=== PATIENT | female | born 1990 | race Caucasian/White ===

== ENCOUNTER 2017-03-31 05:03 | Emergency (ER) | payer BC ==
[2017-03-31 05:17] VITALS: BP 106/51
--- NOTE | 2017-03-31 05:19 | EDM.PDOC ---
ED HPI GENERAL MEDICAL PROBLEM - General Chief Complaint: Gastrointestinal Problem Stated Complaint: THOWING UP Time Seen by Provider: 03/31/17 05:18 - History of Present Illness INITIAL COMMENTS - FREE TEXT/NARRATIVE: 27-year-old female presents emergency room with vomiting and abdominal discomfort. This started around 3:00 this morning. She has some mild epigastric discomfort. Patient had a prior episode similar to this this last fall and ended up having pancreatitis. Her pain this time isn't as severe. The cause of the pancreatitis could not be identified. There was some thought that was related to her underlying celiac disease. With today's illness, the patient is not aware of any preceding symptoms. She felt fine and normal yesterday. Bilateral Flank Pain Score (Numeric/FACES): 5 - Related Data Allergies Allergy/AdvReac Type Severity Reaction Status Date / Time albuterol Allergy Hyperactivi Verified 03/31/17 05:11 ty cephalexin Allergy Other Verified 09/19/16 13:19 codeine Allergy Rash Verified 09/19/16 13:19 Dairy Products Allergy Diarrhea Verified 09/19/16 13:19 gluten Allergy Other Verified 09/19/16 13:19 Iodinated Contrast Media - Allergy Hives Verified 09/19/16 15:35 Oral and [Iodinated Contrast Media - IV Dye] morphine Allergy Burning Verified 09/19/16 13:19 Sulfa (Sulfonamide Allergy Confusion Verified 09/19/16 13:19 Antibiotics) tramadol Allergy Confusion Verified 09/19/16 13:19 Home Meds: Home Meds Cholecalciferol (Vitamin D3) [Vitamin D] 5,000 intnl unit PO DAILY 04/23/14 [ History] Thyroid,Pork [Nature-Throid] 32.5 mg PO DAILY 05/13/15 [History] Past Medical History Gastrointestinal History: Reports: Celiac Disease Musculoskeletal History: Reports: Fibromyalgia Endocrine/Metabolic History: Reports: Hypothyroidism - Past Surgical History GI Surgical History: Reports: Cholecystectomy Social & Family History - Family History Family Medical History: Noncontributory - Tobacco Use Smoking Status *Q: Never Smoker Second Hand Smoke Exposure: No - Caffeine Use Caffeine Use: Reports: Coffee - Recreational Drug Use Recreational Drug Use: No ED ROS GENERAL - Review of Systems Review Of Systems: See Below Constitutional: Reports: No Symptoms HEENT: Reports: No Symptoms Respiratory: Reports: No Symptoms Cardiovascular: Reports: No Symptoms GI/Abdominal: Reports: Abdominal Pain, Nausea, Vomiting. Denies: Black Stool, Bloody Stool, Constipation, Diarrhea : Reports: No Symptoms Musculoskeletal: Reports: No Symptoms Skin: Reports: No Symptoms Neurological: Reports: No Symptoms ED EXAM, GI/ABD - Physical Exam Exam: See Below Exam Limited By: No Limitations General Appearance: Alert, No Apparent Distress Head: Atraumatic, Normocephalic Neck: Normal Inspection, Supple, Non-Tender, Full Range of Motion. No: Lymphadenopathy (L), Lymphadenopathy (R) Respiratory/Chest: No Respiratory Distress, Lungs Clear, Normal Breath Sounds Cardiovascular: Regular Rate, Rhythm, No Edema, No Murmur GI/Abdominal: Normal Bowel Sounds, Soft, Other (She has some upper abdominal discomfort seems to be worse in the right upper quadrant in the epigastric area. She has had a cholecystectomy in the past.). No: Distention, Guarding, Rebound, Rigidity Course - Vital Signs Last Recorded V/S: Last Vital Signs Temp 36.2 C 03/31/17 05:13 Pulse 83 03/31/17 05:13 Resp 20 03/31/17 05:13 BP 106/51 L 03/31/17 05:13 Pulse Ox 99 03/31/17 05:13 - Orders/Labs/Meds Labs: Laboratory Tests 03/31/17 03/31/17 03/31/17 Range/Units 05:25 05:25 05:45 WBC 8.53 (3.98-10.04) K/mm3 RBC 4.65 (3.98-5.22) M/mm3 Hgb 14.0 (11.2-15.7) gm/L Hct 40.0 (34.1-44.9) % MCV 86.0 (79.4-94.8) fl MCH 30.1 (25.6-32.2) pg MCHC 35.0 (32.2-35.5) g/dl RDW Std Deviation 38.5 (36.4-46.3) fL Plt Count 188 (182-369) K/mm3 MPV 10.8 (9.4-12.3) fl Neutrophils % (Manual) 70 H (40-60) % Band Neutrophils % 0 (0-10) % Lymphocytes % (Manual) 19 L (20-40) % Atypical Lymphs % 0 % Monocytes % (Manual) 9 (2-10) % Eosinophils % (Manual) 2 (0.7-5.8) % Basophils % (Manual) 0 L (0.1-1.2) Platelet Estimate Adequate RBC Morph Comment Normal Sodium (136-145) mEq/L Potassium (3.5-5.1) mEq/L Chloride (98-107) mEq/L Carbon Dioxide (21-32) mEq/L Anion Gap (5-15) BUN (7-18) mg/dL Creatinine (0.55-1.02) mg/dL Est Cr Clr Drug Dosing mL/min Estimated GFR (MDRD) (>60) mL/min BUN/Creatinine Ratio (14-18) Glucose (74-106) mg/dL Calcium (8.5-10.1) mg/dL Total Bilirubin (0.2-1.0) mg/dL AST (15-37) U/L ALT (14-59) U/L Alkaline Phosphatase (46-116) U/L Total Protein (6.4-8.2) g/dl Albumin (3.4-5.0) g/dl Globulin gm/dL Albumin/Globulin Ratio (1-2) Lipase (73-393) U/L Urine Color Yellow (Yellow) Urine Appearance Clear (Clear) Urine pH 6.0 (5.0-8.0) Ur Specific [place] 1.015 (1.005-1.030) Urine Protein Negative (Negative) Urine Glucose (UA) Negative (Negative) Urine Ketones Negative (Negative) Urine Occult Blood Trace-lysed H (Negative) Urine Nitrite Negative (Negative) Urine Bilirubin Negative (Negative) Urine Urobilinogen 0.2 (0.2-1.0) Ur Leukocyte Esterase Negative (Negative) Urine RBC 5-10 H (0-5) /hpf Urine WBC 0-5 (0-5) /hpf Ur Epithelial Cells 0-5 (0-5) /hpf Urine Bacteria Rare (FEW) /hpf Urine Mucus Not seen (FEW) /hpf Urine HCG, Qual Negative (NEGATIVE) 03/31/17 Range/Units 05:45 WBC (3.98-10.04) K/mm3 RBC (3.98-5.22) M/mm3 Hgb (11.2-15.7) gm/L Hct (34.1-44.9) % MCV (79.4-94.8) fl MCH (25.6-32.2) pg MCHC (32.2-35.5) g/dl RDW Std Deviation (36.4-46.3) fL Plt Count (182-369) K/mm3 MPV (9.4-12.3) fl Neutrophils % (Manual) (40-60) % Band Neutrophils % (0-10) % Lymphocytes % (Manual) (20-40) % Atypical Lymphs % % Monocytes % (Manual) (2-10) % Eosinophils % (Manual) (0.7-5.8) % Basophils % (Manual) (0.1-1.2) Platelet Estimate RBC Morph Comment Sodium 139 (136-145) mEq/L Potassium 3.6 (3.5-5.1) mEq/L Chloride 106 (98-107) mEq/L Carbon Dioxide 23 (21-32) mEq/L Anion Gap 13.6 (5-15) BUN 13 (7-18) mg/dL Creatinine 0.9 (0.55-1.02) mg/dL Est Cr Clr Drug Dosing 88.68 mL/min Estimated GFR (MDRD) > 60 (>60) mL/min BUN/Creatinine Ratio 14.4 (14-18) Glucose 93 (74-106) mg/dL Calcium 8.8 (8.5-10.1) mg/dL Total Bilirubin 1.0 (0.2-1.0) mg/dL AST 22 (15-37) U/L ALT 33 (14-59) U/L Alkaline Phosphatase 92 (46-116) U/L Total Protein 7.4 (6.4-8.2) g/dl Albumin 3.8 (3.4-5.0) g/dl Globulin 3.6 gm/dL Albumin/Globulin Ratio 1.1 (1-2) Lipase 136 (73-393) U/L Urine Color (Yellow) Urine Appearance (Clear) Urine pH (5.0-8.0) Ur Specific [place] (1.005-1.030) Urine Protein (Negative) Urine Glucose (UA) (Negative) Urine Ketones (Negative) Urine Occult Blood (Negative) Urine Nitrite (Negative) Urine Bilirubin (Negative) Urine Urobilinogen (0.2-1.0) Ur Leukocyte Esterase (Negative) Urine RBC (0-5) /hpf Urine WBC (0-5) /hpf Ur Epithelial Cells (0-5) /hpf Urine Bacteria (FEW) /hpf Urine Mucus (FEW) /hpf Urine HCG, Qual (NEGATIVE) Meds: Medications Discontinued Medications Generic Name Dose Route Start Last Admin Trade Name Olivia PRN Reason Stop Dose Admin Al Hydroxide/Mg Hydroxide 30 0 ml 03/31/17 05:34 03/31/17 05:57 ml/ Lidocaine HCl 15 ml PO 03/31/17 05:35 45 ml ONETIME ONE Administration Lactated Ringer's 1,000 mls @ 999 mls/hr 03/31/17 05:34 03/31/17 05:46 Ringers, Lactated IV 03/31/17 06:34 999 mls/hr .BOLUS ONE Administration Ondansetron HCl 4 mg 03/31/17 05:34 03/31/17 05:54 Zofran IVPUSH 03/31/17 05:35 4 mg ONETIME ONE Administration - Re-Assessments/Exams Free Text/Narrative Re-Assessment/Exam: 03/31/17 06:40 Upon arrival to the emergency room the patient was given Zofran and had an IV started. Her nausea promptly improved she still had some epigastric discomfort. Patient had some improvement with the GI cocktail her labs are back and are nonsuggestive lipase is normal urinalysis does not suggest an infectious process however she does have a few red cells present. Chemistries and CBC normal. HCG negative. 03/31/17 07:04 At this point the patient think she's okay to go home we all agree that a CT scan probably would not be of benefit. She agrees to return in 12 hours if not better sooner if getting worse. Departure - Departure Time of Disposition: 07:05 Disposition: Home, Self-Care 01 Clinical Impression: Gastroenteritis - Discharge Information Forms: ED Department Discharge Additional Instructions: Return to the emergency room with any questions or problems. Return in 12 hours if not improving, sooner if getting worse. You have been given Zofran 4 mg #10 from the machine in the waiting room. Use one every 4 hours as needed, it will dissolve on top of or underneath your tongue. Pickup some [id number] Pepcid, or famotidine, take 20 mg twice daily for 7 days and then decrease to once daily. Followup in the clinic on Saturday for recheck.
[2017-03-31] MEDS ORDERED: Alum Hydrox/Mag Hydrox/Simeth 30 ML, Lidocaine 2% 15 ML PO ONE ×2 (05:34)
[2017-03-31] MEDS ORDERED: Lactated Ringers 1,000 ML IV ONE (05:34)
[2017-03-31] MEDS ORDERED: Ondansetron 4 MG/2 ML SDV IVPUSH ONE (05:34)
== END 2017-03-31 07:39 | disposition home or self-care (01) ==
LOC: JD.ED 05:03
DX: K52.9 Noninfective gastroenteritis and colitis, unspecified (principal); E03.9 Hypothyroidism, unspecified; Z90.49 Acquired absence of other specified parts of digestive tract; Z79.899 Other long term (current) drug therapy; Z88.5 Allergy status to narcotic agent; Z88.1 Allergy status to other antibiotic agents; Z88.2 Allergy status to sulfonamides; Z91.041 Radiographic dye allergy status; Z91.011 Allergy to milk products
CPT/HCPCS: 36415; 80053; 81001; 81025; 83690; 85025; 96361; 96374; 99284; A9270; J2405; J7120

== ENCOUNTER 2017-06-09 13:24 | Emergency (ER) | payer BC ==
[2017-06-09] MEDS ORDERED: Sodium Chloride 0.9% 1,000 ML IV ONE (14:01)
[2017-06-09] MEDS ORDERED: Ondansetron 4 MG/2 ML SDV IVPUSH ONE (14:01)
[2017-06-09] MEDS ORDERED: Sodium Chloride 0.9% 10 ML Syringe FLUSH PRN (14:01)
[2017-06-09] MEDS ORDERED: HYDROmorphone 0.5 MG/0.5 ML Syringe IVPUSH ONE (14:09)
--- NOTE | 2017-06-09 16:48 | EDM.PDOC ---
ED HPI GENERAL MEDICAL PROBLEM - General Chief Complaint: Abdominal Pain Stated Complaint: ABDOMINAL PAIN Time Seen by Provider: 06/09/17 13:57 Source of Information: Reports: Patient History Limitations: Reports: No Limitations - History of Present Illness INITIAL COMMENTS - FREE TEXT/NARRATIVE: 27-year-old female presents for evaluation treatment of abdominal pain. Reports the pain is generalized and is located throughout her entire abdomen and flanks. Patient states that the pain has been going on for the last few days and is steadily worsening. Reports that today is the worst pain she's had thus far. Describes the pain as a cramping sensation and a "pulled muscle" and rates it as a 7 or 8 out of 10. Reports that movement makes pain worse. Patient reports nausea but states that is episodic and she always has nausea. She also reports dizziness but again reports that this is episodic and she chronically has dizziness. Patient states that she does feel constipated. Last bowel movement was yesterday, however, it was a small bowel movement and difficult to pass. She denies any fevers, chills, vomiting, dysuria, hematuria or diarrhea. She states that she did see some bright red blood on the toilet tissue several days ago. She has been taking Colace for her constipation and Zofran for her nausea. Last dose of Zofran was yesterday. Last menstrual period was the beginning of May. Patient has a past medical history of fibromyalgia and celiac disease. She states that because of her fibromyalgia it is difficult for her to identify exactly where she has pain. Review of patient's records show that she was previously hospitalized for pancreatitis in August of 2016. 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 Lower Abdominal Pain Score (Numeric/FACES): 7 - Related Data Allergies Allergy/AdvReac Type Severity Reaction Status Date / Time albuterol Allergy Hyperactivi Verified 03/31/17 05:11 ty cephalexin Allergy Other Verified 09/19/16 13:19 codeine Allergy Rash Verified 09/19/16 13:19 Dairy Products Allergy Diarrhea Verified 09/19/16 13:19 gluten Allergy Other Verified 09/19/16 13:19 Iodinated Contrast- Oral and Allergy Hives Verified 09/19/16 15:35 IV Dye [Iodinated Contrast Media - IV Dye] morphine Allergy Burning Verified 09/19/16 13:19 Sulfa (Sulfonamide Allergy Confusion Verified 09/19/16 13:19 Antibiotics) tramadol Allergy Confusion Verified 09/19/16 13:19 Home Meds: Home Meds Cholecalciferol (Vitamin D3) [Vitamin D] 5,000 intnl unit PO DAILY 04/23/14 [ History] Thyroid,Pork [Nature-Throid] 32.5 mg PO DAILY 05/13/15 [History] Past Medical History Gastrointestinal History: Reports: Celiac Disease Musculoskeletal History: Reports: Fibromyalgia Endocrine/Metabolic History: Reports: Hypothyroidism - Past Surgical History GI Surgical History: Reports: Cholecystectomy Social & Family History - Family History Family Medical History: Noncontributory - Tobacco Use Smoking Status *Q: Never Smoker Second Hand Smoke Exposure: No - Caffeine Use Caffeine Use: Reports: Coffee - Recreational Drug Use Recreational Drug Use: No ED ROS GENERAL - Review of Systems Review Of Systems: See Below Constitutional: Denies: Fever, Chills GI/Abdominal: Reports: Abdominal Pain, Nausea (episodic). Denies: Diarrhea, Vomiting : Reports: No Symptoms, Flank Pain (bilteral). Denies: Dysuria, Hematuria Neurological: Reports: Tremors (chronic) ED EXAM, GI/ABD - Physical Exam Exam: See Below Exam Limited By: No Limitations General Appearance: Alert, WD/WN, No Apparent Distress, Other (patinet is wearing sunglasses during my examination) Ears: Normal External Exam Nose: Normal Inspection Throat/Mouth: Normal Inspection, Normal Lips, Normal Voice, No Airway Compromise Neck: Normal Inspection Respiratory/Chest: No Respiratory Distress, Lungs Clear, Normal Breath Sounds Cardiovascular: Normal Peripheral Pulses, Regular Rate, Rhythm, No Murmur GI/Abdominal Exam: Normal Bowel Sounds, Soft, Tender (generalized; reports pain with any palpation) Neurological: Alert, Oriented, Normal Cognition Psychiatric: Normal Affect, Normal Mood Skin Exam: Warm, Dry, Normal Color Course - Vital Signs Last Recorded V/S: Last Vital Signs Temp 36.2 C 06/09/17 13:33 Pulse 78 06/09/17 17:10 Resp 16 06/09/17 17:10 BP 101/64 06/09/17 17:10 Pulse Ox 100 06/09/17 17:10 - Orders/Labs/Meds Labs: Laboratory Tests 06/09/17 06/09/17 06/09/17 Range/Units 14:10 14:10 14:10 WBC 6.03 (3.98-10.04) K/mm3 RBC 4.60 (3.98-5.22) M/mm3 Hgb 13.8 (11.2-15.7) gm/L Hct 39.6 (34.1-44.9) % MCV 86.1 (79.4-94.8) fl MCH 30.0 (25.6-32.2) pg MCHC 34.8 (32.2-35.5) g/dl RDW Std Deviation 37.7 (36.4-46.3) fL Plt Count 184 (182-369) K/mm3 MPV 10.4 (9.4-12.3) fl Neutrophils % (Manual) 60 (40-60) % Band Neutrophils % 1 (0-10) % Lymphocytes % (Manual) 23 (20-40) % Atypical Lymphs % 2 % Monocytes % (Manual) 11 H (2-10) % Eosinophils % (Manual) 3 (0.7-5.8) % Basophils % (Manual) 0 L (0.1-1.2) Platelet Estimate Adequate Plt Morphology Comment Normal RBC Morph Comment Normal Sodium 139 (136-145) mEq/L Potassium 4.5 (3.5-5.1) mEq/L Chloride 104 (98-107) mEq/L Carbon Dioxide 26 (21-32) mEq/L Anion Gap 13.5 (5-15) BUN 11 (7-18) mg/dL Creatinine 0.9 (0.55-1.02) mg/dL Est Cr Clr Drug Dosing 88.68 mL/min Estimated GFR (MDRD) > 60 (>60) mL/min BUN/Creatinine Ratio 12.2 L (14-18) Glucose 87 (74-106) mg/dL Calcium 9.7 (8.5-10.1) mg/dL Total Bilirubin 1.4 H (0.2-1.0) mg/dL AST 20 (15-37) U/L ALT 27 (14-59) U/L Alkaline Phosphatase 96 (46-116) U/L C-Reactive Protein < 0.2 (<1.0) mg/dL Total Protein 7.3 (6.4-8.2) g/dl Albumin 3.9 (3.4-5.0) g/dl Globulin 3.4 gm/dL Albumin/Globulin Ratio 1.2 (1-2) Lipase (73-393) U/L HCG, Qual Negative (NEGATIVE) Urine Color (Yellow) Urine Appearance (Clear) Urine pH (5.0-8.0) Ur Specific [place] (1.005-1.030) Urine Protein (Negative) Urine Glucose (UA) (Negative) Urine Ketones (Negative) Urine Occult Blood (Negative) Urine Nitrite (Negative) Urine Bilirubin (Negative) Urine Urobilinogen (0.2-1.0) Ur Leukocyte Esterase (Negative) Urine RBC (0-5) /hpf Urine WBC (0-5) /hpf Ur Epithelial Cells (0-5) /hpf Urine Bacteria (FEW) /hpf Urine Mucus (FEW) /hpf Urine Yeast (NOT SEEN) 06/09/17 06/09/17 Range/Units 14:10 15:40 WBC (3.98-10.04) K/mm3 RBC (3.98-5.22) M/mm3 Hgb (11.2-15.7) gm/L Hct (34.1-44.9) % MCV (79.4-94.8) fl MCH (25.6-32.2) pg MCHC (32.2-35.5) g/dl RDW Std Deviation (36.4-46.3) fL Plt Count (182-369) K/mm3 MPV (9.4-12.3) fl Neutrophils % (Manual) (40-60) % Band Neutrophils % (0-10) % Lymphocytes % (Manual) (20-40) % Atypical Lymphs % % Monocytes % (Manual) (2-10) % Eosinophils % (Manual) (0.7-5.8) % Basophils % (Manual) (0.1-1.2) Platelet Estimate Plt Morphology Comment RBC Morph Comment Sodium (136-145) mEq/L Potassium (3.5-5.1) mEq/L Chloride (98-107) mEq/L Carbon Dioxide (21-32) mEq/L Anion Gap (5-15) BUN (7-18) mg/dL Creatinine (0.55-1.02) mg/dL Est Cr Clr Drug Dosing mL/min Estimated GFR (MDRD) (>60) mL/min BUN/Creatinine Ratio (14-18) Glucose (74-106) mg/dL Calcium (8.5-10.1) mg/dL Total Bilirubin (0.2-1.0) mg/dL AST (15-37) U/L ALT (14-59) U/L Alkaline Phosphatase (46-116) U/L C-Reactive Protein (<1.0) mg/dL Total Protein (6.4-8.2) g/dl Albumin (3.4-5.0) g/dl Globulin gm/dL Albumin/Globulin Ratio (1-2) Lipase 116 (73-393) U/L HCG, Qual (NEGATIVE) Urine Color Light yellow (Yellow) Urine Appearance Clear (Clear) Urine pH 6.0 (5.0-8.0) Ur Specific [place] 1.020 (1.005-1.030) Urine Protein Negative (Negative) Urine Glucose (UA) Negative (Negative) Urine Ketones Negative (Negative) Urine Occult Blood Negative (Negative) Urine Nitrite Negative (Negative) Urine Bilirubin Negative (Negative) Urine Urobilinogen 0.2 (0.2-1.0) Ur Leukocyte Esterase Negative (Negative) Urine RBC Not seen (0-5) /hpf Urine WBC 0-5 (0-5) /hpf Ur Epithelial Cells 5-10 H (0-5) /hpf Urine Bacteria Rare (FEW) /hpf Urine Mucus Not seen (FEW) /hpf Urine Yeast Not seen (NOT SEEN) Meds: Medications Discontinued Medications Generic Name Dose Route Start Last Admin Trade Name Freq PRN Reason Stop Dose Admin Hydromorphone HCl 0.5 mg 06/09/17 14:09 06/09/17 14:27 Dilaudid IVPUSH 06/09/17 14:10 0.5 mg ONETIME ONE Administration Sodium Chloride 1,000 mls @ 999 mls/hr 06/09/17 14:01 06/09/17 14:23 Normal Saline IV 06/09/17 15:01 999 mls/hr ONETIME ONE Administration Ondansetron HCl 4 mg 06/09/17 14:01 06/09/17 14:25 Zofran IVPUSH 06/09/17 14:02 4 mg ONETIME ONE Administration Sodium Chloride 10 ml 06/09/17 14:01 06/09/17 14:10 Saline Flush FLUSH 10 ml ASDIRECTED PRN Administration Keep Vein Open - Radiology Interpretation Free Text/Narrative:: flat and upright abdominal xrays show no air fluid lines; increased stool in the right colon. - Re-Assessments/Exams Free Text/Narrative Re-Assessment/Exam: 06/09/17 16:41 Labs returned. Given that the patient's lab work and vital signs are within normal limits, I do not feel that a CT scan is warranted at this time. The patient then talks about how she has had abdominal pain for what sounds like several years. She states that she has been the [facility] for this. No etiology for her abdominal pain has been found thus far. I encouraged her that we were able to rule out things like pancreatitis, bowel obstruction, etc. I feel that she is likely constipated however, she is adamant that this pain is not from constipation. I will discharge her home with instructions to follow-up with her primary care provider. Discharge instructions as documented. Departure - Departure Time of Disposition: 16:47 Disposition: Home, Self-Care 01 Condition: Fair Clinical Impression: Abdominal pain of unknown etiology, Constipation - Discharge Information Instructions: Constipation, Adult, Abdominal Pain, Adult, [id number] Referrals: Mellissa Delong PA [Primary Care Provider] - Forms: ED Department Discharge Additional Instructions: Go home and rest. [id number] Tylenol or Motrin as needed for pain relief. Continue using your Colace, fluids and fiber. Follow-up with your primary care provider this week. Please return to ER if your symptoms change or worsen.
[2017-06-09 17:24] VITALS: BP 101/64
--- NOTE | 2017-06-11 10:32 | CR ---
Abdomen: Supine and upright views of the abdomen were obtained. Comparison: Previous abdominal x-ray of 09/19/16. Surgical clips are seen from prior cholecystectomy. Bowel gas pattern is normal. No abnormal calcifications or discrete soft tissue abnormality is seen. No free air is seen. Bony structures are within normal limits for the patient's age. Slight scoliosis is incidentally noted. Impression: 1. Incidental findings. Diagnostic code #2
== END 2017-06-09 17:10 | disposition home or self-care (01) ==
LOC: JD.ED 13:24
DX: K59.00 Constipation, unspecified (principal); E03.9 Hypothyroidism, unspecified; Z88.1 Allergy status to other antibiotic agents; Z88.5 Allergy status to narcotic agent; Z88.2 Allergy status to sulfonamides; Z91.041 Radiographic dye allergy status; Z79.899 Other long term (current) drug therapy; Z90.49 Acquired absence of other specified parts of digestive tract
CPT/HCPCS: 36415; 74020; 80053; 81001; 83690; 84703; 85025; 86140; 96361; 96374; 96375; 99284; J1170; J2405; J7040; J7050

== ENCOUNTER 2017-06-30 00:42 | Emergency (ER) | payer BC ==
[2017-06-30] MEDS ORDERED: LORazepam 2 MG/ML MDV IVPUSH ONE (00:47)
[2017-06-30 00:48] VITALS: BP 137/72
--- NOTE | 2017-06-30 00:56 | EDM.PDOC ---
ED HPI GENERAL MEDICAL PROBLEM - General Chief Complaint: Neuro Symptoms/Deficits Stated Complaint: [facility] Time Seen by Provider: 06/30/17 00:51 Source of Information: Reports: Patient History Limitations: Reports: No Limitations - History of Present Illness INITIAL COMMENTS - FREE TEXT/NARRATIVE: 27-year-old female brought to the ED per ambulance with suspected seizure. She continues to have violent shaking episodes that come and go. She has an IV established and right antecubital fossa and has received 2 mg of Ativan en route to hospital by paramedics. She has no known seizure disorder. Upon arrival she has generalized shaking which last for a very short period of time with no symmetrical tonic clonic activity. Her O2 sats remained 100% on room air. She is exhibiting signs symptoms of pseudoseizure disorder. She is nonverbal at this time. Eyes are open and she is not focusing on any one thing in the room. 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 (see below) (Has received Ativan 1 mg IV 2 doses en route to hospital by paramedics.) Neck Pain Score (Numeric/FACES): 5 - Related Data Allergies Allergy/AdvReac Type Severity Reaction Status Date / Time albuterol Allergy Hyperactivi Verified 03/31/17 05:11 ty cephalexin Allergy Other Verified 09/19/16 13:19 codeine Allergy Rash Verified 09/19/16 13:19 Dairy Products Allergy Diarrhea Verified 09/19/16 13:19 gluten Allergy Other Verified 09/19/16 13:19 hydrocodone Allergy Nausea Verified 06/30/17 01:03 hydromorphone [From Dilaudid] Allergy Burning Verified 06/30/17 01:03 Iodinated Contrast- Oral and Allergy Hives Verified 09/19/16 15:35 IV Dye [Iodinated Contrast Media - IV Dye] morphine Allergy Burning Verified 09/19/16 13:19 soy Allergy Abdominal Verified 06/30/17 01:03 Pain Sulfa (Sulfonamide Allergy Confusion Verified 09/19/16 13:19 Antibiotics) tramadol Allergy Confusion Verified 09/19/16 13:19 Home Meds: Home Meds Cholecalciferol (Vitamin D3) [Vitamin D] 5,000 intnl unit PO DAILY 04/23/14 [ History] Thyroid,Pork [Nature-Throid] 32.5 mg PO DAILY 05/13/15 [History] Past Medical History Gastrointestinal History: Reports: Celiac Disease Musculoskeletal History: Reports: Fibromyalgia Endocrine/Metabolic History: Reports: Hypothyroidism - Past Surgical History GI Surgical History: Reports: Cholecystectomy Social & Family History - Family History Family Medical History: Noncontributory - Tobacco Use Smoking Status *Q: Never Smoker Second Hand Smoke Exposure: No - Caffeine Use Caffeine Use: Reports: Coffee - Recreational Drug Use Recreational Drug Use: No - Living Situation & Occupation Living situation: Reports: Single Occupation: Employed ED ROS GENERAL - Review of Systems Review Of Systems: Unable To Obtain - Physical Exam Exam: See Below Exam Limited By: Altered Mental Status General Appearance: Lethargic, Mild Distress Eye Exam: Bilateral Eye: Normal Inspection (Pupils are dilated to 9 mm bilaterally but do respond to light. There is no gaze palsy.) Throat/Mouth: Normal Inspection, Normal Lips, Normal Teeth, Normal Oropharynx, Other Head Exam: Atraumatic (Note is that she has bitten her tongue.), Normocephalic Neck: Normal Inspection, Supple, Non-Tender, Full Range of Motion Respiratory/Chest: Lungs Clear, Normal Breath Sounds, No Accessory Muscle Use, Chest Non-Tender, Respiratory Distress (His tachypnea At rest 24/m i.e. hyperventilation.) Cardiovascular: Normal Peripheral Pulses, Regular Rate, Rhythm, No Edema ( Resting tachycardia of 1 20/m.), No Gallop, No Murmur, No Rub, Tachycardia GI/Abdominal: Normal Bowel Sounds, Soft, Non-Tender, No Organomegaly, No Distention Neuro Exam (Abbreviated): Unresponsive (She initially had a shaking spell when I first examined her but she is not verbally responding at this time. Clinically she is exhibiting pseudoseizure activity.), Other (Babinski's were negative.) DTR: 1+: Achilles (R), Achilles (L), 2+: Bicep (R), Bicep (L), Patella (R), Patella (L) Back Exam: Normal Inspection, Full Range of Motion Extremities: Normal Inspection, Normal Range of Motion, Non-Tender, No Pedal Edema, Normal Capillary Refill Psychiatric: Normal Affect, Normal Mood Skin Exam: Warm, Dry, Intact, Normal Color, No Rash Course - Vital Signs Last Recorded V/S: Last Vital Signs Temp 36.7 C 06/30/17 00:44 Pulse 119 H 06/30/17 00:44 Resp 24 H 06/30/17 00:44 BP 137/72 06/30/17 00:44 Pulse Ox 100 06/30/17 00:44 - Orders/Labs/Meds Orders: Active Orders 24 hr Category Date Time Status PROLACTIN [REF] Stat Lab 06/30/17 01:15 Received Labs: Laboratory Tests 06/30/17 06/30/17 06/30/17 Range/Units 01:15 01:15 01:15 WBC 5.40 (3.98-10.04) K/mm3 RBC 4.37 (3.98-5.22) M/mm3 Hgb 13.1 (11.2-15.7) gm/L Hct 37.4 (34.1-44.9) % MCV 85.6 (79.4-94.8) fl MCH 30.0 (25.6-32.2) pg MCHC 35.0 (32.2-35.5) g/dl RDW Std Deviation 37.7 (36.4-46.3) fL Plt Count 184 (182-369) K/mm3 MPV 10.6 (9.4-12.3) fl Neutrophils % (Manual) 55 (40-60) % Band Neutrophils % 2 (0-10) % Lymphocytes % (Manual) 32 (20-40) % Atypical Lymphs % 0 % Monocytes % (Manual) 6 (2-10) % Eosinophils % (Manual) 5 (0.7-5.8) % Basophils % (Manual) 0 L (0.1-1.2) Platelet Estimate Adequate RBC Morph Comment Normal Sodium 140 (136-145) mEq/L Potassium 3.5 (3.5-5.1) mEq/L Chloride 104 (98-107) mEq/L Carbon Dioxide 22 (21-32) mEq/L Anion Gap 17.5 H (5-15) BUN 18 (7-18) mg/dL Creatinine 1.0 (0.55-1.02) mg/dL Est Cr Clr Drug Dosing TNP Estimated GFR (MDRD) > 60 (>60) mL/min BUN/Creatinine Ratio 18.0 (14-18) Glucose 106 (74-106) mg/dL Calcium 9.3 (8.5-10.1) mg/dL Magnesium 1.8 (1.8-2.4) mg/dl Total Bilirubin 1.0 (0.2-1.0) mg/dL AST 17 (15-37) U/L ALT 19 (14-59) U/L Alkaline Phosphatase 87 (46-116) U/L Total Protein 7.3 (6.4-8.2) g/dl Albumin 3.7 (3.4-5.0) g/dl Globulin 3.6 gm/dL Albumin/Globulin Ratio 1.0 (1-2) TSH 3rd Generation (0.358-3.74) uIU/mL HCG, Qual Negative (NEGATIVE) 06/30/17 Range/Units 01:15 WBC (3.98-10.04) K/mm3 RBC (3.98-5.22) M/mm3 Hgb (11.2-15.7) gm/L Hct (34.1-44.9) % MCV (79.4-94.8) fl MCH (25.6-32.2) pg MCHC (32.2-35.5) g/dl RDW Std Deviation (36.4-46.3) fL Plt Count (182-369) K/mm3 MPV (9.4-12.3) fl Neutrophils % (Manual) (40-60) % Band Neutrophils % (0-10) % Lymphocytes % (Manual) (20-40) % Atypical Lymphs % % Monocytes % (Manual) (2-10) % Eosinophils % (Manual) (0.7-5.8) % Basophils % (Manual) (0.1-1.2) Platelet Estimate RBC Morph Comment Sodium (136-145) mEq/L Potassium (3.5-5.1) mEq/L Chloride (98-107) mEq/L Carbon Dioxide (21-32) mEq/L Anion Gap (5-15) BUN (7-18) mg/dL Creatinine (0.55-1.02) mg/dL Est Cr Clr Drug Dosing Estimated GFR (MDRD) (>60) mL/min BUN/Creatinine Ratio (14-18) Glucose (74-106) mg/dL Calcium (8.5-10.1) mg/dL Magnesium (1.8-2.4) mg/dl Total Bilirubin (0.2-1.0) mg/dL AST (15-37) U/L ALT (14-59) U/L Alkaline Phosphatase (46-116) U/L Total Protein (6.4-8.2) g/dl Albumin (3.4-5.0) g/dl Globulin gm/dL Albumin/Globulin Ratio (1-2) TSH 3rd Generation 5.482 H (0.358-3.74) uIU/mL HCG, Qual (NEGATIVE) Meds: Medications Discontinued Medications Generic Name Dose Route Start Last Admin Trade Name Olivia PRN Reason Stop Dose Admin Folic Acid 1 mg 06/30/17 02:30 06/30/17 03:06 Folic Acid IV 06/30/17 02:31 Not Given ONETIME ONE Dextrose/Sodium Chloride 1,000 mls @ 200 mls/hr 06/30/17 01:00 06/30/17 00:58 Dextrose 5%-Normal Saline IV 200 mls/hr ASDIRECTED BEL Administration Magnesium Sulfate 2 gm/ Premix 50 mls @ 25 mls/hr 06/30/17 02:30 06/30/17 02: 52 IV 06/30/17 04:29 75 mls/hr ONETIME ONE Administration Thiamine HCl 100 mg/ Sodium 101 mls @ 202 mls/hr 06/30/17 02:29 06/30/17 03: 06 Chloride IV 06/30/17 02:30 Not Given ONETIME ONE Multivitamins/Minerals 10 ml/ 1,011.2 mls @ 200 mls/hr 06/30/17 02:45 02:46 Thiamine HCl 100 mg/ Folic IV 06/30/17 07:48 999 mls/hr Acid 1 mg/ Dextrose/Sodium ONETIME ONE Administration Chloride Lorazepam 1 mg 06/30/17 00:47 06/30/17 00:58 Ativan IVPUSH 06/30/17 00:48 1 mg ONETIME ONE Administration Thiamine HCl Confirm 06/30/17 02:37 06/30/17 03:06 Vitamin B-1 Administered 06/30/17 02:38 Not Given Dose 200 mg .ROUTE .STK-MED ONE - Radiology Interpretation Free Text/Narrative:: 27-year-old female presents to the hospital per ambulance after they were summoned to a person having a seizure. Paramedics recognized that her shaking episodes were asymmetrical and morbid violent shaking and atypical for any form of seizure disorder. She has received Ativan 1 mg IV on 2 occasions en route to the hospital which seemed to slow down her violent shaking episodes. She did this shaking episode in the hallway as well as once when I was in the room that lasted maybe 5 seconds. There is no symmetrical tonic-clonic movements but violent shaking on the bed. This is pseudoseizure disorder. Plan Ativan 1 mg IV. Routine labs to be done. She is on a pork form of thyroid supplement. - Re-Assessments/Exams Free Text/Narrative Re-Assessment/Exam: 06/30/17 03:31 patient had a few spontaneous muscle twitches but no focal seizure activity when I was in the room. She seemed to settle left of the third dose of Ativan 1 mg IV. Family is very concerned about her. She is appears to gone downhill dramatically since she got 3 months ago. Often needs to be pushed around in a wheelchair. They feel that there is a neurological disorder that we are missing an unhappy with physician care they have received thus far. She has been down to the [facility] on at least one occasion was diagnosed with celiac disease recently. He is also known to be hypothyroid but prefers organic medicines or natural medicines and therefore is taking a desiccated thyroid preparation for thyroid replacement hormone. She is following up with Dr. Jaquan coon in [facility] for chelation therapy and high-dose vitamin infusions. She did have a normal MRI of her brain carried out by Mellissa manriquez that I reviewed. 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 Current she currently she is exhibiting pseudoseizure activities. The family calls them spasms. She can be completely normal at other times however. They felt she might improve she had vitamins given now and magnesium therefore banana bag was utilized and infused over an hour with 2 g of magnesium thiamine 100 mg 10 mg of metal multivitamin complex and 1 mg of folic acid IV. The family felt that her muscle spasm seemed to settle after this. She was thus discharged to home. They have plans to follow up with both gastroenterology and neurology in [place] within the next 2 weeks. Departure - Departure Time of Disposition: 03:44 Disposition: Home, Self-Care 01 Condition: Fair Clinical Impression: Chronic fatigue syndrome with fibromyalgia, Pseudoseizures, Hypothyroidism ( acquired), Celiac disease/sprue - Discharge Information Instructions: Nonepileptic Seizures, Fatigue, Hypothyroidism Referrals: Mellissa Manriquez PA [Primary Care Provider] - Forms: ED Department Discharge Additional Instructions: Evaluation in the emergency room tonight in regards to violent shaking episodes which we call pseudoseizure disorder. The cause of this disorder is unknown. Lab work identified no major infective processes. He did identify that your thyroid medication needs to be taken on a more consistent basis or the dosage needs to be increased as your thyroid stimulating hormone remains elevated at 5.482. If treatment is appropriate it should be down around 2.0. At present you are functioning with a underactive thyroid gland. You're treated in the emergency room with intravenous banana bag which contains 2 g of magnesium 1 mg of folic acid and 100 mg of thiamine and 10 mg of multivitamin vitamins which are almost all vitamin B and C vitamins. Suggest follow-up with neurology services as planned and gastroenterology services to address gluten enteropathy your celiac disease. - My Orders Last 24 Hours: My Active Orders 06/30/17 01:15 PROLACTIN [REF] Stat - Assessment/Plan Last 24 Hours: My Active Orders 06/30/17 01:15 PROLACTIN [REF] Stat
[2017-06-30] MEDS ORDERED: Dextrose 5%-0.9% NaCl 1,000 ML IV SCH (01:00)
[2017-06-30] MEDS ORDERED: Thiamine 100 MG in Sodium Chloride 0.9% 100 ML IV ONE (02:29)
[2017-06-30] MEDS ORDERED: MVI, Adult with Vitamin K 10 ML SDV IV ONE (02:30)
[2017-06-30] MEDS ORDERED: Folic Acid 50 MG/10 ML MDV IV ONE (02:30)
[2017-06-30] MEDS ORDERED: Magnesium Sulfate/Water 2 GM in Premix Bag 1 BAG IV ONE (02:30)
[2017-06-30] MEDS ORDERED: Thiamine 200 MG/2 ML MDV ONE (02:37)
[2017-06-30] MEDS ORDERED: THIAMINE IV ONE ×4 (02:45)
[2017-06-30] MEDS ORDERED: [UNRECOGNIZED DRUG - OTHER] IV ONE ×4 (02:45)
[2017-06-30] MEDS ORDERED: VITAMIN K IV ONE ×4 (02:45)
[2017-06-30] MEDS ORDERED: FOLIC ACID IV ONE ×4 (02:45)
[2017-06-30] MEDS ORDERED: MVI IV ONE ×4 (02:45)
== END 2017-06-30 04:15 | disposition home or self-care (01) ==
LOC: JD.ED 00:42
DX: M79.7 Fibromyalgia (principal); K90.0 Celiac disease; E03.9 Hypothyroidism, unspecified; R53.82 Chronic fatigue, unspecified; Z88.1 Allergy status to other antibiotic agents; Z88.5 Allergy status to narcotic agent; Z88.2 Allergy status to sulfonamides; Z91.041 Radiographic dye allergy status; Z79.899 Other long term (current) drug therapy; Z90.49 Acquired absence of other specified parts of digestive tract
CPT/HCPCS: 36415; 80053; 83735; 84146; 84443; 84703; 85025; 96361; 96365; 96366; 96368; 96375; 99285; J2060; J3411; J7042; J3475

== ENCOUNTER 2017-06-30 16:16 | Emergency (ER) | payer BC, SELFPAY ==
[2017-06-30] MEDS ORDERED: LORazepam 2 MG/ML MDV IVPUSH ONE ×3 (16:29→18:58)
[2017-06-30 16:39] VITALS: BP 142/71
[2017-06-30] MEDS: LORazepam 2 MG/ML MDV ONE ×2 (16:39→17:26)
[2017-06-30] MEDS ORDERED: LORazepam 2 MG/ML MDV ONE (16:40)
--- NOTE | 2017-06-30 18:17 | EDM.PDOC ---
ED HPI GENERAL MEDICAL PROBLEM - General Chief Complaint: Neurological Problem Stated Complaint: SEIZURE IN THE CAR Time Seen by Provider: 06/30/17 16:16 - History of Present Illness INITIAL COMMENTS - FREE TEXT/NARRATIVE: 27-year-old female presents emergency room with seizure-like activity. Patient was seen here shortly after midnight today had a fairly extensive evaluation and was thought to have pseudoseizures. Patient's states that the patient's had multiple activities over the last couple hours they were getting her ready to go to [place] for a second opinion and between the house in here she had 5 of these activities. Thought to be seizures the patient's states patient has had increased activity over the last several months where she has used involuntary leg movements were she's awake and talking during them but these are clearly different the patient has these activities the last 6-8 seconds where she has mild muscle shaking in all 4 extremities her head will arch back and her eyes were back in her head just prior to the starting. So the seem different I did have the opportunity to observe several of these where her pulse would go up as her eyes rolled back she would develop this very high-frequency involuntary movement of all 4 extremities this did last 6-10 seconds. After her last episode I was able to check her eyes immediately after words were eyes were dilated been slowly responded to light. During these episodes she has not had any loss of bowel or bladder control Headache Pain Score (Numeric/FACES): 5 - Related Data Allergies Allergy/AdvReac Type Severity Reaction Status Date / Time albuterol Allergy Hyperactivi Verified 06/30/17 16:33 ty cephalexin Allergy Other Verified 06/30/17 16:33 codeine Allergy Rash Verified 06/30/17 16:33 Dairy Products Allergy Diarrhea Verified 06/30/17 16:33 gluten Allergy Other Verified 06/30/17 16:33 hydrocodone Allergy Nausea Verified 06/30/17 16:33 hydromorphone [From Dilaudid] Allergy Burning Verified 06/30/17 16:33 Iodinated Contrast- Oral and Allergy Hives Verified 06/30/17 16:33 IV Dye [Iodinated Contrast Media - IV Dye] morphine Allergy Burning Verified 06/30/17 16:33 soy Allergy Abdominal Verified 06/30/17 16:33 Pain Sulfa (Sulfonamide Allergy Confusion Verified 06/30/17 16:33 Antibiotics) tramadol Allergy Confusion Verified 06/30/17 16:33 Home Meds: Home Meds Cholecalciferol (Vitamin D3) [Vitamin D] 5,000 intnl unit PO DAILY 04/23/14 [ History] Thyroid,Pork [Nature-Throid] 32.5 mg PO DAILY 05/13/15 [History] Past Medical History Gastrointestinal History: Reports: Celiac Disease Musculoskeletal History: Reports: Fibromyalgia Endocrine/Metabolic History: Reports: Hypothyroidism - Past Surgical History GI Surgical History: Reports: Cholecystectomy Social & Family History - Family History Family Medical History: Noncontributory - Tobacco Use Smoking Status *Q: Never Smoker Second Hand Smoke Exposure: No - Caffeine Use Caffeine Use: Reports: Coffee - Recreational Drug Use Recreational Drug Use: No - Living Situation & Occupation Living situation: Reports: Single Occupation: Employed ED ROS GENERAL - Review of Systems Review Of Systems: Unable To Obtain - Physical Exam Exam: See Below Exam Limited By: Other (Postictal like activity) General Appearance: Lethargic Eye Exam: Bilateral Eye: Normal Inspection, PERRL (After one of her episodes I was able to observe and her pupils were dilated and slowly did respond to light) Ears: Normal External Exam, Normal Canal, Hearing Grossly Normal, Normal TMs Nose: Normal Inspection, Normal Mucosa Throat/Mouth: Normal Inspection, Normal Lips, Normal Oropharynx, Normal Voice, No Airway Compromise Head Exam: Atraumatic, Normocephalic Neck: Normal Inspection, Full Range of Motion. No: Lymphadenopathy (L), Lymphadenopathy (R), Tender Midline, Thyromegaly Respiratory/Chest: No Respiratory Distress, Lungs Clear, Normal Breath Sounds Cardiovascular: Regular Rate, Rhythm, No Edema, No Murmur GI/Abdominal: Normal Bowel Sounds, Soft, Non-Tender Neuro Exam (Abbreviated): Confused, Slow to Respond Back Exam: Normal Inspection, Paraspinal Tenderness, Vertebral Tenderness. No: CVA Tenderness (L), CVA Tenderness (R) Extremities: Normal Inspection, No Pedal Edema Course - Vital Signs Last Recorded V/S: Last Vital Signs Temp 37.9 C 06/30/17 16:33 Pulse 130 H 06/30/17 16:33 Resp BP 142/71 H 06/30/17 16:33 Pulse Ox 95 06/30/17 16:33 - Orders/Labs/Meds Orders: Active Orders 24 hr Category Date Time Status Head wo Cont [CT] Stat Exams 06/30/17 16:43 Taken DRUG SCREEN, URINE [URCHEM] Stat Lab 06/30/17 18:11 Uncollected URINALYSIS W/MICROSCOPIC [UA W/MICROSCOPIC] [URIN] Stat Lab 06/30/17 18:10 Uncollected Meds: Medications Discontinued Medications Generic Name Dose Route Start Last Admin Trade Name Olivia PRN Reason Stop Dose Admin Lorazepam Confirm 06/30/17 16:28 06/30/17 17:26 Ativan Administered 06/30/17 16:29 Not Given Dose 2 mg .ROUTE .STK-MED ONE Lorazepam Confirm 06/30/17 16:40 06/30/17 17:09 Ativan Administered 06/30/17 16:41 Not Given Dose 2 mg .ROUTE .STK-MED ONE Lorazepam 2 mg 06/30/17 16:29 06/30/17 16:29 Ativan IVPUSH 06/30/17 16:30 2 mg ONETIME ONE Administration Lorazepam 2 mg 06/30/17 16:39 06/30/17 16:39 Ativan IVPUSH 06/30/17 16:40 2 mg ONETIME ONE Administration Lorazepam 2 mg 06/30/17 18:58 06/30/17 19:05 Ativan IVPUSH 06/30/17 18:59 2 mg ONETIME ONE Administration - Re-Assessments/Exams Free Text/Narrative Re-Assessment/Exam: 06/30/17 19:20 Patient seizure type activity has slowed after second dose of Ativan 2 mg. I did discuss situation with Dr. Cee who couldn't be certain one where the other and offered to have the patient evaluated in [facility] emergency room. Shortly after this the patient had another episode that I witnessed she was talking before this and then developed a blank stare her eyes rolled back she developed about an 8 second episode of very fast for extremity clonic activity she was sleepy after this and took her a while to wake up she received a second 2 mg of Ativan I did check her eyes and her eyes were dilated but did respond to light. Prior to this last seizure case was discussed with Dr. Ayala ER physician at [facility] who is willing to accept the patient. Our urine specimen was accidentally discarded we'll try to obtain a second one for urinalysis and toxicology the patient had lab work done earlier this last morning this was not repeated. I did however get a head CT that showed no acute changes no abnormalities identified. The patient has been has a medial on his phone of the patient having a different type of activity where she is awake and having for extremity much slower muscle movement that may be involuntary this does not appear to me to be seizures the patient is awake during these episodes. But this is clearly much different than what she is demonstrated here in the emergency room. Departure - Departure Time of Disposition: 19:00 Disposition: DC/Tfer to [facility] 02 Clinical Impression: Seizure-like activity - Discharge Information Referrals: PCP,None [Primary Care Provider] - Forms: ED Department Discharge - My Orders Last 24 Hours: My Active Orders 06/30/17 16:43 Head wo Cont [CT] Stat 06/30/17 18:10 URINALYSIS W/MICROSCOPIC [UA W/MICROSCOPIC] [URIN] Stat 06/30/17 18:11 DRUG SCREEN, URINE [URCHEM] Stat - Assessment/Plan Last 24 Hours: My Active Orders 06/30/17 16:43 Head wo Cont [CT] Stat 06/30/17 18:10 URINALYSIS W/MICROSCOPIC [UA W/MICROSCOPIC] [URIN] Stat 06/30/17 18:11 DRUG SCREEN, URINE [URCHEM] Stat
--- NOTE | 2017-07-01 12:15 | CT ---
Head CT Technique: Multiple axial sections through the brain were obtained. Intravenous contrast was not utilized. Comparison: No previous head CT exam, previous MRI brain of 06/11/17 is available. Findings: Ventricles along with basal cisterns and sulci over the convexities appear within normal limits for the patient's age. No abnormal parenchymal densities are seen. No evidence of intracranial hemorrhage. No midline shift or mass effect is seen. Bone window settings were reviewed which show no acute calvarial abnormality. Visualized sinuses are clear. Impression: 1. No abnormality is identified on noncontrast head CT study. No significant change is seen from prior MRI brain. Diagnostic code #1 Agree with preliminary report issued by [facility] ([facility] preliminary report dictated on 06/30/17, 6:43 PM Central Time)
== END 2017-06-30 20:00 ==
LOC: JD.ED 16:16
DX: R29.818 Other symptoms and signs involving the nervous system (principal); E03.9 Hypothyroidism, unspecified; M79.7 Fibromyalgia; K90.0 Celiac disease; R53.81 Other malaise; R53.82 Chronic fatigue, unspecified; Z88.5 Allergy status to narcotic agent; Z91.011 Allergy to milk products; Z88.1 Allergy status to other antibiotic agents; Z91.041 Radiographic dye allergy status; Z88.6 Allergy status to analgesic agent; Z79.899 Other long term (current) drug therapy; Z90.49 Acquired absence of other specified parts of digestive tract
CPT/HCPCS: 36415; 70450; 80053; 80306; 81001; 83735; 84146; 84443; 84703; 85025; 96361; 96365; 96366; 96368; 96374; 96375; 96376; 99285; J2060; J3411; J7042; J3475

== ENCOUNTER 2017-11-06 05:51 | Emergency (ER) | payer BC, SELFPAY ==
[2017-11-06] MEDS ORDERED: Sodium Chloride 0.9% 1,000 ML IV SCH ×2 (06:30→07:30)
--- NOTE | 2017-11-06 06:30 | EDM.PDOC ---
ED HPI GENERAL MEDICAL PROBLEM - General Chief Complaint: Gastrointestinal Problem Stated Complaint: DEHYDRATED Time Seen by Provider: 11/06/17 06:18 Source of Information: Reports: Patient, RN Notes Reviewed - History of Present Illness INITIAL COMMENTS - FREE TEXT/NARRATIVE: 27-year-old female comes in with symptoms of diarrhea, possible dehydration. She does have history of gluten sensitivity, probable celiac disease. She states she has had quite severe diarrhea for the past 3 or 4 days and intermittently before that. She has had some abdominal pain and cramping but none at this time. She's had nausea but no vomiting. She states when she does drink water then she will have increased abdominal pain and cramping. No chest pain or difficulty breathing. Her mouth does feel dry. Generalized Pain Score (Numeric/FACES): 5 - Related Data Allergies Allergy/AdvReac Type Severity Reaction Status Date / Time albuterol Allergy Hyperactivi Verified 11/06/17 06:10 ty cephalexin Allergy Other Verified 11/06/17 06:10 codeine Allergy Rash Verified 11/06/17 06:10 Dairy Products Allergy Diarrhea Verified 11/06/17 06:10 gluten Allergy Other Verified 11/06/17 06:10 hydrocodone Allergy Nausea Verified 11/06/17 06:10 hydromorphone [From Dilaudid] Allergy Burning Verified 11/06/17 06:10 Iodinated Contrast- Oral and Allergy Hives Verified 11/06/17 06:10 IV Dye [Iodinated Contrast Media - IV Dye] morphine Allergy Burning Verified 11/06/17 06:10 soy Allergy Abdominal Verified 11/06/17 06:10 Pain Sulfa (Sulfonamide Allergy Confusion Verified 11/06/17 06:10 Antibiotics) tramadol Allergy Confusion Verified 11/06/17 06:10 Home Meds: Home Meds Cholecalciferol (Vitamin D3) [Vitamin D] 7,000 intnl unit PO DAILY 04/23/14 [ History] Thyroid,Pork [Nature-Throid] 32.5 mg PO DAILY 05/13/15 [History] Cetirizine [ZyrTEC] 10 mg PO DAILY 11/06/17 [History] Cyanocobalamin (Vitamin B12) [Vitamin B12] 10,000 mcg SUBCUT MOWEFR 11/06/17 [ History] Fexofenadine [Libertad] 180 mg PO DAILY 11/06/17 [History] Methylfolate 10 mg PO DAILY 11/06/17 [History] Midodrine 2.5 mg PO DAILY 11/06/17 [History] Naltrexone 50 mg PO DAILY 11/06/17 [History] Neuroprotek 1 tab PO 6XDAY 11/06/17 [History] Propranolol [Inderal] 5 mg PO BID 11/06/17 [History] Ranitidine HCl [Zantac] 150 mg PO DAILY 11/06/17 [History] Past Medical History Gastrointestinal History: Reports: Celiac Disease Musculoskeletal History: Reports: Fibromyalgia Endocrine/Metabolic History: Reports: Hypothyroidism Hematologic History: Reports: Other (See Below) Other Hematologic History: EDS, mecasts syndrome, small fiber neuropathy - Past Surgical History GI Surgical History: Reports: Cholecystectomy Social & Family History - Family History Family Medical History: Noncontributory - Tobacco Use Smoking Status *Q: Never Smoker Second Hand Smoke Exposure: No - Caffeine Use Caffeine Use: Reports: None - Recreational Drug Use Recreational Drug Use: No - Living Situation & Occupation Living situation: Reports: Single Occupation: Employed ED ROS GENERAL - Review of Systems Review Of Systems: See Below Constitutional: Denies: Fever, Chills HEENT: Reports: Other. Denies: Throat Pain Respiratory: Denies: Shortness of Breath Cardiovascular: Denies: Chest Pain (Multiple stride) GI/Abdominal: Reports: Abdominal Pain (Intermittent), Diarrhea, Nausea. Denies : Vomiting Skin: Reports: No Symptoms Neurological: Reports: Dizziness ED EXAM, GI/ABD - Physical Exam Exam: See Below General Appearance: Alert, No Apparent Distress Throat/Mouth: Other (Oral mucosa is moist) Neck: Supple, Full Range of Motion Respiratory/Chest: No Respiratory Distress, Lungs Clear, Normal Breath Sounds Cardiovascular: Regular Rate, Rhythm GI/Abdominal Exam: Soft, Non-Tender. No: Guarding, Rebound Extremities: Normal Inspection, Normal Range of Motion Neurological: Alert, No Motor/Sensory Deficits Skin Exam: Warm, Dry, Normal Color Course - Vital Signs Last Recorded V/S: Last Vital Signs Temp 98.2 F 11/06/17 06:06 Pulse 84 11/06/17 06:06 Resp 18 11/06/17 06:06 BP 130/79 11/06/17 06:06 Pulse Ox 100 11/06/17 06:06 - Orders/Labs/Meds Orders: Active Orders 24 hr Category Date Time Status Sodium Chloride 0.9% [Normal Saline] 1,000 ml Med 11/06/17 06:30 Active IV ONETIME Sodium Chloride 0.9% [Normal Saline] 1,000 ml Med 11/06/17 07:30 Active IV ONETIME Medication Orders Sodium Chloride (Normal Saline) 1,000 mls @ 999 mls/hr IV ONETIME BEL Last Admin: 11/06/17 06:35 Dose: 999 mls/hr Sodium Chloride (Normal Saline) 1,000 mls @ 999 mls/hr IV ONETIME BEL Last Admin: 11/06/17 07:35 Dose: 999 mls/hr Meds: Medications Generic Name Dose Route Start Last Admin Trade Name Olivia PRN Reason Stop Dose Admin Sodium Chloride 1,000 mls @ 999 mls/hr 11/06/17 06:30 11/06/17 06:35 Normal Saline IV 999 mls/hr ONETIME BEL Administration Sodium Chloride 1,000 mls @ 999 mls/hr 11/06/17 07:30 11/06/17 07:35 Normal Saline IV 999 mls/hr ONETIME BEL Administration - Re-Assessments/Exams Free Text/Narrative Re-Assessment/Exam: 11/06/17 09:09 Patient still did not feel need to void after the first liter normal saline, mouth was still dry,blood pressure still somewhat low so did give a second liter of saline. She does feel much better. Discharge instructions as documented Departure - Departure Time of Disposition: 09:03 Disposition: Home, Self-Care 01 Condition: Fair Clinical Impression: Dehydration Diarrhea Qualifiers: Diarrhea type: unspecified type Qualified Code(s): R19.7 - Diarrhea, unspecified - Discharge Information Referrals: PCP,None [Primary Care Provider] - Forms: ED Department Discharge Additional Instructions: Clear liquids, small amounts at a time as tolerated, then carefully advanced diet as tolerated.. Follow-up clinic as needed if not much better within 1-2 days. Return to ED as needed - My Orders Last 24 Hours: My Active Orders 11/06/17 06:30 Sodium Chloride 0.9% [Normal Saline] 1,000 ml IV ONETIME 11/06/17 07:30 Sodium Chloride 0.9% [Normal Saline] 1,000 ml IV ONETIME - Assessment/Plan Last 24 Hours: My Active Orders 11/06/17 06:30 Sodium Chloride 0.9% [Normal Saline] 1,000 ml IV ONETIME 11/06/17 07:30 Sodium Chloride 0.9% [Normal Saline] 1,000 ml IV ONETIME
[2017-11-06 09:19] VITALS: BP 107/71
== END 2017-11-06 09:13 | disposition home or self-care (01) ==
LOC: JD.ED 05:51
DX: E86.0 Dehydration (principal); R19.7 Diarrhea, unspecified; Z88.1 Allergy status to other antibiotic agents; Z91.011 Allergy to milk products; Z88.5 Allergy status to narcotic agent; Z91.041 Radiographic dye allergy status; Z88.2 Allergy status to sulfonamides; Z79.899 Other long term (current) drug therapy
CPT/HCPCS: 96360; 96361; 99284; J7040; 99283

== ENCOUNTER 2017-12-20 10:12 | Emergency (ER) | payer BC, SELFPAY ==
[2017-12-20 10:25] VITALS: BP 134/84
[2017-12-20] MEDS ORDERED: Sodium Chloride 0.9% 10 ML Syringe FLUSH PRN (10:40)
[2017-12-20] MEDS ORDERED: Sodium Chloride 0.9% 1,000 ML IV STA (10:40)
[2017-12-20] MEDS ORDERED: Ondansetron 4 MG/2 ML SDV IVPUSH ONE ×2 (10:40→13:10)
--- NOTE | 2017-12-20 12:47 | CT ---
CT abdomen and pelvis (without contrast) Technique: Multiple axial sections were obtained from above the dome of the diaphragm inferiorly through the pubic symphysis. Intravenous and oral contrast not utilized which diminishes details of the study. Comparison: Previous non-contrast CT exam of 09/19/16. Findings: Left kidney shows a minimal calcification measuring about 2 mm. Uncertain if this represents calcification within the renal parenchyma or represents a nonobstructing stone. No ureteral dilatation or ureteral stone is seen. Visualized lung bases shows nothing acute. Noncontrast appearance of the liver shows no focal abnormality. Spleen appears within normal limits. Adrenal glands show no nodule. Pancreas appears within normal limits. Surgical clips are seen from prior cholecystectomy. Aorta shows no aneurysmal dilatation. No retroperitoneal adenopathy or mesenteric abnormalities are seen. No pelvic mass or adenopathy is seen. Cyst is identified within the right ovary measuring 3.3 cm in size. No free fluid or inflammatory change is seen. Bone window settings were reviewed which appear within normal limits for the patient's age. Impression: 1. 3.3 cm cyst within the right ovary. This is most likely physiologic. 2. Small calcification within the left kidney measuring about 2 mm. This is stable from prior CT exam and uncertain if this represents minimal nephrolithiasis or represents small nonobstructing stone. 3. No ureteral dilatation or ureteral stone is seen. 4. Other incidental findings as noted above. Nothing acute is definitely appreciated on noncontrast CT study of the abdomen and pelvis. Diagnostic code #2
[2017-12-20] MEDS: fentaNYL 100 MCG/2 ML SDV IVPUSH ONE ×2 (13:56→13:57)
--- NOTE | 2017-12-20 14:23 | EDM.PDOC ---
ED HPI GENERAL MEDICAL PROBLEM - General Chief Complaint: Genitourinary Problem Stated Complaint: FLANK PAIN Time Seen by Provider: 12/20/17 10:31 Source of Information: Reports: Patient History Limitations: Reports: No Limitations - History of Present Illness INITIAL COMMENTS - FREE TEXT/NARRATIVE: The patient presents with low back pain, nausea and upper abdominal pin. This has been going on since Saturday. She did not inure her back. She no numbness. She does have generalized weakness. She has no fever or chills. She has no dysuria or hematuria. She has no history of kidney stones. She has no gallbladder. She she has a complicated medical history with positional hypotension and some autoimmune disorders. She also has multiple allergies. Onset: Gradual Duration: Day(s): (3) Location: Reports: Abdomen, Back Quality: Reports: Ache Severity: Moderate Improves with: Reports: None Worsens with: Reports: None Associated Symptoms: Reports: Nausea/Vomiting. Denies: Confusion, Chest Pain, Cough, Fever/Chills, Headaches, Loss of Appetite, Shortness of Breath Bilateral Flank Pain Score (Numeric/FACES): 6 - Related Data Allergies Allergy/AdvReac Type Severity Reaction Status Date / Time albuterol Allergy Hyperactivi Verified 12/20/17 10:20 ty cephalexin Allergy Other Verified 12/20/17 10:20 codeine Allergy Rash Verified 12/20/17 10:20 Dairy Products Allergy Diarrhea Verified 12/20/17 10:20 gluten Allergy Other Verified 12/20/17 10:20 hydrocodone Allergy Nausea Verified 12/20/17 10:20 hydromorphone [From Dilaudid] Allergy Burning Verified 12/20/17 10:20 Iodinated Contrast- Oral and Allergy Hives Verified 12/20/17 10:20 IV Dye [Iodinated Contrast Media - IV Dye] lorazepam [From Ativan] Allergy Other Verified 12/20/17 10:21 morphine Allergy Burning Verified 12/20/17 10:20 soy Allergy Abdominal Verified 12/20/17 10:20 Pain Sulfa (Sulfonamide Allergy Confusion Verified 12/20/17 10:20 Antibiotics) tramadol Allergy Confusion Verified 12/20/17 10:20 morphine Allergy Anaphylactic Uncoded 12/20/17 10:21 Shock Home Meds: Home Meds Cholecalciferol (Vitamin D3) [Vitamin D] 7,000 intnl unit PO DAILY 04/23/14 [ History] Thyroid,Pork [Nature-Throid] 32.5 mg PO DAILY 05/13/15 [History] Cetirizine [ZyrTEC] 10 mg PO DAILY 11/06/17 [History] Cyanocobalamin (Vitamin B12) [Vitamin B12] 10,000 mcg SUBCUT MOWEFR 11/06/17 [ History] Fexofenadine [Libertad] 180 mg PO DAILY 11/06/17 [History] Methylfolate 10 mg PO DAILY 11/06/17 [History] Midodrine 2.5 mg PO DAILY 11/06/17 [History] Naltrexone 50 mg PO DAILY 11/06/17 [History] Neuroprotek 1 tab PO 6XDAY 11/06/17 [History] Propranolol [Inderal] 5 mg PO BID 11/06/17 [History] Ranitidine HCl [Zantac] 150 mg PO DAILY 11/06/17 [History] Ondansetron [Zofran ODT] 4 mg PO Q6H PRN #20 tab.dis 12/20/17 [Rx] Past Medical History Gastrointestinal History: Reports: Celiac Disease Musculoskeletal History: Reports: Fibromyalgia Neurological History: Reports: Seizure, Other (See Below) Other Neuro History: small fiber neuropathy; myalgic encephalo myelitis Endocrine/Metabolic History: Reports: Hypothyroidism Hematologic History: Reports: Other (See Below) Other Hematologic History: EDS, mecasts syndrome, small fiber neuropathy - Past Surgical History GI Surgical History: Reports: Cholecystectomy Social & Family History - Family History Family Medical History: Noncontributory - Tobacco Use Smoking Status *Q: Never Smoker Second Hand Smoke Exposure: No - Caffeine Use Caffeine Use: Reports: None - Recreational Drug Use Recreational Drug Use: No - Living Situation & Occupation Living situation: Reports: Single Occupation: Employed ED ROS GENERAL - Review of Systems Review Of Systems: See Below Constitutional: Reports: No Symptoms HEENT: Reports: No Symptoms Respiratory: Reports: No Symptoms Cardiovascular: Reports: No Symptoms Endocrine: Reports: No Symptoms GI/Abdominal: Reports: Abdominal Pain, Nausea. Denies: Diarrhea, Vomiting : Reports: No Symptoms Musculoskeletal: Reports: Back Pain ED EXAM, GI/ABD - Physical Exam Exam: See Below Exam Limited By: No Limitations General Appearance: Alert, No Apparent Distress Ears: Normal External Exam Nose: Normal Inspection Head: Atraumatic, Normocephalic Neck: Normal Inspection Respiratory/Chest: No Respiratory Distress, Lungs Clear, Normal Breath Sounds Cardiovascular: Regular Rate, Rhythm, No Edema, No Murmur GI/Abdominal Exam: Soft, No Organomegaly, No Mass, Tender (Mild upper abdominal pain) Back Exam: Other (Pain upon palpation to the lower back) Extremities: Normal Inspection Course - Vital Signs Last Recorded V/S: Last Vital Signs Temp 98.1 F 12/20/17 10:21 Pulse 110 H 12/20/17 10:21 Resp 19 12/20/17 10:21 BP 134/84 12/20/17 10:21 Pulse Ox 100 12/20/17 10:21 - Orders/Labs/Meds Orders: Active Orders 24 hr Category Date Time Status Peripheral IV Care [RC] . DIRECTED Care 12/20/17 10:40 Active Sodium Chloride 0.9% [Saline Flush] Med 12/20/17 10:40 Active 10 ml FLUSH ASDIRECTED PRN ED Antiemetic Medication Reflex [OM.PC] Stat Oth 12/20/17 10:40 Ordered Peripheral IV Insertion Adult [OM.PC] Stat Oth 12/20/17 10:40 Ordered Medication Orders Sodium Chloride (Saline Flush) 10 ml FLUSH ASDIRECTED PRN PRN Reason: Keep Vein Open Last Admin: 12/20/17 11:20 Dose: 10 ml Labs: Laboratory Tests 12/20/17 12/20/17 12/20/17 Range/Units 11:15 11:15 11:15 WBC 6.76 (3.98-10.04) K/mm3 RBC 4.64 (3.98-5.22) M/mm3 Hgb 13.7 (11.2-15.7) gm/L Hct 39.2 (34.1-44.9) % MCV 84.5 (79.4-94.8) fl MCH 29.5 (25.6-32.2) pg MCHC 34.9 (32.2-35.5) g/dl RDW Std Deviation 37.3 (36.4-46.3) fL Plt Count 229 (182-369) K/mm3 MPV 10.4 (9.4-12.3) fl Neut % (Auto) 66.3 (34.0-71.1) % Lymph % (Auto) 22.9 (19.3-51.7) % [place] % (Auto) 9.5 (4.7-12.5) % Eos % (Auto) 0.9 (0.7-5.8) Baso % (Auto) 0.1 (0.1-1.2) % Neut # (Auto) 4.48 (1.56-6.13) K/mm3 Lymph # (Auto) 1.55 (1.18-3.74) K/mm3 [place] # (Auto) 0.64 H (0.24-0.36) K/mm3 Eos # (Auto) 0.06 (0.04-0.36) K/mm3 Baso # (Auto) 0.01 (0.01-0.08) K/mm3 ESR (0-20) mm/hr Sodium 140 (136-145) mEq/L Potassium 3.6 (3.5-5.1) mEq/L Chloride 104 (98-107) mEq/L Carbon Dioxide 25 (21-32) mEq/L Anion Gap 14.6 (5-15) BUN 8 (7-18) mg/dL Creatinine 0.9 (0.55-1.02) mg/dL Est Cr Clr Drug Dosing 88.68 mL/min Estimated GFR (MDRD) > 60 (>60) mL/min BUN/Creatinine Ratio 8.9 L (14-18) Glucose 89 (74-106) mg/dL Calcium 9.1 (8.5-10.1) mg/dL Total Bilirubin 1.0 (0.2-1.0) mg/dL AST 24 (15-37) U/L ALT 31 (14-59) U/L Alkaline Phosphatase 102 (46-116) U/L C-Reactive Protein < 0.2 (<1.0) mg/dL Total Protein 7.4 (6.4-8.2) g/dl Albumin 3.7 (3.4-5.0) g/dl Globulin 3.7 gm/dL Albumin/Globulin Ratio 1.0 (1-2) Lipase 105 (73-393) U/L HCG, Qual Negative (NEGATIVE) Urine Color (Yellow) Urine Appearance (Clear) Urine pH (5.0-8.0) Ur Specific [place] (1.005-1.030) Urine Protein (Negative) Urine Glucose (UA) (Negative) Urine Ketones (Negative) Urine Occult Blood (Negative) Urine Nitrite (Negative) Urine Bilirubin (Negative) Urine Urobilinogen (0.2-1.0) Ur Leukocyte Esterase (Negative) Urine RBC (0-5) /hpf Urine WBC (0-5) /hpf Ur Epithelial Cells (0-5) /hpf Urine Bacteria (FEW) /hpf Urine Mucus (FEW) /hpf 12/20/17 12/20/17 Range/Units 11:15 11:58 WBC (3.98-10.04) K/mm3 RBC (3.98-5.22) M/mm3 Hgb (11.2-15.7) gm/L Hct (34.1-44.9) % MCV (79.4-94.8) fl MCH (25.6-32.2) pg MCHC (32.2-35.5) g/dl RDW Std Deviation (36.4-46.3) fL Plt Count (182-369) K/mm3 MPV (9.4-12.3) fl Neut % (Auto) (34.0-71.1) % Lymph % (Auto) (19.3-51.7) % [place] % (Auto) (4.7-12.5) % Eos % (Auto) (0.7-5.8) Baso % (Auto) (0.1-1.2) % Neut # (Auto) (1.56-6.13) K/mm3 Lymph # (Auto) (1.18-3.74) K/mm3 [place] # (Auto) (0.24-0.36) K/mm3 Eos # (Auto) (0.04-0.36) K/mm3 Baso # (Auto) (0.01-0.08) K/mm3 ESR 22 H (0-20) mm/hr Sodium (136-145) mEq/L Potassium (3.5-5.1) mEq/L Chloride (98-107) mEq/L Carbon Dioxide (21-32) mEq/L Anion Gap (5-15) BUN (7-18) mg/dL Creatinine (0.55-1.02) mg/dL Est Cr Clr Drug Dosing mL/min Estimated GFR (MDRD) (>60) mL/min BUN/Creatinine Ratio (14-18) Glucose (74-106) mg/dL Calcium (8.5-10.1) mg/dL Total Bilirubin (0.2-1.0) mg/dL AST (15-37) U/L ALT (14-59) U/L Alkaline Phosphatase (46-116) U/L C-Reactive Protein (<1.0) mg/dL Total Protein (6.4-8.2) g/dl Albumin (3.4-5.0) g/dl Globulin gm/dL Albumin/Globulin Ratio (1-2) Lipase (73-393) U/L HCG, Qual (NEGATIVE) Urine Color Yellow (Yellow) Urine Appearance Clear (Clear) Urine pH 7.5 (5.0-8.0) Ur Specific [place] 1.020 (1.005-1.030) Urine Protein Negative (Negative) Urine Glucose (UA) Negative (Negative) Urine Ketones Negative (Negative) Urine Occult Blood Negative (Negative) Urine Nitrite Negative (Negative) Urine Bilirubin Negative (Negative) Urine Urobilinogen 0.2 (0.2-1.0) Ur Leukocyte Esterase Trace H (Negative) Urine RBC 0-5 (0-5) /hpf Urine WBC 0-5 (0-5) /hpf Ur Epithelial Cells 5-10 H (0-5) /hpf Urine Bacteria Few (FEW) /hpf Urine Mucus Few (FEW) /hpf Meds: Medications Generic Name Dose Route Start Last Admin Trade Name Olivia PRN Reason Stop Dose Admin Sodium Chloride 10 ml 12/20/17 10:40 12/20/17 11:20 Saline Flush FLUSH 10 ml ASDIRECTED PRN Administration Keep Vein Open Discontinued Medications Generic Name Dose Route Start Last Admin Trade Name Olivia PRN Reason Stop Dose Admin Fentanyl 50 mcg 12/20/17 13:10 12/20/17 13:57 Sublimaze IVPUSH 12/20/17 13:11 50 mcg ONETIME ONE Administration Sodium Chloride 1,000 mls @ 1,000 mls/hr 12/20/17 10:40 12/20/17 11:12 Normal Saline IV 12/20/17 11:39 1,000 mls/hr .BOLUS STA Administration Ondansetron HCl 4 mg 12/20/17 10:40 12/20/17 11:19 Zofran IVPUSH 12/20/17 10:41 4 mg ONETIME ONE Administration Ondansetron HCl 4 mg 12/20/17 13:10 12/20/17 13:46 Zofran IVPUSH 12/20/17 13:11 4 mg ONETIME ONE Administration - Re-Assessments/Exams Free Text/Narrative Re-Assessment/Exam: 12/20/17 14:27 I ordered an IV NS, labs, UA and a CT of her abdomen and pelvis. I also ordered some zofran 4mg IV. Her CBC and CMP look good. Her CRP was negative. Her ESR was 22. Her UA shows no UTI. Her CT shows a 3.3cm cyst within the right ovary. This is most likely physiologic. Small calcification within the left kidney measuring about 2mm. This is stable from prior CT exam and uncertain if this represents minimal nephrolithiasis or represents small nonobstructing stone. NO ureteral dilatation or ureteral stone is seen. Nothing acute is seen. She still had pain and nausea. I ordered zofran and fentanyl 25mcg IV. That made her feel better and she was sleeping when I checked on her again. This appears to be musculoskeletal pain. I will discharge her home. Departure - Departure Time of Disposition: 14:35 Disposition: Home, Self-Care 01 Condition: Good Clinical Impression: Nausea Low back pain Qualifiers: Chronicity: acute Back pain laterality: bilateral Sciatica presence: without sciatica Qualified Code(s): M54.5 - Low back pain Abdominal pain Qualifiers: Abdominal location: right upper quadrant Qualified Code(s): R10.11 - Right upper quadrant pain - Discharge Information Prescriptions: Ondansetron [Zofran ODT] 4 mg PO Q6H PRN #20 tab.dis PRN Reason: Nausea\vomiting Referrals: Soheila Cooper MD [Primary Care Provider] - 1 Week Forms: ED Department Discharge Additional Instructions: Drink plenty of fluids. Take the zofran every 6 hours as needed for nausea or vomiting. Please return if you are worse such as more pain, nausea, vomiting or if you have any other concerns. - My Orders Last 24 Hours: My Active Orders 12/20/17 10:40 Peripheral IV Care [RC] . DIRECTED Sodium Chloride 0.9% [Saline Flush] 10 ml FLUSH ASDIRECTED PRN ED Antiemetic Medication Reflex [OM.PC] Stat Peripheral IV Insertion Adult [OM.PC] Stat - Assessment/Plan Last 24 Hours: My Active Orders 12/20/17 10:40 Peripheral IV Care [RC] . DIRECTED Sodium Chloride 0.9% [Saline Flush] 10 ml FLUSH ASDIRECTED PRN ED Antiemetic Medication Reflex [OM.PC] Stat Peripheral IV Insertion Adult [OM.PC] Stat
== END 2017-12-20 14:50 | disposition home or self-care (01) ==
LOC: JD.ED 10:12
DX: M54.5 Low back pain (principal); R10.11 Right upper quadrant pain; R11.0 Nausea; E03.9 Hypothyroidism, unspecified; Z79.899 Other long term (current) drug therapy; Z88.5 Allergy status to narcotic agent; Z88.2 Allergy status to sulfonamides; Z88.8 Allergy status to other drugs, medicaments and biological substances; Z91.041 Radiographic dye allergy status; Z91.011 Allergy to milk products; Z88.1 Allergy status to other antibiotic agents; Z90.49 Acquired absence of other specified parts of digestive tract
CPT/HCPCS: 36415; 74176; 80053; 81001; 83690; 84703; 85025; 85652; 86140; 96361; 96374; 96375; 96376; 99284; J2405; J3010; J7040; J7050

== ENCOUNTER 2018-02-02 19:18 | Emergency (ER) | payer BC ==
[2018-02-02 19:32] VITALS: BP 130/75
--- NOTE | 2018-02-02 19:33 | EDM.PDOC ---
ED HPI GENERAL MEDICAL PROBLEM - General Chief Complaint: Neurological Problem Stated Complaint: [facility] Time Seen by Provider: 02/02/18 19:20 Source of Information: Reports: Patient, EMS Notes Reviewed, Family () History Limitations: Reports: Physical Impairment - History of Present Illness INITIAL COMMENTS - FREE TEXT/NARRATIVE: The patient is brought to the ED per EMS with report of the patient having repeated full-body seizures lasting about 10 seconds. No postictal activity, and she was hemodynamically stable. I was called to the patient's room emergently over concern of recurrent seizures. I found the patient on the gurney having what was CLEARLY a pseudoseizure, including hip thrusts. Her eyes were rolled back. There wasn't so much tonic-clonic activity, as there was bouncing on the gurney. No tongue biting or loss of bowel/bladder continence. The episode lasted perhaps 10 to 15 seconds, after which the patient was lucid. 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 He stated that the patient had been seen by a Neurologist, who performed an EEG, which did NOT demonstrate epileptiform activity. The patient was not placed on antiepileptic medication. When asked if the patient was diagnosed with pseudoseizures, the patient's stated that the patient was diagnosed with nonepileptic seizures, which he insisted were real seizures. He stated that the patient became dehydrated today, which, because of her mast cell activation syndrome, causes her to have these repeated seizures. He states the patient has had normal oral intake recently, but has had watery diarrhea for the past 2 days. The patient volunteered that she has had nausea, but no emesis. No recent fever. When she spoke, she spoke slowly, in a whisper. She did not want to answer questions posed to her, rather, referred me to prior medical records. In addition to mast cell activation syndrome which causes nonepileptic seizures , the patient also reports a history of postural tachycardia syndrome, celiac disease, small fiber neuropathy, myalgic encephalomyelitis, Raimundo-Danlos syndrome, and others. The patient's reported that when the patient has had episodes like this in the past, all she needs is IV fluid and IV (not oral) Benadryl. The patient's PCP is Dr. Soheila Cooper, but she also sees Dr. Liang, an [employer] in [place]. - Related Data Allergies Allergy/AdvReac Type Severity Reaction Status Date / Time cephalexin Allergy Other Verified 12/20/17 10:20 codeine Allergy Rash Verified 12/20/17 10:20 gluten Allergy Other Verified 12/20/17 10:20 hydromorphone [From Dilaudid] Allergy Burning Verified 12/20/17 10:20 Iodinated Contrast- Oral and Allergy Hives Verified 12/20/17 10:20 IV Dye [Iodinated Contrast Media - IV Dye] lorazepam [From Ativan] Allergy Other Verified 12/20/17 10:21 morphine Allergy Burning Verified 12/20/17 10:20 albuterol AdvReac Hyperactivi Verified 12/24/17 11:34 ty Dairy Products AdvReac Diarrhea Verified 12/24/17 11:34 hydrocodone AdvReac Nausea Verified 12/24/17 11:34 soy AdvReac Abdominal Verified 12/24/17 11:34 Pain Sulfa (Sulfonamide AdvReac Confusion Verified 12/24/17 11:34 Antibiotics) tramadol AdvReac Confusion Verified 12/24/17 11:34 morphine Allergy Anaphylactic Uncoded 12/20/17 10:21 Shock Home Meds: Home Meds Cholecalciferol (Vitamin D3) [Vitamin D] 7,000 intnl unit PO DAILY 04/23/14 [ History] Thyroid,Pork [Nature-Throid] 32.5 mg PO DAILY 05/13/15 [History] Cetirizine [ZyrTEC] 10 mg PO DAILY 11/06/17 [History] Cyanocobalamin (Vitamin B12) [Vitamin B12] 10,000 mcg SUBCUT MOWEFR 11/06/17 [ History] Fexofenadine [Libertad] 180 mg PO DAILY 11/06/17 [History] Methylfolate 10 mg PO DAILY 11/06/17 [History] Midodrine 2.5 mg PO DAILY 11/06/17 [History] Naltrexone 50 mg PO DAILY 11/06/17 [History] Neuroprotek 1 tab PO 6XDAY 11/06/17 [History] Propranolol [Inderal] 5 mg PO BID 11/06/17 [History] Ranitidine HCl [Zantac] 150 mg PO DAILY 11/06/17 [History] Ondansetron [Zofran ODT] 4 mg PO Q6H PRN #20 tab.dis 12/20/17 [Rx] Past Medical History Gastrointestinal History: Reports: Celiac Disease Musculoskeletal History: Reports: Other (See Below) (claims to have Raimundo- Danlos syndrome) Neurological History: Reports: Other (See Below) (claims to have "small fiber neuropathy", and myalgic encephalomyelitis) Psychiatric History: Reports: Other (See Below) (Fibromyalgia. Pseudoseizures.) Endocrine/Metabolic History: Reports: Hypothyroidism, Obesity/BMI 30+ Hematologic History: Reports: Other (See Below) (claims to have "Mecasts syndrome") - Past Surgical History GI Surgical History: Reports: Cholecystectomy Social & Family History - Family History Family Medical History: Noncontributory - Tobacco Use Smoking Status *Q: Never Smoker Second Hand Smoke Exposure: No - Caffeine Use Caffeine Use: Reports: None - Alcohol Use Alcohol Use History: No - Recreational Drug Use Recreational Drug Use: No - Living Situation & Occupation Living situation: Reports: , with Spouse Occupation: Unemployed ED ROS GENERAL - Review of Systems Review Of Systems: ROS reveals no pertinent complaints other than HPI. ED EXAM, GENERAL - Physical Exam Exam: See Below Exam Limited By: Uncooperative (Patient stated "don't touch me" because it can precipitate her "seizures") General Appearance: Alert, WD/WN Eye Exam: Bilateral Eye: Normal Inspection Ears: Normal External Exam, Hearing Grossly Normal Nose: Normal Inspection, No Blood Throat/Mouth: Normal Inspection, Normal Lips, No Airway Compromise Head: Atraumatic, Normocephalic Neck: Normal Inspection Respiratory/Chest: No Respiratory Distress, No Accessory Muscle Use GI/Abdominal: Other (Obese) Extremities: Normal Inspection, Normal Range of Motion Neurological: Alert Skin Exam: Dry, Intact, Normal Color, No Rash Course - Vital Signs Last Recorded V/S: Last Vital Signs Temp 36.8 C 02/02/18 19:22 Pulse 106 H 02/02/18 19:22 Resp 18 02/02/18 19:22 BP 130/75 02/02/18 19:22 Pulse Ox 100 02/02/18 19:22 - Orders/Labs/Meds Labs: Laboratory Tests 02/02/18 02/02/18 Range/Units 20:05 20:05 WBC 7.09 (3.98-10.04) K/mm3 RBC 4.47 (3.98-5.22) M/mm3 Hgb 13.2 (11.2-15.7) gm/L Hct 38.1 (34.1-44.9) % MCV 85.2 (79.4-94.8) fl MCH 29.5 (25.6-32.2) pg MCHC 34.6 (32.2-35.5) g/dl RDW Std Deviation 38.6 (36.4-46.3) fL Plt Count 222 (182-369) K/mm3 MPV 10.5 (9.4-12.3) fl Neutrophils % (Manual) 57 (40-60) % Band Neutrophils % 0 (0-10) % Lymphocytes % (Manual) 27 (20-40) % Atypical Lymphs % 0 % Monocytes % (Manual) 15 H (2-10) % Eosinophils % (Manual) 1 (0.7-5.8) % Basophils % (Manual) 0 L (0.1-1.2) Platelet Estimate Adequate Plt Morphology Comment Normal RBC Morph Comment Normal Sodium 140 (136-145) mEq/L Potassium 3.7 (3.5-5.1) mEq/L Chloride 105 (98-107) mEq/L Carbon Dioxide 24 (21-32) mEq/L Anion Gap 14.7 (5-15) BUN 12 (7-18) mg/dL Creatinine 0.9 (0.55-1.02) mg/dL Est Cr Clr Drug Dosing 81.80 mL/min Estimated GFR (MDRD) > 60 (>60) mL/min BUN/Creatinine Ratio 13.3 L (14-18) Glucose 91 (74-106) mg/dL Calcium 8.9 (8.5-10.1) mg/dL Total Bilirubin 0.7 (0.2-1.0) mg/dL AST 21 (15-37) U/L ALT 28 (14-59) U/L Alkaline Phosphatase 98 (46-116) U/L Creatine Kinase 55 (26-192) U/L Total Protein 7.2 (6.4-8.2) g/dl Albumin 3.7 (3.4-5.0) g/dl Globulin 3.5 gm/dL Albumin/Globulin Ratio 1.1 (1-2) Meds: Medications Discontinued Medications Generic Name Dose Route Start Last Admin Trade Name Olivia PRN Reason Stop Dose Admin Diphenhydramine HCl 50 mg 02/02/18 19:47 02/02/18 19:57 Benadryl IVPUSH 02/02/18 19:48 50 mg ONETIME ONE Administration Sodium Chloride 1,000 mls @ 999 mls/hr 02/02/18 19:47 02/02/18 19:54 Normal Saline IV 02/02/18 20:47 999 mls/hr ONETIME ONE Administration - Re-Assessments/Exams Free Text/Narrative Re-Assessment/Exam: 02/02/18 19:37 The patient is displaying frequent pseudoseizures. My physical exam is quite limited, as the patient instructed that I not touch her, because it precipitates such activity. While mast cell activation syndrome can cause neuropsychiatric issues, such as headache, fatigue, lack of concentration, and mild cognitive problems, genuine seizures are not a known complication. Additionally, the patient's stated that the patient has been seen by a Neurologist and undergone an EEG, which was negative. Of additional concern, I am not convinced that the patient is in fact suffering from mast cell activation syndrome, as this virtually always causes dermatologic findings, including urticaria, angioedema, as well as pulmonary manifestations such as wheezing. We see none of that in this patient. The patient also reports a history of Raimundo-Danlos syndrome, however, this is questionable at best, as EMS reports that the patient's skin did not tent when she informed them that she was dehydrated. Further evaluation is not possible, as the patient does not want to be examined. I suspect that the patient is suffering from some psychiatric issues and has, in the past, had idiopathic urticaria which was subsequently interpreted as mast cell activation syndrome, when an IgE panel returned essentially negative. The patient's states that the patient gets relief if she is given IV fluid and Benadryl. I see no harm in ordering these. I ordered a CBC, CMP, and CPK, as the patient's states that she is dehydrated, which is triggering her seizures. If these are genuine seizures, we would expect to see leukocytosis and an elevated CPK, but in this case, I do not expect to find any abnormalities. 02/02/18 20:49 As anticipated, the patient's blood work is entirely normal. She does not have an elevated WBC count, hyperglycemia, or elevated CPK, all of which would be expected if the patient were suffering from repeated seizures. I believe the patient can safely be discharged home. Departure - Departure Time of Disposition: 21:00 Disposition: Home, Self-Care 01 Condition: Good Clinical Impression: Pseudoseizures - Discharge Information Referrals: Soheila Coopre MD [Primary Care Provider] - Forms: ED Department Discharge Additional Instructions: You were seen in the emergency room for repeated shaking episodes. Workup in the ER included a CBC, CMP, and CPK. Your entire workup was normal, and not consistent with recent seizures. You are not dehydrated. We recommend that you follow-up with your primary care physician, Dr. Cooper, or your [employer] in [place], Dr. Liang, as needed. If any other problems, please do not hesitate to return to the ER.
[2018-02-02] MEDS ORDERED: diphenhydrAMINE 50 MG/ML SDV IVPUSH ONE (19:47)
[2018-02-02] MEDS ORDERED: Sodium Chloride 0.9% 1,000 ML IV ONE (19:47)
== END 2018-02-02 21:50 | disposition home or self-care (01) ==
LOC: JD.ED 19:18
DX: R56.9 Unspecified convulsions (principal); Z88.5 Allergy status to narcotic agent; Z91.041 Radiographic dye allergy status; Z88.2 Allergy status to sulfonamides; Z91.011 Allergy to milk products; Z88.8 Allergy status to other drugs, medicaments and biological substances; Z91.09 Other allergy status, other than to drugs and biological substances; Z79.899 Other long term (current) drug therapy; E03.9 Hypothyroidism, unspecified
CPT/HCPCS: 36415; 80053; 82550; 85025; 96361; 96374; 99284; J1200; J7040

== ENCOUNTER 2018-04-24 15:30 | Emergency (ER) | payer BC, OTHER, SELFPAY ==
[2018-04-24] MEDS ORDERED: diphenhydrAMINE 50 MG/ML SDV IVPUSH ONE (16:40)
[2018-04-24] MEDS ORDERED: Sodium Chloride 0.9% 10 ML Syringe FLUSH PRN (16:40)
[2018-04-24] MEDS ORDERED: Sodium Chloride 0.9% 1,000 ML IV ONE ×2 (16:40→18:29)
--- NOTE | 2018-04-24 18:54 | EDM.PDOC ---
ED HPI GENERAL MEDICAL PROBLEM - General Chief Complaint: Headache Stated Complaint: dehydration Time Seen by Provider: 04/24/18 18:43 Source of Information: Reports: Patient, Family History Limitations: Reports: No Limitations - History of Present Illness INITIAL COMMENTS - FREE TEXT/NARRATIVE: 28 year old female presents for dehydration. Patient has a complex PMhx including celiac disease, POTs disease, SIBO, mass cell activation syndrome and fibromyalgia. Patient Reports she has been expereincing head aches the last few days. She has not taken anything as she does not like to take medications for pain. She reports today she felt nauseated earlier, no vomiting. Report 1 or 2 episodes of loose stools, no blood in her stools. She reports feeling dizzy and lightheaded but has not passed out. No ill contacts. Patient sees a specialist in [place] for her multiple complex medical conditions. She has with her a binder outlying her treatment plan should she be seen in the ER. Recommendations include IV fluids and IV benadryl. Headache Pain Score (Numeric/FACES): 5 - Related Data Allergies Allergy/AdvReac Type Severity Reaction Status Date / Time cephalexin Allergy Other Verified 12/20/17 10:20 codeine Allergy Rash Verified 12/20/17 10:20 gluten Allergy Other Verified 12/20/17 10:20 hydromorphone [From Dilaudid] Allergy Burning Verified 12/20/17 10:20 Iodinated Contrast- Oral and Allergy Hives Verified 12/20/17 10:20 IV Dye [Iodinated Contrast Media - IV Dye] lorazepam [From Ativan] Allergy Other Verified 12/20/17 10:21 morphine Allergy Burning Verified 12/20/17 10:20 albuterol AdvReac Hyperactivi Verified 12/24/17 11:34 ty Dairy Products AdvReac Diarrhea Verified 12/24/17 11:34 hydrocodone AdvReac Nausea Verified 12/24/17 11:34 soy AdvReac Abdominal Verified 12/24/17 11:34 Pain Sulfa (Sulfonamide AdvReac Confusion Verified 12/24/17 11:34 Antibiotics) tramadol AdvReac Confusion Verified 12/24/17 11:34 morphine Allergy Anaphylactic Uncoded 12/20/17 10:21 Shock Home Meds: Home Meds Cholecalciferol (Vitamin D3) [Vitamin D] 10,000 intnl unit PO DAILY 04/23/14 [ History] Thyroid,Pork [Nature-Throid] 32.5 mg PO DAILY 05/13/15 [History] Fexofenadine [Libertad] 180 mg PO DAILY 11/06/17 [History] Methylfolate 10 mg PO DAILY 11/06/17 [History] Midodrine 2.5 mg PO DAILY 11/06/17 [History] Naltrexone 5 mg PO DAILY 11/06/17 [History] Neuroprotek 1 tab PO 6X11/06/17 [History] Ranitidine HCl [Zantac] 150 mg PO DAILY 11/06/17 [History] Ondansetron [Zofran ODT] 4 mg PO Q6H PRN #20 tab.dis 12/20/17 [Rx] Ivabradine HCl [Corlanor] 2.5 mg PO DAILY 04/24/18 [History] Past Medical History HEENT History: Reports: Other (See Below) Other HEENT History: tinnitus Cardiovascular History: Reports: Other (See Below) Other Cardiovascular History: mahmood Respiratory History: Reports: SOB Gastrointestinal History: Reports: Celiac Disease Genitourinary History: Reports: Other (See Below) Other Genitourinary History: interstitial systitus Musculoskeletal History: Reports: Other (See Below) (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 Pseudoseizures.) Endocrine/Metabolic History: Reports: Hypothyroidism, Obesity/BMI 30+ Hematologic History: Reports: Other (See Below) (claims to have "Mecasts syndrome") Other Hematologic History: EDS, mecasts syndrome, small fiber neuropathy - Past Surgical History GI Surgical History: Reports: Cholecystectomy Social & Family History - Family History Family Medical History: Noncontributory - Tobacco Use Smoking Status *Q: Never Smoker - Caffeine Use Caffeine Use: Reports: Coffee - Recreational Drug Use Recreational Drug Use: No - Living Situation & Occupation Living situation: Reports: , with Spouse Occupation: Unemployed ED ROS GENERAL - Review of Systems Review Of Systems: See Below Constitutional: Reports: Malaise GI/Abdominal: Reports: Diarrhea, Nausea (earlier, none currently). Denies: Abdominal Pain, Black Stool, Vomiting Neurological: Reports: Dizziness, Headache. Denies: Syncope ED EXAM, GENERAL - Physical Exam Exam: See Below Exam Limited By: No Limitations General Appearance: Alert, WD/WN, No Apparent Distress, Other (wearing sunglasses and a mask) Throat/Mouth: Normal Voice, No Airway Compromise Respiratory/Chest: No Respiratory Distress, Lungs Clear, Normal Breath Sounds Cardiovascular: Normal Peripheral Pulses, Regular Rate, Rhythm, No Murmur GI/Abdominal: Normal Bowel Sounds, Soft, Non-Tender Neurological: Alert, Oriented, Normal Cognition Psychiatric: Normal Affect, Normal Mood Course - Vital Signs Last Recorded V/S: Last Vital Signs Temp 98.7 F 04/24/18 20:45 Pulse 82 04/24/18 20:45 Resp 20 04/24/18 20:45 BP 120/71 04/24/18 20:45 Pulse Ox 100 04/24/18 20:45 Orthostatic Blood Pressure [ 133/84 Standing] Orthostatic Blood Pressure [ 123/78 Sitting] Orthostatic Blood Pressure [ 121/71 Supine] - Orders/Labs/Meds Labs: Laboratory Tests 04/24/18 04/24/18 04/24/18 Range/Units 16:30 17:10 17:10 WBC 6.42 (3.98-10.04) K/mm3 RBC 4.55 (3.98-5.22) M/mm3 Hgb 13.5 (11.2-15.7) gm/L Hct 39.5 (34.1-44.9) % MCV 86.8 (79.4-94.8) fl MCH 29.7 (25.6-32.2) pg MCHC 34.2 (32.2-35.5) g/dl RDW Std Deviation 38.8 (36.4-46.3) fL Plt Count 229 (182-369) K/mm3 MPV 10.5 (9.4-12.3) fl Neut % (Auto) 66.5 (34.0-71.1) % Lymph % (Auto) 21.2 (19.3-51.7) % [place] % (Auto) 9.8 (4.7-12.5) % Eos % (Auto) 2.2 (0.7-5.8) Baso % (Auto) 0.3 (0.1-1.2) % Neut # (Auto) 4.27 (1.56-6.13) K/mm3 Lymph # (Auto) 1.36 (1.18-3.74) K/mm3 [place] # (Auto) 0.63 H (0.24-0.36) K/mm3 Eos # (Auto) 0.14 (0.04-0.36) K/mm3 Baso # (Auto) 0.02 (0.01-0.08) K/mm3 Sodium 140 (136-145) mEq/L Potassium 3.9 (3.5-5.1) mEq/L Chloride 104 (98-107) mEq/L Carbon Dioxide 26 (21-32) mEq/L Anion Gap 13.9 (5-15) BUN 10 (7-18) mg/dL Creatinine 1.0 (0.55-1.02) mg/dL Est Cr Clr Drug Dosing 79.11 mL/min Estimated GFR (MDRD) > 60 (>60) mL/min BUN/Creatinine Ratio 10.0 L (14-18) Glucose 94 (74-106) mg/dL Calcium 9.2 (8.5-10.1) mg/dL Total Bilirubin 0.7 (0.2-1.0) mg/dL AST 20 (15-37) U/L ALT 26 (14-59) U/L Alkaline Phosphatase 108 (46-116) U/L Total Protein 7.8 (6.4-8.2) g/dl Albumin 3.9 (3.4-5.0) g/dl Globulin 3.9 gm/dL Albumin/Globulin Ratio 1.0 (1-2) Urine Color Yellow (Yellow) Urine Appearance Clear (Clear) Urine pH 7.0 (5.0-8.0) Ur Specific [place] 1.015 (1.005-1.030) Urine Protein Negative (Negative) Urine Glucose (UA) Negative (Negative) Urine Ketones Negative (Negative) Urine Occult Blood Negative (Negative) Urine Nitrite Negative (Negative) Urine Bilirubin Negative (Negative) Urine Urobilinogen 0.2 (0.2-1.0) Ur Leukocyte Esterase Negative (Negative) Urine RBC Not seen (0-5) /hpf Urine WBC 0-5 (0-5) /hpf Ur Epithelial Cells 0-5 (0-5) /hpf Urine Bacteria Not seen (FEW) /hpf Urine Mucus Not seen (FEW) /hpf Meds: Medications Discontinued Medications Generic Name Dose Route Start Last Admin Trade Name Olivia PRN Reason Stop Dose Admin Diphenhydramine HCl 25 mg 04/24/18 16:40 04/24/18 17:10 Benadryl IVPUSH 04/24/18 16:41 25 mg ONETIME ONE Administration Sodium Chloride 1,000 mls @ 999 mls/hr 04/24/18 16:40 04/24/18 17:10 Normal Saline IV 04/24/18 17:40 999 mls/hr ONETIME ONE Administration Sodium Chloride 1,000 mls @ 999 mls/hr 04/24/18 18:29 04/24/18 19:32 Normal Saline IV 04/24/18 19:29 999 mls/hr ONETIME ONE Administration Sodium Chloride 10 ml 04/24/18 16:40 04/24/18 17:11 Saline Flush FLUSH 10 ml ASDIRECTED PRN Administration Keep Vein Open - Re-Assessments/Exams Free Text/Narrative Re-Assessment/Exam: 04/24/18 18:43 Checked on the patient. She has received 1 L of fluids. She is feeling improved. Her heart rate did increase by 30 bpm with orthostatic vital signs, standing. Will give second bag of fluid and plan to discharge home. She's not had any diarrhea since entering the ER. Reviewed the labs with the patient. No need for imaging at this time. Once the second liter of fluid is in she may go home. Discharge instructions as documented. Departure - Departure Time of Disposition: 19:16 Disposition: Home, Self-Care 01 Condition: Fair Clinical Impression: Orthostatic hypotension Diarrhea Qualifiers: Diarrhea type: unspecified type Qualified Code(s): R19.7 - Diarrhea, unspecified - Discharge Information Instructions: Hypotension, [id number], Diarrhea, Adult, [id number] Referrals: Soheila Cooper MD [Primary Care Provider] - Forms: ED Department Discharge Additional Instructions: Continue with your care plan of care. Make sure you are drinking plenty of fluids. If your symptoms persist into early next week follow-up in the clinic. Please return the ER if your symptoms change or worsen.
[2018-04-24 21:49] VITALS: BP 120/71
== END 2018-04-24 20:45 | disposition home or self-care (01) ==
LOC: JD.ED 15:30
DX: I95.1 Orthostatic hypotension (principal); R19.7 Diarrhea, unspecified; Z88.8 Allergy status to other drugs, medicaments and biological substances; Z88.5 Allergy status to narcotic agent; Z88.2 Allergy status to sulfonamides; Z79.899 Other long term (current) drug therapy
CPT/HCPCS: 36415; 80053; 81001; 85025; 96361; 96374; 99284; J1200; J7040; J7050

== ENCOUNTER 2019-02-06 17:22 | Emergency (ER) | payer BC ==
[2019-02-06 17:53] VITALS: BP 112/76
--- NOTE | 2019-02-06 18:11 | EDM.PDOC ---
ED HPI GENERAL MEDICAL PROBLEM - General Chief Complaint: General Stated Complaint: CHECK PORT Time Seen by Provider: 02/06/19 18:02 Source of Information: Reports: Patient, RN Notes Reviewed History Limitations: Reports: No Limitations - History of Present Illness INITIAL COMMENTS - FREE TEXT/NARRATIVE: Patient is a 28-year-old female who presents to the ED today for a port dressing change. The patient states she has a disease called Ehler Danlos syndrome, with mast cell issues as well, for which she needs frequent infusions. She states that she got her port accessed earlier today, however when she got home the top of the dressing had peeled down. She did put on sterile gloves and tried to clean the area with alcohol and fix the dressing with tape however she figured that it would be best if she came to the ER for proper dressing change. This is her only concern at this time. - Related Data Allergies Allergy/AdvReac Type Severity Reaction Status Date / Time celecoxib [From Celebrex] Allergy Itching Verified 02/06/19 17:41 cephalexin Allergy Other Verified 02/06/19 17:41 codeine Allergy Rash Verified 02/06/19 17:41 gluten Allergy Other Verified 02/06/19 17:41 Iodinated Contrast- Oral and Allergy Hives Verified 02/06/19 17:41 IV Dye [Iodinated Contrast Media - IV Dye] lorazepam [From Ativan] Allergy Other Verified 02/06/19 17:41 rituximab [From Rituxan] Allergy Anaphylactic Verified 02/06/19 17:41 Shock albuterol AdvReac Hyperactivi Verified 02/06/19 17:41 ty Dairy Products AdvReac Diarrhea Verified 02/06/19 17:41 hydrocodone AdvReac Nausea Verified 02/06/19 17:41 hydromorphone [From Dilaudid] AdvReac Burning Verified 02/06/19 17:41 morphine AdvReac Burning Verified 02/06/19 17:41 soy AdvReac Abdominal Verified 02/06/19 17:41 Pain Sulfa (Sulfonamide AdvReac Confusion Verified 02/06/19 17:41 Antibiotics) tramadol AdvReac Confusion Verified 02/06/19 17:41 Bandaid Allergy Other Uncoded 02/06/19 17:41 morphine Allergy Anaphylactic Uncoded 02/06/19 17:41 Shock Home Meds: Home Meds Cholecalciferol (Vitamin D3) [Vitamin D] 10,000 unit PO DAILY 04/23/14 [History] Thyroid,Pork [Nature-Throid] 32.5 mg PO DAILY 05/13/15 [History] Midodrine 2.5 mg PO DAILY 11/06/17 [History] Naltrexone 4 mg PO DAILY 11/06/17 [History] Neuroprotek 1 tab PO 6XDAY 11/06/17 [History] Ranitidine HCl [Zantac] 150 mg PO BID 11/06/17 [History] Ondansetron [Zofran ODT] 4 mg PO Q6H PRN #20 tab.dis 12/20/17 [Rx] Ivabradine HCl [Corlanor] 2.5 mg PO DAILY 04/24/18 [History] EPINEPHrine [Epipen] 0.3 mg SUBCUT ASDIRECTED 07/21/18 [History] Ibuprofen [Advil] 200 mg PO ASDIRECTED 07/21/18 [History] Promethazine [Phenergan] 25 mg PO ASDIRECTED 07/21/18 [History] diphenhydrAMINE [Benadryl] 25 mg IM ASDIRECTED 07/21/18 [History] hydrOXYzine HCl [hydrOXYzine] 25 mg PO ASDIRECTED 07/21/18 [History] predniSONE [Prednisone] 20 mg PO ASDIRECTED 07/21/18 [History] Cromolyn Sodium [Nasalcrom] 1 spray NS QID 08/01/18 [History] Hydrocortisone 10 mg PO DAILY 08/01/18 [History] Hydrocortisone [Cortef] 5 mg PO DAILY 08/01/18 [History] Ascorbic Acid [Vitamin C] 500 mg PO ASDIRECTED 11/04/18 [History] Aspirin 81 mg PO DAILY 11/04/18 [History] Calcium Citrate 250 mg PO QID 11/04/18 [History] Imatinib Mesylate 100 mg PO DAILY 11/04/18 [History] Ketotifen [Ketotifen 0.025% Ophth Soln] 2 mg .XX TID 11/04/18 [History] Levomefolate Calcium [l-Methylfolate] 15 mg PO DAILY 11/04/18 [History] Montelukast [Singulair] 10 mg PO BID 11/04/18 [History] Past Medical History HEENT History: Reports: Other (See Below) Other HEENT History: tinnitus Cardiovascular History: Reports: Other (See Below) Other Cardiovascular History: mahmood Respiratory History: Reports: SOB Gastrointestinal History: Reports: Celiac Disease Genitourinary History: Reports: Other (See Below) Other Genitourinary History: interstitial systitus Musculoskeletal History: Reports: Other (See Below) Neurological History: Reports: Headaches, Chronic, Seizure, Other (See Below) Other Neuro History: autonomic seizures, cfids, cranio-cervical instability Psychiatric History: Reports: Other (See Below) Endocrine/Metabolic History: Reports: Hypothyroidism, Obesity/BMI 30+ Hematologic History: Reports: Other (See Below) Other Hematologic History: EDS, mecasts syndrome, small fiber neuropathy, mast cell activation disorder - Past Surgical History GI Surgical History: Reports: Cholecystectomy Social & Family History - Family History Family Medical History: Noncontributory - Tobacco Use Smoking Status *Q: Never Smoker - Caffeine Use Caffeine Use: Reports: Coffee - Recreational Drug Use Recreational Drug Use: No - Living Situation & Occupation Living situation: Reports: , with Spouse Occupation: Unemployed ED ROS GENERAL - Review of Systems Review Of Systems: ROS reveals no pertinent complaints other than HPI. Constitutional: Reports: No Symptoms HEENT: Reports: No Symptoms Respiratory: Reports: No Symptoms Cardiovascular: Reports: No Symptoms Endocrine: Reports: No Symptoms GI/Abdominal: Reports: No Symptoms : Reports: No Symptoms Musculoskeletal: Reports: No Symptoms Skin: Reports: Other (Port change) Neurological: Reports: No Symptoms Psychiatric: Reports: No Symptoms Hematologic/Lymphatic: Reports: No Symptoms Immunologic: Reports: No Symptoms ED EXAM, GENERAL - Physical Exam Exam: See Below Exam Limited By: No Limitations General Appearance: Alert, WD/WN, No Apparent Distress Respiratory/Chest: No Respiratory Distress, Lungs Clear, Normal Breath Sounds, No Accessory Muscle Use, Chest Non-Tender Cardiovascular: Normal Peripheral Pulses, Regular Rate, Rhythm, No Murmur Extremities: Normal Inspection, Normal Capillary Refill Neurological: Alert, Oriented, Normal Cognition, No Motor/Sensory Deficits Psychiatric: Normal Affect, Normal Mood Skin Exam: Warm, Dry, Intact (With left upper chest port dressing in place), Normal Color, No Rash Course - Vital Signs Last Recorded V/S: Last Vital Signs Temp 97 F 02/06/19 17:51 Pulse 79 02/06/19 17:51 Resp 16 02/06/19 17:51 BP 112/76 02/06/19 17:51 Pulse Ox 98 02/06/19 17:51 - Orders/Labs/Meds Orders: Active Orders 24 hr Category Date Time Status Dressing Change [Wound Care] [RC] ASDIRECTED Care 02/06/19 18:03 Active - Re-Assessments/Exams Free Text/Narrative Re-Assessment/Exam: 02/06/19 18:10 Patient presents to the ED for the evaluation for a dressing change of her port. I did assess the patient briefly and have ordered the dressing to be changed per nursing. The patient will be discharged home after the dressing change is complete. Departure - Departure Time of Disposition: 18:11 Disposition: Home, Self-Care 01 Condition: Fair Clinical Impression: Encounter for change of dressing - Discharge Information *PRESCRIPTION DRUG MONITORING PROGRAM REVIEWED*: No *COPY OF PRESCRIPTION DRUG MONITORING REPORT IN PATIENT CADY: No Instructions: How to Change Your Dressing, [id number] Referrals: Soheila Cooper MD [Primary Care Provider] - Forms: ED Department Discharge Additional Instructions: You have been evaluated in the ED today for your port dressing change. The nursing staff did provide you with a sterile dressing change. Please return to the ED if you should need further help, or your symptoms change or worsen. - My Orders Last 24 Hours: My Active Orders 02/06/19 18:03 Dressing Change [Wound Care] [RC] ASDIRECTED - Assessment/Plan Last 24 Hours: My Active Orders 02/06/19 18:03 Dressing Change [Wound Care] [RC] ASDIRECTED
== END 2019-02-06 19:03 | disposition home or self-care (01) ==
LOC: JD.ED 17:22
DX: Z48.00 Encounter for change or removal of nonsurgical wound dressing (principal); Z88.8 Allergy status to other drugs, medicaments and biological substances; Z91.011 Allergy to milk products; Z88.5 Allergy status to narcotic agent; Z88.2 Allergy status to sulfonamides; Z91.018 Allergy to other foods; Z79.899 Other long term (current) drug therapy
CPT/HCPCS: 99281; 99283

== ENCOUNTER 2019-03-25 13:26 | Emergency (ER) | payer BC ==
[2019-03-25 13:39] VITALS: BP 146/81
--- NOTE | 2019-03-25 16:28 | EDM.PDOC ---
ED HPI GENERAL MEDICAL PROBLEM - General Chief Complaint: Respiratory Problem Stated Complaint: SOB Time Seen by Provider: 03/25/19 13:28 Source of Information: Reports: Patient, Family (), RN Notes Reviewed History Limitations: Reports: No Limitations - History of Present Illness INITIAL COMMENTS - FREE TEXT/NARRATIVE: I received a telephone call from Dr. Christopher Mathur, the patient's [place] physician, at 12:39. He related that the patient has a history of celiac disease , mast cell activation disease causing total body edema, and Raimundo Danlos. He stated that he had been contacted by the patient who related that she had been dyspneic while supine, a new symptom for her. He was concerned that the patient may be suffering from fluid overload or congestive heart failure, possibly related to the imatinib (Gleevec) that she is on causing increased levels of the ivabradine (Corlanor) that she is also on. He suggested that we check an ECG , chest x-ray, and labs. He provided a callback number. The patient states that she has been dyspneic while supine for approximately 2 months, but that her symptoms improve when she is on prednisone, which she is on periodically. She states that she is currently tapering her prednisone, therefore her symptoms have worsened. She reports a cough and possible wheeze when supine. No recent fever. No prior medical evaluation for this symptom. The patient's PCP is Dr. Soheila Cooper. Her [place] Clinical Physician Assistant is Dr. Christopher mathur. Bilateral Upper Thoracic Pain Score (Numeric/FACES): 5 - Related Data Allergies Allergy/AdvReac Type Severity Reaction Status Date / Time celecoxib [From Celebrex] Allergy Itching Verified 03/25/19 13:40 cephalexin Allergy Other Verified 03/25/19 13:40 codeine Allergy Rash Verified 03/25/19 13:40 gluten Allergy Other Verified 03/25/19 13:40 Iodinated Contrast- Oral and Allergy Hives Verified 03/25/19 13:40 IV Dye [Iodinated Contrast Media - IV Dye] lorazepam [From Ativan] Allergy Other Verified 03/25/19 13:40 rituximab [From Rituxan] Allergy Anaphylactic Verified 03/25/19 13:40 Shock albuterol AdvReac Hyperactivi Verified 03/25/19 13:40 ty Dairy Products AdvReac Diarrhea Verified 03/25/19 13:40 hydrocodone AdvReac Nausea Verified 03/25/19 13:40 hydromorphone [From Dilaudid] AdvReac Burning Verified 03/25/19 13:40 morphine AdvReac Burning Verified 03/25/19 13:40 soy AdvReac Abdominal Verified 03/25/19 13:40 Pain Sulfa (Sulfonamide AdvReac Confusion Verified 03/25/19 13:40 Antibiotics) tramadol AdvReac Confusion Verified 03/25/19 13:40 Bandaid Allergy Other Uncoded 03/25/19 13:40 morphine Allergy Anaphylactic Uncoded 03/25/19 13:40 Shock Home Meds: Home Meds Cromolyn Sodium [Nasalcrom] 1 spray NS QID PRN 08/01/18 [History] Hydrocortisone 10 mg PO DAILY 08/01/18 [History] Ascorbic Acid [Vitamin C] 500 mg PO QID 11/04/18 [History] Aspirin 81 mg PO DAILY 11/04/18 [History] Calcium Citrate 250 mg PO QID 11/04/18 [History] Calcium Carbonate/Vitamin D3 [Calcium 500 mg-Vit D3 600 Unit] 250 mg PO ASDIRECTED 02/20/19 [History] Cholecalciferol (Vitamin D3) [Vitamin D3] 1 tab PO BID 02/20/19 [History] Cromolyn Sodium 400 mg PO TID 02/20/19 [History] Desogestrel-Ethinyl Estradiol [Desogest-Eth Estra 0.15-0.03MG] 1 tab PO ASDIRECTED 02/20/19 [History] Hydrocortisone 5 mg PO DAILY 02/20/19 [History] Imatinib Mesylate 200 mg PO DAILY 02/20/19 [History] Ivabradine HCl [Corlanor] 5 mg PO BID 02/20/19 [History] Levomefolate Calcium [l-Methylfolate] 15 mg PO DAILY 02/20/19 [History] Midodrine 2.5 mg PO DAILY 02/20/19 [History] Montelukast [Singulair] 10 mg PO BID 02/20/19 [History] Naltrexone 1 mg PO QAM 02/20/19 [History] Ranitidine [Zantac] 150 mg PO BID 02/20/19 [History] hydrOXYzine HCl [hydrOXYzine] 25 mg PO QID 02/20/19 [History] Budesonide [Entocort EC] 3 mg PO ASDIRECTED PRN 03/25/19 [History] EPINEPHrine [Auvi-Q] 0.3 mg SUBCUT ASDIRECTED PRN 03/25/19 [History] Enoxaparin [Lovenox] 100 mg SQ Q12H #12 syringe 03/25/19 [Rx] Ibuprofen 200 - 400 mg PO ATDISCHARGE PRN 03/25/19 [History] Ketorolac [Toradol] 30 mg IM ASDIRECTED PRN 03/25/19 [History] Ketotifen [Ketotifen 0.025% Ophth Soln] 2 mg PO TID 03/25/19 [History] Magnesium Glycinate [Magnesium Bisglycinate Chelate] 500 mg PO ASDIRECTED [History] Naltrexone 4 mg PO BEDTIME 03/25/19 [History] Neuroprotek Low Phenol. 6 tab PO DAILY 03/25/19 [History] Palmitoylethanolamide. 400 mg PO TID 03/25/19 [History] Promethazine [Phenergan] 25 mg PO ASDIRECTED PRN 03/25/19 [History] Sodium Chloride 1 gm PO ASDIRECTED PRN 03/25/19 [History] Sodium Chloride 0.9% [Normal Saline] 1,000 ml IV ASDIRECTED PRN 03/25/19 [ History] Thyroid,Pork [STATISTICAL TYPIST Thyroid] 30 mg PO DAILY 03/25/19 [History] diphenhydrAMINE [Benadryl] 25 - 50 mg IM DAILY PRN 03/25/19 [History] predniSONE [Prednisone] 20 - 40 mg PO ASDIRECTED PRN 03/25/19 [History] Past Medical History HEENT History: Reports: Other (See Below) Other HEENT History: tinnitus Gastrointestinal History: Reports: Celiac Disease Genitourinary History: Reports: Other (See Below) (Interstitial cystitis) Musculoskeletal History: Reports: Other (See Below) (Raimundo Danlos. Craniocervical instability.) Neurological History: Reports: Headaches, Chronic, Other (See Below) ( Idiopathic small fiber neuropathy) Psychiatric History: Reports: Other (See Below) (Chronic fatigue syndrome, aka myalgic encephalomyelitis. Fibromyalgia. Pseudoseizures.) Endocrine/Metabolic History: Reports: Hypothyroidism, Obesity/BMI 30+ Immunologic History: Reports: Other (See Below) (Mastocytosis) - Past Surgical History Cardiovascular Surgical History: Reports: Other (See Below) (Left Port-A-Cath) GI Surgical History: Reports: Cholecystectomy (2013) Social & Family History - Family History Family Medical History: Noncontributory - Tobacco Use Smoking Status *Q: Never Smoker Second Hand Smoke Exposure: No - Caffeine Use Caffeine Use: Reports: None - Alcohol Use Alcohol Use History: No - Recreational Drug Use Recreational Drug Use: No - Living Situation & Occupation Living situation: Reports: , with Spouse Occupation: Unemployed ED ROS GENERAL - Review of Systems Review Of Systems: ROS reveals no pertinent complaints other than HPI. ED EXAM, GENERAL - Physical Exam Exam: See Below Exam Limited By: No Limitations General Appearance: Alert, WD/WN, No Apparent Distress, Other (Lying supine on the gurney with her own body-wrap pillows, wearing a cervical collar and a cloth mask with a vent) Eye Exam: Bilateral Eye: EOMI, Normal Inspection Ears: Normal External Exam, Hearing Grossly Normal Nose: Normal Inspection Throat/Mouth: Normal Voice, No Airway Compromise Head: Atraumatic, Normocephalic Neck: Other (Cervical collar not removed) Respiratory/Chest: No Respiratory Distress, Lungs Clear, Normal Breath Sounds, No Accessory Muscle Use. No: Decreased Breath Sounds, Crackles, Rhonchi, Wheezing, Prolonged Expiration Cardiovascular: Normal Peripheral Pulses, Regular Rate, Rhythm, No Gallop, No JVD, No Murmur, No Rub Peripheral Pulses: 4+: Radial (L), Radial (R) GI/Abdominal: Normal Bowel Sounds, Soft, Non-Tender, No Organomegaly, No Distention, No Abnormal Bruit, No Mass, Other (Obese) (Female) Exam: Deferred Rectal (Female) Exam: Deferred Back Exam: Normal Inspection, Full Range of Motion, NT Extremities: Normal Inspection, Normal Capillary Refill Neurological: Alert, Oriented, Normal Cognition, No Motor/Sensory Deficits Psychiatric: Normal Affect Skin Exam: Warm, Dry, Intact, Normal Color, No Rash EKG INTERPRETATION EKG Date: 03/25/19 Time: 15:39 Rhythm: NSR Rate (Beats/Min): 69 [place]: Normal P-Wave: Present QRS: Normal ST-T: Normal QT: Normal Comparison: No Change (09/19/2016) Course - Vital Signs Last Recorded V/S: Last Vital Signs Temp 36.6 C 03/25/19 13:37 Pulse 84 03/25/19 13:37 Resp 16 03/25/19 13:37 BP 146/81 H 03/25/19 13:37 Pulse Ox 92 L 03/25/19 13:37 - Orders/Labs/Meds Labs: Laboratory Tests 03/25/19 03/25/19 03/25/19 Range/Units 15:25 15:25 15:25 WBC 12.99 H (3.98-10.04) K/mm3 RBC 4.11 (3.98-5.22) M/mm3 Hgb 12.3 (11.2-15.7) gm/L Hct 37.5 (34.1-44.9) % MCV 91.2 D (79.4-94.8) fl MCH 29.9 (25.6-32.2) pg MCHC 32.8 (32.2-35.5) g/dl RDW Std Deviation 47.8 H (36.4-46.3) fL Plt Count 134 L D (182-369) K/mm3 MPV 9.7 (9.4-12.3) fl Neutrophils % (Manual) 81 H (40-60) % Band Neutrophils % 4 (0-10) % Lymphocytes % (Manual) 10 L (20-40) % Atypical Lymphs % 0 % Monocytes % (Manual) 4 (2-10) % Eosinophils % (Manual) 0 L (0.7-5.8) % Basophils % (Manual) 0 L (0.1-1.2) Myelocytes % 1 Hypersegmented Neuts Few Platelet Estimate Decreased Plt Morphology Comment Normal RBC Morph Comment Normal D-Dimer, Quantitative (0.19-0.50) mg/L Sodium 141 (136-145) mEq/L Potassium 4.3 (3.5-5.1) mEq/L Chloride 104 (98-107) mEq/L Carbon Dioxide 23 (21-32) mEq/L Anion Gap 18.3 H (5-15) BUN 16 (7-18) mg/dL Creatinine 0.9 (0.55-1.02) mg/dL Est Cr Clr Drug Dosing 87.12 mL/min Estimated GFR (MDRD) > 60 (>60) mL/min BUN/Creatinine Ratio 17.8 (14-18) Glucose 96 (74-106) mg/dL Calcium 9.2 (8.5-10.1) mg/dL Total Bilirubin 0.5 (0.2-1.0) mg/dL AST 17 (15-37) U/L ALT 35 (14-59) U/L Alkaline Phosphatase 44 L (46-116) U/L Troponin I < 0.017 (0.00-0.056) ng/mL NT-Pro-B Natriuret Pep 225 H (0-125) pg/mL Total Protein 6.2 L (6.4-8.2) g/dl Albumin 3.1 L (3.4-5.0) g/dl Globulin 3.1 gm/dL Albumin/Globulin Ratio 1.0 (1-2) /03/08 Range/Units 15:37 WBC (3.98-10.04) K/mm3 RBC (3.98-5.22) M/mm3 Hgb (11.2-15.7) gm/L Hct (34.1-44.9) % MCV (79.4-94.8) fl MCH (25.6-32.2) pg MCHC (32.2-35.5) g/dl RDW Std Deviation (36.4-46.3) fL Plt Count (182-369) K/mm3 MPV (9.4-12.3) fl Neutrophils % (Manual) (40-60) % Band Neutrophils % (0-10) % Lymphocytes % (Manual) (20-40) % Atypical Lymphs % % Monocytes % (Manual) (2-10) % Eosinophils % (Manual) (0.7-5.8) % Basophils % (Manual) (0.1-1.2) Myelocytes % Hypersegmented Neuts Platelet Estimate Plt Morphology Comment RBC Morph Comment D-Dimer, Quantitative 6.43 H (0.19-0.50) mg/L Sodium (136-145) mEq/L Potassium (3.5-5.1) mEq/L Chloride (98-107) mEq/L Carbon Dioxide (21-32) mEq/L Anion Gap (5-15) BUN (7-18) mg/dL Creatinine (0.55-1.02) mg/dL Est Cr Clr Drug Dosing mL/min Estimated GFR (MDRD) (>60) mL/min BUN/Creatinine Ratio (14-18) Glucose (74-106) mg/dL Calcium (8.5-10.1) mg/dL Total Bilirubin (0.2-1.0) mg/dL AST (15-37) U/L ALT (14-59) U/L Alkaline Phosphatase (46-116) U/L Troponin I (0.00-0.056) ng/mL NT-Pro-B Natriuret Pep (0-125) pg/mL Total Protein (6.4-8.2) g/dl Albumin (3.4-5.0) g/dl Globulin gm/dL Albumin/Globulin Ratio (1-2) Meds: Medications Discontinued Medications Generic Name Dose Route Start Last Admin Trade Name Freq PRN Reason Stop Dose Admin Enoxaparin Sodium 100 mg 03/25/19 19:05 03/25/19 19:18 Lovenox SUBCUT 03/25/19 19:06 100 mg ONETIME ONE Administration Heparin Sodium (Porcine) 500 units 03/25/19 19:40 03/25/19 19:45 Heparin Lock Flush 100 Units/Ml FLUSH 03/25/19 19:41 500 units ASDIRECTED ONE Administration Hydroxyzine HCl 25 mg 03/25/19 17:01 03/25/19 17:25 Atarax PO 03/25/19 17:02 25 mg ONETIME ONE Administration Sodium Chloride 1,000 mls @ 150 mls/hr 03/25/19 16:30 03/25/19 17:25 Normal Saline IV 150 mls/hr ASDIRECTED BEL Administration Sodium Chloride 100 mls @ 3 mls/sec 03/25/19 16:45 03/25/19 18:05 Normal Saline IV 3 mls/sec ASDIRECTED BEL Administration Iohexol 75 ml 03/25/19 16:33 03/25/19 18:05 Omnipaque IVPUSH 03/25/19 16:34 75 ml ONETIME ONE Administration Montelukast Sodium 10 mg 03/25/19 17:03 03/25/19 17:25 Singulair PO 03/25/19 17:04 10 mg ONETIME ONE Administration Prednisone 40 mg 03/25/19 16:59 03/25/19 17:33 Prednisone PO 03/25/19 17:00 40 mg ONETIME STA Administration Prednisone 10 mg 03/25/19 17:00 03/25/19 17:33 Prednisone PO 03/25/19 17:01 10 mg ONETIME ONE Administration Ranitidine HCl 150 mg 03/25/19 17:01 03/25/19 17:24 Zantac PO 03/25/19 17:02 150 mg ONETIME STA Administration Sodium Chloride 10 ml 03/25/19 16:45 03/25/19 18:05 Saline Flush FLUSH 10 ml ASDIRECTED BEL Administration - Re-Assessments/Exams Free Text/Narrative Re-Assessment/Exam: 03/25/19 16:25 Portable chest radiograph appears to be grossly normal. The cardiac silhouette is within normal limits. No pulmonary vascular congestion. No pleural effusions seen on this AP view. No focal infiltrate. No pneumothorax. Left-sided Port-A- Cath incidentally noted. Formal read per the Radiologist pending. 03/25/19 16:28 The patient's D-dimer has returned substantially elevated at 6.43. I have therefore ordered a CT angiogram of the chest to evaluate for a PE, along with IV fluid. 03/25/19 18:22 Ct angiogram of the chest is read by [facility] as: Bilateral pulmonary emboli Bibasilar and lingular peripheral opacities, most likely pulmonary infarcts 03/25/19 19:[address] Mathur at 18:39. I called him to see if he had a preference as to which long-term anticoagulant he would want the patient on. Since the patient is hemodynamically stable and does not require supplemental oxygen, she does not require hospitalization. Dr. Mathur was not familiar with the newer anticoagulants (Xarelto, Eliquis, Pradaxa), but was concerned that they could contain gluten. He therefore recommended that we treat the patient with LMWH until the subject can be researched to determine which of the oral agents are gluten-free. This plan was discussed with the patient, who is satisfied. I explained to the patient that enoxaparin (Lovenox) is approved for the treatment of VTE, but is off-label for treatment of PE. Fondaparinux (Arixtra) is approved for the treatment of PE, however, neither this hospital nor the patient's pharmacy ([facility]) have fondaparinux. The patient will therefore be started on enoxaparin 1 mg/kg SQ here in the ED, and I will prescribe a quantity sufficient through 03/31/2019. The patient will then contact the office of her PCP, Dr. Cooper. Dr. Cooper is currently on vacation, however, the patient can follow-up with Dr. Humphreys or one of the other providers, who can then make the determination which long-term anticoagulant is best for the patient. The patient will be discharged home with a coupon for 30 days of free Xarelto, in the event that Xarelto is chosen. Departure - Departure Time of Disposition: 19:19 Disposition: Home, Self-Care 01 Condition: Good Clinical Impression: Pulmonary embolus and infarction - Discharge Information *PRESCRIPTION DRUG MONITORING PROGRAM REVIEWED*: Not Applicable *COPY OF PRESCRIPTION DRUG MONITORING REPORT IN PATIENT CADY: Not Applicable Prescriptions: Enoxaparin [Lovenox] 100 mg SQ Q12H #12 syringe Instructions: Pulmonary Embolism Referrals: Christopher Mathur MD [Primary Care Provider] - Soheila Cooper MD [Physician] - Forms: ED Department Discharge Additional Instructions: You were seen in the emergency room for shortness of breath while lying back, for the past 2 days. Workup in the ER included blood work, 2 sets of blood cultures, a portable chest x-ray, a CT angiogram of your chest, and an ECG. The workup found that you have pulmonary emboli (blood clots in your lungs). The remainder of your workup was unremarkable. You have been started on the anticoagulant enoxaparin (Lovenox). A prescription for enoxaparin has been sent to the [facility], located in the [facility] grocery store. Inject 100 mg subcutaneously every 12 hours, as taught by the nurse, as prescribed. While taking an anticoagulant, you should not also take an NSAID, such as ibuprofen (Advil, Motrin), naproxen (Aleve), ketorolac (Toradol), or meloxicam ( Mobic), as this can increase the risk of your developing a gastrointestinal bleed. Follow-up with Dr. Rob Humphreys, or one of the other providers, in the clinic on or before 03/31/2019, in order to determine which long-term anticoagulant is best for you. You have been given a coupon for 30 days of Xarelto free, if that is the agent that is chosen. If any other problems, please do not hesitate to return to the ER.
[2019-03-25] MEDS ORDERED: Sodium Chloride 0.9% 1,000 ML IV SCH (16:30)
[2019-03-25] MEDS ORDERED: Iohexol 350 MG/ML 75 ML Bottle IVPUSH ONE (16:33)
[2019-03-25] MEDS ORDERED: Sodium Chloride 0.9% 10 ML Syringe FLUSH SCH (16:45)
[2019-03-25] MEDS ORDERED: Sodium Chloride 0.9% 100 ML IV SCH (16:45)
[2019-03-25] MEDS ORDERED: predniSONE 20 MG Tab PO STA (16:59)
[2019-03-25] MEDS ORDERED: predniSONE 10 MG Tab PO ONE (17:00)
[2019-03-25] MEDS ORDERED: Ranitidine 15 MG/ML Syrup 10 ML UD Cup PO STA (17:01)
[2019-03-25] MEDS ORDERED: hydrOXYzine HCl 25 MG Tab PO ONE (17:01)
[2019-03-25] MEDS ORDERED: Montelukast 10 MG Tab PO ONE (17:03)
[2019-03-25] MEDS ORDERED: Enoxaparin 100 MG/1 ML Syringe SUBCUT ONE (19:05)
--- NOTE | 2019-03-26 07:45 | CR ---
Chest: Frontal view of the chest was obtained utilizing portable technique. Comparison: Prior chest x-ray of 12/27/17. Heart size and mediastinum are within normal limits. Left-sided infusion port is seen. Lungs are clear with no acute parenchymal change. Scoliosis is noted within the spine. Impression: 1. Incidental findings. Nothing acute is seen. Diagnostic code #2
--- NOTE | 2019-03-26 08:57 | CT ---
CT chest Technique: Multiple axial sections were obtained from above the lung apices inferiorly through the lung bases. Intravenous contrast was utilized. Study has been performed as a pulmonary angiogram protocol. Comparison: Prior chest x-ray performed on the same day (3:06 PM and chest x-ray 12/27/17 Findings: Filling defects are identified within the segmental branches within both lower lungs extending into subsegmental branches. No pulmonary emboli are seen within the main pulmonary arteries. No upper lobe pulmonary emboli are seen. Mediastinal lymph nodes are seen which are felt to be within normal limits. No pericardial thickening is seen. Visualized upper abdominal structures are within normal limits. Lung window settings were obtained which show multiple pleural-based mass-like lesions within both lower lungs, worse on the right side as well as within the lingula. Upper lungs are clear. Bone window settings were reviewed which appear within normal limits for the patient's age. Impression: 1. Findings compatible with moderate amount of pulmonary emboli within both lower lung pulmonary arteries involving segmental and subsegmental branches. 2. Pleural-based nodular mass-like lesions within both lower lungs and lingula. These are nonspecific but given the pulmonary emboli they are most likely due to pulmonary infarcts. Follow-up chest CT could be considered in 6 months to confirm resolution or change into scarring. 3. No additional abnormality is identified. Diagnostic code #5 I agree with preliminary report from [facility], finalized on 03/25/19, 7:17 PM Central Time
== END 2019-03-25 19:50 | disposition home or self-care (01) ==
LOC: JD.ED 13:26
DX: I26.99 Other pulmonary embolism without acute cor pulmonale (principal); Z88.8 Allergy status to other drugs, medicaments and biological substances; Z88.5 Allergy status to narcotic agent; Z79.899 Other long term (current) drug therapy; Z79.82 Long term (current) use of aspirin
CPT/HCPCS: 36415; 71045; 71275; 80053; 83880; 84484; 85007; 85027; 85379; 87040; 93005; 96360; 96361; 96372; 99285; A9270; J1642; J1650; J7030; J7040; Q9967

== ENCOUNTER 2019-04-16 15:32 | Emergency (ER) | payer BC ==
[2019-04-16 15:55] VITALS: BP 132/86
--- NOTE | 2019-04-16 16:01 | EDM.PDOC ---
ED HPI GENERAL MEDICAL PROBLEM - General Chief Complaint: General Time Seen by Provider: 04/16/19 15:58 Source of Information: Reports: Patient History Limitations: Reports: No Limitations - History of Present Illness INITIAL COMMENTS - FREE TEXT/NARRATIVE: Patient is a 29-year-old female with a history of PE, chronic shortness of breath, celiac disease, interstitial cystitis, scoliosis, seizures, headaches, craniocervical instability, hypothyroidism, EDS, mecats syndrome, small fiber neuropathy, and mass cell activation disorder. Patient states she was diagnosed with bilateral PE March [id number] while evaluated in the emergency department. She was started on Lovenox to which she's been taking regularly. She was started on warfarin and states that they discontinued the warfarin this past Saturday. They stopped the warfarin since they were concerned of possible drug interaction with current medications. In addition they are hoping that surgery for the craniocervical instability May be conducted sooner. Patient requires to wear a c-collar until surgery. Since being on the Lovenox patient has been experiencing some bruising to her legs and also to the abdomen where the she injects. She has a port to the left chest and receives IV infusion of fluids on a weekly basis. Port was accessed on Saturday and removed yesterday. Patient states with removal of the bandage a clot was present. She states her urine has been quite dark today. She has no painful urination. There is no history kidney stones. She denies any fever, chills, worsening shortness of breath, worsening cough, productive cough, hemoptysis, significant abdominal pain, dysuria, increased swelling to lower extremities, or history of HIT. There has been no changes to her current medication regimen. Right Flank Pain Score (Numeric/FACES): 6 - Related Data Allergies Allergy/AdvReac Type Severity Reaction Status Date / Time celecoxib [From Celebrex] Allergy Itching Verified 03/25/19 13:40 cephalexin Allergy Other Verified 03/25/19 13:40 codeine Allergy Rash Verified 03/25/19 13:40 gluten Allergy Other Verified 03/25/19 13:40 Iodinated Contrast- Oral and Allergy Hives Verified 03/25/19 13:40 IV Dye [Iodinated Contrast Media - IV Dye] lorazepam [From Ativan] Allergy Other Verified 03/25/19 13:40 rituximab [From Rituxan] Allergy Anaphylactic Verified 03/25/19 13:40 Shock albuterol AdvReac Hyperactivi Verified 03/25/19 13:40 ty Dairy Products AdvReac Diarrhea Verified 03/25/19 13:40 hydrocodone AdvReac Nausea Verified 03/25/19 13:40 hydromorphone [From Dilaudid] AdvReac Burning Verified 03/25/19 13:40 morphine AdvReac Burning Verified 03/25/19 13:40 soy AdvReac Abdominal Verified 03/25/19 13:40 Pain Sulfa (Sulfonamide AdvReac Confusion Verified 03/25/19 13:40 Antibiotics) tramadol AdvReac Confusion Verified 03/25/19 13:40 Bandaid Allergy Other Uncoded 03/25/19 13:40 morphine Allergy Anaphylactic Uncoded 03/25/19 13:40 Shock Home Meds: Home Meds Cromolyn Sodium [Nasalcrom] 1 spray NS QID PRN 08/01/18 [History] Hydrocortisone 10 mg PO DAILY 08/01/18 [History] Ascorbic Acid [Vitamin C] 500 mg PO QID 11/04/18 [History] Aspirin 81 mg PO DAILY 11/04/18 [History] Calcium Citrate 250 mg PO QID 11/04/18 [History] Calcium Carbonate/Vitamin D3 [Calcium 500 mg-Vit D3 600 Unit] 250 mg PO ASDIRECTED 02/20/19 [History] Cholecalciferol (Vitamin D3) [Vitamin D3] 1 tab PO BID 02/20/19 [History] Cromolyn Sodium 400 mg PO TID 02/20/19 [History] Desogestrel-Ethinyl Estradiol [Desogest-Eth Estra 0.15-0.03MG] 1 tab PO ASDIRECTED 02/20/19 [History] Hydrocortisone 5 mg PO DAILY 02/20/19 [History] Imatinib Mesylate 200 mg PO DAILY 02/20/19 [History] Ivabradine HCl [Corlanor] 5 mg PO BID 02/20/19 [History] Levomefolate Calcium [l-Methylfolate] 15 mg PO DAILY 02/20/19 [History] Midodrine 2.5 mg PO DAILY 02/20/19 [History] Montelukast [Singulair] 10 mg PO BID 02/20/19 [History] Naltrexone 1 mg PO QAM 02/20/19 [History] Ranitidine [Zantac] 150 mg PO BID 02/20/19 [History] hydrOXYzine HCl [hydrOXYzine] 25 mg PO QID 02/20/19 [History] Budesonide [Entocort EC] 3 mg PO ASDIRECTED PRN 03/25/19 [History] EPINEPHrine [Auvi-Q] 0.3 mg SUBCUT ASDIRECTED PRN 03/25/19 [History] Enoxaparin [Lovenox] 100 mg SQ Q12H #12 syringe 03/25/19 [Rx] Ibuprofen 200 - 400 mg PO ATDISCHARGE PRN 03/25/19 [History] Ketorolac [Toradol] 30 mg IM ASDIRECTED PRN 03/25/19 [History] Ketotifen [Ketotifen 0.025% Ophth Soln] 2 mg PO TID 03/25/19 [History] Magnesium Glycinate [Magnesium Bisglycinate Chelate] 500 mg PO ASDIRECTED [History] Naltrexone 4 mg PO BEDTIME 03/25/19 [History] Neuroprotek Low Phenol. 6 tab PO DAILY 03/25/19 [History] Palmitoylethanolamide. 400 mg PO TID 03/25/19 [History] Promethazine [Phenergan] 25 mg PO ASDIRECTED PRN 03/25/19 [History] Sodium Chloride 1 gm PO ASDIRECTED PRN 03/25/19 [History] Sodium Chloride 0.9% [Normal Saline] 1,000 ml IV ASDIRECTED PRN 03/25/19 [ History] Thyroid,Pork [[employer] Thyroid] 30 mg PO DAILY 03/25/19 [History] diphenhydrAMINE [Benadryl] 25 - 50 mg IM DAILY PRN 03/25/19 [History] predniSONE [Prednisone] 20 - 40 mg PO ASDIRECTED PRN 03/25/19 [History] Nitrofurantoin Monohyd/M-Cryst [Macrobid 100 mg Capsule] 100 mg PO BID #10 capsule 04/16/19 [Rx] Past Medical History HEENT History: Reports: Other (See Below) Other HEENT History: tinnitus Cardiovascular History: Reports: Other (See Below) Other Cardiovascular History: mahmood Respiratory History: Reports: SOB Gastrointestinal History: Reports: Celiac Disease Genitourinary History: Reports: Other (See Below) Other Genitourinary History: interstitial systitus [employer] History: Reports: Other (See Below) Other [employer] History: chlamydia Musculoskeletal History: Reports: Other (See Below) Other Musculoskeletal History: scoliosis Neurological History: Reports: Headaches, Chronic, Seizure, Other (See Below) Other Neuro History: autonomic seizures, cfids, cranio-cervical instability Psychiatric History: Reports: Other (See Below) Endocrine/Metabolic History: Reports: Hypothyroidism, Obesity/BMI 30+ Hematologic History: Reports: Other (See Below) Other Hematologic History: EDS, mecasts syndrome, small fiber neuropathy, mast cell activation disorder - Past Surgical History GI Surgical History: Reports: Cholecystectomy Social & Family History - Family History Family Medical History: Noncontributory - Tobacco Use Smoking Status *Q: Never Smoker Second Hand Smoke Exposure: No - Caffeine Use Caffeine Use: Reports: Coffee - Recreational Drug Use Recreational Drug Use: No - Living Situation & Occupation Living situation: Reports: , with Spouse Occupation: Unemployed ED ROS GENERAL - Review of Systems Review Of Systems: ROS reveals no pertinent complaints other than HPI. ED EXAM, GENERAL - Physical Exam Exam: See Below Exam Limited By: No Limitations General Appearance: Alert, WD/WN, No Apparent Distress, Other (Patient has a c- collar in place. She is wheelchair-bound.) Eye Exam: Bilateral Eye: Normal Inspection Ears: Hearing Grossly Normal Nose: Normal Inspection Throat/Mouth: Normal Inspection, Normal Voice, No Airway Compromise Head: Atraumatic, Normocephalic Neck: Normal Inspection, Supple, Non-Tender, Limited Range of Motion (C collar in place). No: Full Range of Motion Respiratory/Chest: No Respiratory Distress, Lungs Clear, Normal Breath Sounds, No Accessory Muscle Use, Chest Non-Tender Cardiovascular: Normal Peripheral Pulses, Regular Rate, Rhythm, No Murmur GI/Abdominal: Normal Bowel Sounds, Soft, Non-Tender, No Organomegaly, No Distention, Other (On exam patient has some slight tenderness along the right CVA region/flank. Mild in nature. She has no gallbladder. No pain along the right lower quadrant suggesting appendicitis. No epigastric pain.) Back Exam: Normal Inspection Extremities: Normal Inspection, Non-Tender, No Pedal Edema Neurological: Alert, Oriented, CN II-XII Intact, Normal Cognition Psychiatric: Normal Affect, Normal Mood Skin Exam: Warm, Dry, Intact, Normal Color Course - Vital Signs Last Recorded V/S: Last Vital Signs Temp 97.7 F 04/16/19 15:53 Pulse 90 04/16/19 15:53 Resp 15 04/16/19 15:53 BP 132/86 04/16/19 15:53 Pulse Ox 97 04/16/19 15:53 - Orders/Labs/Meds Orders: Active Orders 24 hr Category Date Time Status Peripheral IV Care [RC] . DIRECTED Care 04/16/19 16:21 Inactive CULTURE URINE [RM] Stat Lab 04/16/19 17:30 Results Labs: Laboratory Tests 04/16/19 04/16/19 04/16/19 Range/Units 16:17 16:17 16:17 WBC 6.89 (3.98-10.04) K/mm3 RBC 4.01 (3.98-5.22) M/mm3 Hgb 12.1 (11.2-15.7) gm/L Hct 36.7 (34.1-44.9) % MCV 91.5 (79.4-94.8) fl MCH 30.2 (25.6-32.2) pg MCHC 33.0 (32.2-35.5) g/dl RDW Std Deviation 48.5 H (36.4-46.3) fL Plt Count 188 (182-369) K/mm3 MPV 8.9 L (9.4-12.3) fl Neutrophils % (Manual) 76 H (40-60) % Band Neutrophils % 0 (0-10) % Lymphocytes % (Manual) 20 (20-40) % Atypical Lymphs % 0 % Monocytes % (Manual) 3 (2-10) % Eosinophils % (Manual) 1 (0.7-5.8) % Basophils % (Manual) 0 L (0.1-1.2) Platelet Estimate Adequate RBC Morph Comment Normal PT 19.4 H (9.5-12.1) SECONDS INR 1.80 APTT 43 H (24-31) SECONDS Sodium 140 (136-145) mEq/L Potassium 3.7 (3.5-5.1) mEq/L Chloride 105 (98-107) mEq/L Carbon Dioxide 24 (21-32) mEq/L Anion Gap 14.7 (5-15) BUN 10 (7-18) mg/dL Creatinine 0.9 (0.55-1.02) mg/dL Est Cr Clr Drug Dosing 87.12 mL/min Estimated GFR (MDRD) > 60 (>60) mL/min BUN/Creatinine Ratio 11.1 L (14-18) Glucose 113 H (74-106) mg/dL Calcium 8.7 (8.5-10.1) mg/dL Total Bilirubin 0.4 (0.2-1.0) mg/dL AST 21 (15-37) U/L ALT 92 H (14-59) U/L Alkaline Phosphatase 58 (46-116) U/L C-Reactive Protein 0.8 (<1.0) mg/dL Total Protein 6.1 L (6.4-8.2) g/dl Albumin 3.0 L (3.4-5.0) g/dl Globulin 3.1 gm/dL Albumin/Globulin Ratio 1.0 (1-2) Urine Color (Yellow) Urine Appearance (Clear) Urine pH (5.0-8.0) Ur Specific [place] (1.005-1.030) Urine Protein (Negative) Urine Glucose (UA) (Negative) Urine Ketones (Negative) Urine Occult Blood (Negative) Urine Nitrite (Negative) Urine Bilirubin (Negative) Urine Urobilinogen (0.2-1.0) Ur Leukocyte Esterase (Negative) Urine RBC (0-5) /hpf Urine WBC (0-5) /hpf Ur Epithelial Cells (0-5) /hpf Urine Bacteria (FEW) /hpf Urine Mucus (FEW) /hpf Urine HCG, Qual (NEGATIVE) 04/16/19 04/16/19 Range/Units 17:30 17:30 WBC (3.98-10.04) K/mm3 RBC (3.98-5.22) M/mm3 Hgb (11.2-15.7) gm/L Hct (34.1-44.9) % MCV (79.4-94.8) fl MCH (25.6-32.2) pg MCHC (32.2-35.5) g/dl RDW Std Deviation (36.4-46.3) fL Plt Count (182-369) K/mm3 MPV (9.4-12.3) fl Neutrophils % (Manual) (40-60) % Band Neutrophils % (0-10) % Lymphocytes % (Manual) (20-40) % Atypical Lymphs % % Monocytes % (Manual) (2-10) % Eosinophils % (Manual) (0.7-5.8) % Basophils % (Manual) (0.1-1.2) Platelet Estimate RBC Morph Comment PT (9.5-12.1) SECONDS INR APTT (24-31) SECONDS Sodium (136-145) mEq/L Potassium (3.5-5.1) mEq/L Chloride (98-107) mEq/L Carbon Dioxide (21-32) mEq/L Anion Gap (5-15) BUN (7-18) mg/dL Creatinine (0.55-1.02) mg/dL Est Cr Clr Drug Dosing mL/min Estimated GFR (MDRD) (>60) mL/min BUN/Creatinine Ratio (14-18) Glucose (74-106) mg/dL Calcium (8.5-10.1) mg/dL Total Bilirubin (0.2-1.0) mg/dL AST (15-37) U/L ALT (14-59) U/L Alkaline Phosphatase (46-116) U/L C-Reactive Protein (<1.0) mg/dL Total Protein (6.4-8.2) g/dl Albumin (3.4-5.0) g/dl Globulin gm/dL Albumin/Globulin Ratio (1-2) Urine Color Light yellow (Yellow) Urine Appearance Clear (Clear) Urine pH 8.5 H (5.0-8.0) Ur Specific [place] 1.015 (1.005-1.030) Urine Protein Negative (Negative) Urine Glucose (UA) Negative (Negative) Urine Ketones Negative (Negative) Urine Occult Blood 2+ H (Negative) Urine Nitrite Negative (Negative) Urine Bilirubin Negative (Negative) Urine Urobilinogen 0.2 (0.2-1.0) Ur Leukocyte Esterase 1+ H (Negative) Urine RBC 5-10 H (0-5) /hpf Urine WBC 10-20 H (0-5) /hpf Ur Epithelial Cells 0-5 (0-5) /hpf Urine Bacteria Few (FEW) /hpf Urine Mucus Few (FEW) /hpf Urine HCG, Qual Negative (NEGATIVE) Meds: Medications Discontinued Medications Generic Name Dose Route Start Last Admin Trade Name Freq PRN Reason Stop Dose Admin Sodium Chloride 1,000 mls @ 250 mls/hr 04/16/19 16:30 Normal Saline IV ASDIRECTED BEL Nitrofurantoin Macrocrystals 100 mg 04/16/19 18:42 04/16/19 19:15 Macrobid PO 04/16/19 18:43 100 mg ONETIME ONE Administration Sodium Chloride 10 ml 04/16/19 16:21 Saline Flush FLUSH ASDIRECTED PRN Keep Vein Open - Re-Assessments/Exams Free Text/Narrative Re-Assessment/Exam: Vital signs on examination: Blood pressure 132/86, heart rate 90, respiratory 15 , SPO2 97% on room air, temperature is 97.7F. IV will be established with normal saline. Initial labs and studies will include : CBC, chem 14, CRP, coag studies, UA, and hCG. She does have some pain to the right CVA with palpation. She has no history of kidney stones. We will wait for results of lab CT of the abdomen and pelvis may be required to further differentiate cause of discomfort. Nursing staff has attempted to access the port to the left chest four times with no success. Able to draw blood but unable to flush. Patient is a difficult IV stick. Will await for labs before initiating IV at that time. 04/16/19 17:50 Labs reviewed: CBC was essentially normal. Hemoglobin 12.1, platelet count 188, white blood cell count 6.89. PT 19.4, aPTT 43, INR 1.80. CMP was essentially normal minus glucose of 115, AST 92, total protein 6.1, and albumin 3.0. UA urine pH 8.5, 2+ occult blood, leukocyte Esterace one plus, urine rbc's 5-10 , and urine wbc's 10-20. Urine culture ordered. 04/16/19 18:32 I have discussed with the patient and of lab results and x-ray findings. Patient continues to have some mild pain to the right upper quadrant/flank region. I've offered to obtain a CT of the abdomen and pelvis to rule out kidney stone. Patient denies any increased frequency of urination, decrease amount, or history of kidney stones. In addition she has no worsening shortness of breath suggesting that she is experiencing a pulmonary infarct. She is not hypoxic nor tachycardic. Thus no further workup will be obtained at this time. She is on Lovenox. INR is elevated coming off the warfarin. Patient agrees. Return precautions were discussed with the patient and . They both their understanding. They will follow up with PCP this coming week after treatment of the UTI with Macrobid. Urine culture has been obtained and she'll be notified of antibiotic therapy needs to be changed. Patient had no further questions concerns. 04/16/19 19:10 I have spoken with the patient again. I do not feel safe sending the patient home with her extensive medical history. She has a positive UTI with right flank pain concerning for possible kidney stone present. If the kidney stone gets infected she is increased risk of developing pyelonephritis. We have come to the conclusion to go ahead and get the CT the abdomen and pelvis per renal stone protocol. In addition patient has multiple drug allergies and cannot take Levaquin, Cipro, Bactrim, Keflex, Rocephin, and also penicillins. 04/16/19 20:45 CT abdomen and pelvis impression: Nodular-appearing pleural based densities within the right lung as well as minimal pleural based density within the left lung base. As mentioned above, these are stable from previous CTs chest. Uncertain if this represents persistent change from previous pulmonary embolism or represents another etiology. As mentioned on prior CT chest study recommend repeat CT chest study recommended in 6 months. No ureteral dilatation or ureteral stone is seen. Several minimal calcifications bleed to be parenchymal and location within the left kidney. Nothing acute is appreciated on noncontrast CT study of the abdomen and pelvis. 2045 Discussed results of the CT study of the abdomen and pelvis with the patient. She has no complaints at this time. Discharge instructions as documented. Departure - Departure Time of Disposition: 19:00 Disposition: Home, Self-Care 01 Condition: Good Clinical Impression: UTI, Urinary tract infectious disease, Elevated INR, Elevated partial thromboplastin time (PTT) Hematuria Qualifiers: Hematuria type: other microscopic Qualified Code(s): R31.29 - Other microscopic hematuria - Discharge Information Prescriptions: Nitrofurantoin Monohyd/M-Cryst [Macrobid 100 mg Capsule] 100 mg PO BID #10 capsule Instructions: Urinary Tract Infection, Adult, Hematuria, Adult Referrals: Soheila Cooper MD [Primary Care Provider] - Forms: ED Department Discharge Additional Instructions: Continue with all home medications as prescribed. UA indicated you have a urinary tract infection. Treatment will consist of Macrobid 100 mg twice a day for the next 5 days. Please monitor for any new or worsening symptoms. If so return back to the ED as discussed immediately. Please follow up with PCP at conclusion of therapy to ensure resolution. In addition there was some blood within your urine from the UTI that should resolve with treatment. CT also visualized nodular appearing densities within the right lung and left lung base. Unclear if this is related to the pulmonary embolism. They recommended CT of the chest repeated in 6 months. Push the fluids. - My Orders Last 24 Hours: My Active Orders 04/16/19 16:21 Peripheral IV Care [RC] . DIRECTED 04/16/19 17:30 CULTURE URINE [RM] Stat - Assessment/Plan Last 24 Hours: My Active Orders 04/16/19 16:21 Peripheral IV Care [RC] . DIRECTED 04/16/19 17:30 CULTURE URINE [RM] Stat
[2019-04-16] MEDS ORDERED: Sodium Chloride 0.9% 10 ML Syringe FLUSH PRN (16:21)
[2019-04-16] MEDS ORDERED: Sodium Chloride 0.9% 1,000 ML IV SCH (16:30)
[2019-04-16] MEDS ORDERED: Nitrofurantoin Monohydrate/Macrocrystalline 100 MG Cap PO ONE (18:42)
--- NOTE | 2019-04-16 20:40 | CT ---
CT abdomen and pelvis Technique: Multiple axial sections were obtained from above the dome of the diaphragm inferiorly through the pubic symphysis. Intravenous and oral contrast not utilized. Study has been performed as a ureteral stone protocol. Comparison: Previous CT angiogram of the chest dated 03/25/19 showing the lung bases as well as previous abdominal and pelvic CT study of 12/20/17. Findings: Nodular appearing pleural-based densities are seen within the right lung base as well as minimal pleural-based density within the left lung base. These findings remain stable from prior CT exam of the chest of 03/25/19 not seen on prior abdominal CT showing the lung bases. Liver shows no focal abnormality. Spleen also shows no focal abnormality. Pancreas appears within normal limits. Surgical clips are seen from prior cholecystectomy. Adrenal glands contain no nodule. Kidneys show several minimal calcifications within the left kidney most likely parenchymal in location. No ureteral dilatation or ureteral stone is seen. Aorta shows no aneurysm. No retroperitoneal adenopathy or mesenteric abnormalities are seen. Appendix is seen which appears to be normal in size. No pelvic mass or adenopathy is seen. No free fluid or inflammatory change is seen. Bone window settings were reviewed which appear within normal limits for the patient's age. Impression: 1. Nodular appearing pleural-based densities within the right lung as well as minimal pleural-based density within left lung base. As mentioned above, these are stable from previous chest CT. Uncertain if this represents persistent change from previous pulmonary embolism or represents another etiology. As mentioned on prior chest CT, repeat chest CT study recommended in 6 months. 2. No ureteral dilatation or ureteral stone is seen. 3. Several minimal calcifications believed to be parenchymal in location within the left kidney. 4. Nothing acute is appreciated on noncontrast CT study of the abdomen and pelvis. Diagnostic code #9
== END 2019-04-16 21:03 | disposition home or self-care (01) ==
LOC: JD.ED 15:32
DX: R31.29 Other microscopic hematuria (principal); N39.0 Urinary tract infection, site not specified; R79.1 Abnormal coagulation profile; Z91.041 Radiographic dye allergy status; Z88.8 Allergy status to other drugs, medicaments and biological substances; Z88.5 Allergy status to narcotic agent; Z88.2 Allergy status to sulfonamides; Z79.899 Other long term (current) drug therapy; Z79.82 Long term (current) use of aspirin
CPT/HCPCS: 36415; 74176; 80053; 81001; 81025; 85007; 85027; 85610; 85730; 86140; 87086; 87088; 99284; A9270; 99283

== ENCOUNTER 2019-06-17 14:40 | Emergency (ER) | payer BC ==
--- NOTE | 2019-06-17 17:12 | EDM.PDOC ---
ED HPI GENERAL MEDICAL PROBLEM - General Chief Complaint: Abdominal Pain Stated Complaint: [facility] Time Seen by Provider: 06/17/19 16:49 Source of Information: Reports: Patient, Family (, mother) History Limitations: Reports: No Limitations - History of Present Illness INITIAL COMMENTS - FREE TEXT/NARRATIVE: The patient, who has a past medical history that includes Raimundo-Danlos, states that when straining on the toilet around 14:00 this afternoon, she felt a pop in her pelvis, followed by pelvic pain which radiated up into her abdomen. The pain has subsequently significantly subsided, and is now minimal. The patient denies having hematuria or body bowel movements. No prior similar symptoms. The patient's PCP is Dr. Soheila Cooper. Her [place] Technical Agronomist is Dr. Christopher Flor. Suprapubic Pain Score (Numeric/FACES): 6 - Related Data Allergies Allergy/AdvReac Type Severity Reaction Status Date / Time celecoxib [From Celebrex] Allergy Itching Verified 05/01/19 14:43 cephalexin Allergy Other Verified 05/01/19 14:43 codeine Allergy Rash Verified 05/01/19 14:43 gluten Allergy Other Verified 05/01/19 14:43 Iodinated Contrast Media Allergy Hives Verified 05/01/19 14:43 [Iodinated Contrast Media - IV Dye] lorazepam [From Ativan] Allergy Other Verified 05/01/19 14:43 rituximab [From Rituxan] Allergy Anaphylactic Verified 05/01/19 14:43 Shock albuterol AdvReac Hyperactivi Verified 05/01/19 14:43 ty Dairy Products AdvReac Diarrhea Verified 05/01/19 14:43 hydrocodone AdvReac Nausea Verified 05/01/19 14:43 hydromorphone [From Dilaudid] AdvReac Burning Verified 05/01/19 14:43 morphine AdvReac Burning Verified 05/01/19 14:43 soy AdvReac Abdominal Verified 05/01/19 14:43 Pain Sulfa (Sulfonamide AdvReac Confusion Verified 05/01/19 14:43 Antibiotics) tramadol AdvReac Confusion Verified 05/01/19 14:43 Bandaid Allergy Other Uncoded 05/01/19 14:43 morphine Allergy Anaphylactic Uncoded 05/01/19 14:43 Shock Home Meds: Home Meds Cromolyn Sodium [Nasalcrom] 1 spray NS QID PRN 08/01/18 [History] Hydrocortisone 10 mg PO DAILY 08/01/18 [History] Ascorbic Acid [Vitamin C] 500 mg PO QID 11/04/18 [History] Aspirin 81 mg PO DAILY 11/04/18 [History] Calcium Citrate 250 mg PO QID 11/04/18 [History] Calcium Carbonate/Vitamin D3 [Calcium 500 mg-Vit D3 600 Unit] 250 mg PO ASDIRECTED 02/20/19 [History] Cholecalciferol (Vitamin D3) [Vitamin D3] 1 tab PO BID 02/20/19 [History] Cromolyn Sodium 400 mg PO TID 02/20/19 [History] Desogestrel-Ethinyl Estradiol [Desogest-Eth Estra 0.15-0.03MG] 1 tab PO ASDIRECTED 02/20/19 [History] Hydrocortisone 5 mg PO DAILY 02/20/19 [History] Imatinib Mesylate 200 mg PO DAILY 02/20/19 [History] Ivabradine HCl [Corlanor] 5 mg PO BID 02/20/19 [History] Levomefolate Calcium [l-Methylfolate] 15 mg PO DAILY 02/20/19 [History] Midodrine 2.5 mg PO DAILY 02/20/19 [History] Montelukast [Singulair] 10 mg PO BID 02/20/19 [History] Naltrexone 1 mg PO QAM 02/20/19 [History] Ranitidine [Zantac] 150 mg PO BID 02/20/19 [History] hydrOXYzine HCl [hydrOXYzine] 25 mg PO QID 02/20/19 [History] Budesonide [Entocort EC] 3 mg PO ASDIRECTED PRN 03/25/19 [History] EPINEPHrine [Auvi-Q] 0.3 mg SUBCUT ASDIRECTED PRN 03/25/19 [History] Enoxaparin [Lovenox] 100 mg SQ Q12H #12 syringe 03/25/19 [Rx] Ibuprofen 200 - 400 mg PO ATDISCHARGE PRN 03/25/19 [History] Ketorolac [Toradol] 30 mg IM ASDIRECTED PRN 03/25/19 [History] Ketotifen [Ketotifen 0.025% Oph Soln] 2 mg PO TID 03/25/19 [History] Magnesium Glycinate [Magnesium Bisglycinate Chelate] 500 mg PO ASDIRECTED [History] Naltrexone 4 mg PO BEDTIME 03/25/19 [History] Neuroprotek Low Phenol. 6 tab PO DAILY 03/25/19 [History] Palmitoylethanolamide. 400 mg PO TID 03/25/19 [History] Promethazine [Phenergan] 25 mg PO ASDIRECTED PRN 03/25/19 [History] Sodium Chloride 1 gm PO ASDIRECTED PRN 03/25/19 [History] Sodium Chloride 0.9% [Normal Saline] 1,000 ml IV ASDIRECTED PRN 03/25/19 [ History] Thyroid,Pork [DOCUMENT CONTROLLER Thyroid] 30 mg PO DAILY 03/25/19 [History] diphenhydrAMINE [Benadryl] 25 - 50 mg IM DAILY PRN 03/25/19 [History] predniSONE [Prednisone] 20 - 40 mg PO ASDIRECTED PRN 03/25/19 [History] Pyridostigmine [Mestinon] 15 mg PO TID 05/22/19 [History] Past Medical History HEENT History: Reports: Other (See Below) (Tinnitus) Gastrointestinal History: Reports: Celiac Disease Genitourinary History: Reports: Other (See Below) (Interstitial cystitis) Musculoskeletal History: Reports: Other (See Below) (Raimundo Danlos syndrome. Craniocervical instability. Slight scoliosis.) Neurological History: Reports: Headaches, Chronic, Seizure, Other (See Below) ( Idiopathic small fiber neuropathy) Psychiatric History: Reports: Other (See Below) (Chronic fatigue syndrome, AKA myalgic encephalomyelitis. Fibromyalgia. Pseudoseizures.) Endocrine/Metabolic History: Reports: Hypothyroidism, Obesity/BMI 30+ Immunologic History: Reports: Other (See Below) (Mastocytosis) - Past Surgical History Cardiovascular Surgical History: Reports: Other (See Below) (Left Port-A-Cath) GI Surgical History: Reports: Cholecystectomy (2012) Social & Family History - Family History Family Medical History: Noncontributory - Tobacco Use Smoking Status *Q: Never Smoker - Caffeine Use Caffeine Use: Reports: Coffee - Alcohol Use Alcohol Use History: No - Recreational Drug Use Recreational Drug Use: No - Living Situation & Occupation Living situation: Reports: , with Spouse Occupation: Unemployed ED ROS GENERAL - Review of Systems Review Of Systems: ROS reveals no pertinent complaints other than HPI. ED EXAM, GENERAL - Physical Exam Exam: See Below Exam Limited By: No Limitations General Appearance: Alert, WD/WN, No Apparent Distress Eye Exam: Bilateral Eye: EOMI, Normal Inspection Ears: Normal External Exam, Hearing Grossly Normal Nose: Normal Inspection Throat/Mouth: Normal Inspection, Normal Lips, Normal Voice, No Airway Compromise Head: Atraumatic, Normocephalic Neck: Other (The patient wears a cervical collar at all times) Respiratory/Chest: No Respiratory Distress, Lungs Clear, Normal Breath Sounds, No Accessory Muscle Use Cardiovascular: Normal Peripheral Pulses, Regular Rate, Rhythm, No Gallop, No JVD, No Murmur, No Rub Peripheral Pulses: 4+: Radial (L), Radial (R) GI/Abdominal: Normal Bowel Sounds, Soft, No Organomegaly, No Distention, No Abnormal Bruit, No Mass, Tender (Minimal, to the left pelvis only. Nontender elsewhere.), Other (Obese) (Female) Exam: Deferred Rectal (Female) Exam: Deferred Back Exam: Normal Inspection, Full Range of Motion, NT Extremities: Normal Inspection, Normal Range of Motion, No Pedal Edema, Normal Capillary Refill Neurological: Alert, Oriented, Normal Cognition, No Motor/Sensory Deficits Psychiatric: Normal Affect Skin Exam: Warm, Dry, Intact, Normal Color, No Rash Course - Vital Signs Last Recorded V/S: Last Vital Signs Temp 36.4 C 06/17/19 17:20 Pulse 72 06/17/19 17:20 Resp 16 06/17/19 17:20 BP 104/69 06/17/19 17:20 Pulse Ox 98 06/17/19 17:20 - Re-Assessments/Exams Free Text/Narrative Re-Assessment/Exam: 06/17/19 17:05 It is possible that the patient ruptured a left ovarian cyst, although I think it more likely that she pulled a muscle while straining on the toilet, causing a muscle spasm which has since diminished considerably. At present, her abdominal exam finds only mild tenderness to her left pelvis, and is otherwise unremarkable. My clinical suspicion for a significant intra-abdominal process is very low. I discussed the option of obtaining a CT scan of her abdomen and pelvis, noting that it would likely show an abdominal wall hematoma, if one were present, but not show if she strained or tore a muscle. For that, an MRI would be better. The patient prefers the MRI. I will therefore have her follow- up with her PCP in the morning, who can then order an outpatient MRI if deemed appropriate. Because the patient's pain has diminished so much, she is not requesting any pain medication at this time. Departure - Departure Time of Disposition: 17:06 Disposition: Home, Self-Care 01 Condition: Good Clinical Impression: Abdominal wall strain - Discharge Information *PRESCRIPTION DRUG MONITORING PROGRAM REVIEWED*: Not Applicable *COPY OF PRESCRIPTION DRUG MONITORING REPORT IN PATIENT CADY: Not Applicable Instructions: Muscle Strain, [id number] Referrals: Soheila Cooper MD [Physician] - Forms: ED Department Discharge Additional Instructions: You were seen in the emergency room after feeling a pop in your pelvis and developing an abdominal wall spasm, while straining on the toilet. Based on your history and physical examination, you have most likely strained an abdominal wall muscle, although a ruptured ovarian cyst is also a possibility. As discussed, a CT scan of your abdomen and pelvis might show an abdominal wall hematoma, however, it would not likely show a muscle strain or tear. For that, an MRI would be better. We recommend that you follow-up with your PCP, Dr. Soheila Cooper, first thing tomorrow morning, will , 06/18/2019, to discuss the option of obtaining an MRI of your abdomen and pelvis. If any other problems, please do not hesitate to return to the ER.
[2019-06-17 17:27] VITALS: BP 104/69
== END 2019-06-17 17:20 | disposition home or self-care (01) ==
LOC: JD.ED 14:40
DX: S39.011A Strain of muscle, fascia and tendon of abdomen, initial encounter (principal); E03.9 Hypothyroidism, unspecified; E66.9 Obesity, unspecified; Z68.38 Body mass index [BMI] 38.0-38.9, adult; Z79.899 Other long term (current) drug therapy; Z79.82 Long term (current) use of aspirin; Z91.018 Allergy to other foods; Z88.8 Allergy status to other drugs, medicaments and biological substances; Z91.011 Allergy to milk products; Z88.5 Allergy status to narcotic agent; Z88.2 Allergy status to sulfonamides; Z88.6 Allergy status to analgesic agent; Z91.041 Radiographic dye allergy status; Z88.1 Allergy status to other antibiotic agents; X58.XXXA Exposure to other specified factors, initial encounter
CPT/HCPCS: 99284

== ENCOUNTER 2019-08-07 10:43 | Emergency (ER) | payer BC ==
[2019-08-07 11:12] VITALS: BP 147/87; PULSE 100
--- NOTE | 2019-08-07 11:49 | EDM.PDOC ---
ED HPI GENERAL MEDICAL PROBLEM - General Chief Complaint: Cardiovascular Problem Stated Complaint: TRANSFER FROM DAY SURGERY Time Seen by Provider: 08/07/19 11:20 Source of Information: Reports: Patient, Family () History Limitations: Reports: No Limitations - History of Present Illness INITIAL COMMENTS - FREE TEXT/NARRATIVE: Mrs. Alba is a very pleasant 29-year-old woman with numerous chronic medical issues, including Raimundo-Danlos syndrome, idiopathic small fiber neuropathy, myalgic encephalomyelitis, and mastocytosis, who receives a weekly infusion of Zofran, Benadryl, Ativan, and tramadol, every Saturday, as directed by her Box Icer in [place]. The patient was at the infusion center today, preparing to receive her infusion, when it was noted that her weight is up 6-7 pounds since last 07/31/2019. The patient's [place] PCP was contacted , and he instructed that the patient be brought to the ED for evaluation. Here in the ED, the patient is found to be hemodynamically stable, saturating 100% on room air. She denies having any respiratory difficulty, and while she reports a number of chronic symptoms, she denies any new symptoms, such as new fever, chills, cough, dyspnea, chest pain or discomfort, palpitations, nausea, vomiting, constipation, diarrhea, abdominal pain, bloody bowel movements or black bowel movements, joint aches, headaches, or rashes. She states that she has been experiencing both upper and lower extremity edema on and off for about one year, however, she states that it seems to be worse this month. The patient last saw her [place] PCP about one month ago. She was not started on a diuretic. The patient's [place] PCP is Dr. Morin. Her [place] Box Icer is Dr. Christopher Flor. Bilateral Leg Pain Score (Numeric/FACES): 10 - Related Data Allergies Allergy/AdvReac Type Severity Reaction Status Date / Time celecoxib [From Celebrex] Allergy Itching Verified 08/07/19 11:13 cephalexin Allergy Other Verified 08/07/19 11:13 codeine Allergy Rash Verified 08/07/19 11:13 gluten Allergy Other Verified 08/07/19 11:13 Iodinated Contrast Media Allergy Hives Verified 08/07/19 11:13 [Iodinated Contrast Media - IV Dye] lorazepam [From Ativan] Allergy Other Verified 08/07/19 13:18 rituximab [From Rituxan] Allergy Anaphylactic Verified 08/07/19 11:13 Shock albuterol AdvReac Hyperactivi Verified 08/07/19 11:13 ty Dairy Products AdvReac Diarrhea Verified 08/07/19 11:13 hydrocodone AdvReac Nausea Verified 08/07/19 11:13 hydromorphone [From Dilaudid] AdvReac Burning Verified 08/07/19 11:13 morphine AdvReac Burning Verified 08/07/19 11:13 soy AdvReac Abdominal Verified 08/07/19 11:13 Pain Sulfa (Sulfonamide AdvReac Confusion Verified 08/07/19 11:13 Antibiotics) tramadol AdvReac Confusion Verified 08/07/19 11:13 Bandaid Allergy Other Uncoded 05/01/19 14:43 morphine Allergy Anaphylactic Uncoded 05/01/19 14:43 Shock Home Meds: Home Meds Cromolyn Sodium [Nasalcrom] 1 spray NS QID PRN 08/01/18 [History] Hydrocortisone 10 mg PO DAILY 08/01/18 [History] Ascorbic Acid [Vitamin C] 500 mg PO QID 11/04/18 [History] Calcium Carbonate/Vitamin D3 [Calcium 500 mg-Vit D3 600 Unit] 1,000 mg PO DAILY 02/20/19 [History] Cholecalciferol (Vitamin D3) [Vitamin D3] 5,000 unit PO BID 02/20/19 [History] Cromolyn Sodium 400 mg PO TID 02/20/19 [History] Hydrocortisone 5 mg PO DAILY 02/20/19 [History] Imatinib Mesylate 300 mg PO DAILY 02/20/19 [History] Levomefolate Calcium [l-Methylfolate] 15 mg PO DAILY 02/20/19 [History] Midodrine 2.5 mg PO DAILY 02/20/19 [History] Montelukast [Singulair] 10 mg PO BID 02/20/19 [History] Naltrexone 1 mg PO QAM 02/20/19 [History] hydrOXYzine HCl [hydrOXYzine] 25 mg PO QID 02/20/19 [History] Budesonide [Entocort EC] 3 mg PO ASDIRECTED PRN 03/25/19 [History] EPINEPHrine [Auvi-Q] 0.3 mg SUBCUT ASDIRECTED PRN 03/25/19 [History] Ketorolac [Toradol] 15 mg IM ASDIRECTED PRN 03/25/19 [History] Ketotifen [Ketotifen 0.025% Ophth Soln] 2 mg PO TID 03/25/19 [History] Magnesium Glycinate [Magnesium Bisglycinate Chelate] 500 mg PO ASDIRECTED [History] Naltrexone 4 mg PO BEDTIME 03/25/19 [History] Neuroprotek Low Phenol. 6 tab PO DAILY 03/25/19 [History] Palmitoylethanolamide. 400 mg PO BID 03/25/19 [History] Promethazine [Phenergan] 25 mg PO ASDIRECTED PRN 03/25/19 [History] Sodium Chloride 1 gm PO ASDIRECTED PRN 03/25/19 [History] Sodium Chloride 0.9% [Normal Saline] 1,000 ml IV ASDIRECTED PRN 03/25/19 [ History] Thyroid,Pork [PHYSICAL DIRECTOR Thyroid] 30 mg PO DAILY 03/25/19 [History] diphenhydrAMINE [Benadryl] 25 - 50 mg IM DAILY PRN 03/25/19 [History] predniSONE [Prednisone] 20 - 40 mg PO ASDIRECTED PRN 03/25/19 [History] Pyridostigmine [Mestinon] 60 mg PO TID 05/22/19 [History] Carbidopa/Levodopa [Carbidopa-Levodopa 25-100 Tab] 25 - 100 mg PO BID 08/07/19 [ History] Cromoly Sodium Neb Solution 20 mg INH QID 08/07/19 [History] Cromolyn Eye Drops 2 drop EYEBOTH QID 08/07/19 [History] Cyclobenzaprine [Flexeril] 1 - 1.5 tab PO Q12HR PRN 08/07/19 [History] Ondansetron [Zofran] 4 mg PO TID 08/07/19 [History] Past Medical History HEENT History: Reports: Other (See Below) (Tinnitus) Other HEENT History: tinnitus Cardiovascular History: Reports: Other (See Below) (POTS = postural tachycardia syndrome) Respiratory History: Reports: PE (Apr 2019) Gastrointestinal History: Reports: Celiac Disease Genitourinary History: Reports: Other (See Below) (Interstitial cystitis) Musculoskeletal History: Reports: Other (See Below) (Raimundo Danlos syndrome. Craniocervical instability. Slight scoliosis.) Psychiatric History: Reports: Other (See Below) (Chronic fatigue syndrome, AKA myalgic encephalomyelitis. Fibromyalgia. Pseudoseizures.) Endocrine/Metabolic History: Reports: Hypothyroidism, Obesity/BMI 30+ Immunologic History: Reports: Other (See Below) (Mastocytosis) - Past Surgical History Cardiovascular Surgical History: Reports: Other (See Below) (Left Port-A-Cath) GI Surgical History: Reports: Cholecystectomy (2012) Social & Family History - Family History Family Medical History: Noncontributory - Tobacco Use Smoking Status *Q: Never Smoker - Caffeine Use Caffeine Use: Reports: Coffee - Alcohol Use Alcohol Use History: No - Recreational Drug Use Recreational Drug Use: No - Living Situation & Occupation Living situation: Reports: , with Spouse Occupation: Unemployed ED ROS GENERAL - Review of Systems Review Of Systems: ROS reveals no pertinent complaints other than HPI. Neurological: Reports: Headache (chronic) ED EXAM, GENERAL - Physical Exam Exam: See Below Exam Limited By: No Limitations General Appearance: Alert, WD/WN, No Apparent Distress Eye Exam: Bilateral Eye: EOMI, Normal Inspection Ears: Normal External Exam, Hearing Grossly Normal Nose: Normal Inspection Throat/Mouth: Normal Voice, No Airway Compromise, Other (Patient wearing personal face mask) Head: Atraumatic, Normocephalic Neck: Normal Inspection, Full Range of Motion Respiratory/Chest: No Respiratory Distress, Lungs Clear, Normal Breath Sounds, No Accessory Muscle Use. No: Decreased Breath Sounds, Crackles, Rhonchi, Wheezing, Stridor, Prolonged Expiration Cardiovascular: Normal Peripheral Pulses, Regular Rate, Rhythm, No Gallop, No JVD, No Murmur, No Rub Peripheral Pulses: 4+: Radial (L), Radial (R) GI/Abdominal: Normal Bowel Sounds, Soft, Non-Tender, No Organomegaly, No Distention, No Abnormal Bruit, No Mass (Female) Exam: Deferred Rectal (Female) Exam: Deferred Extremities: Normal Inspection, Non-Tender, Normal Capillary Refill, Other ( Trace to 1+ pitting edema to the dorsal aspect of both feet, but no pretibial pitting edema to either lower extremity, or to either upper extremity.) Neurological: Alert, Oriented, Normal Cognition, No Motor/Sensory Deficits Psychiatric: Normal Affect Skin Exam: Warm, Dry, Intact, Normal Color, No Rash Course - Vital Signs Last Recorded V/S: Last Vital Signs Temp 36.9 C 08/07/19 11:05 Pulse 100 08/07/19 11:05 Resp 18 08/07/19 11:05 BP 147/87 H 08/07/19 11:05 Pulse Ox 100 08/07/19 11:05 - Re-Assessments/Exams Free Text/Narrative Re-Assessment/Exam: 08/07/19 11:48 On examination, I do not find significant edema. There is perhaps 1+ pitting edema to the dorsal aspect of both of her feet, but not even trace edema to her bilateral lower extremities, and none to her bilateral upper extremities. She is not in any respiratory distress, and, indeed, her oxygen saturation is 100% on room air. Case discussed with Dr. Morin at 11:46. He stated that he sent the patient to the ED to make sure the patient was fit to receive the infusion, and since she appears to be, we agreed that she may return to day surgery to get her usual weekly infusion. 08/07/19 11:52 Notified that the patient's PTT is 38.2 and her INR is 3.78. I did not order any labs; these test results must be from day surgery. Reviewing prior coagulation labs, however, I see that the patient's INR is always elevated, typically around 3, but with some earlier results as high as 6.18. I don't see on the patient's medication list that she is on Coumadin, therefore it is not immediately clear why her INR runs high. 08/07/19 11:57 The above was discussed with the patient and her . It turns out that the patient is on Coumadin, following a pulmonary embolus diagnosed in April, but her medication list has not yet been updated. The patient stated that she and her were already contacted by the Coumadin clinic, and a plan to adjust her Coumadin is already in place. Departure - Departure Time of Disposition: 11:58 Disposition: Home, Self-Care 01 Condition: Good Clinical Impression: Weight gain, Supratherapeutic INR - Discharge Information *PRESCRIPTION DRUG MONITORING PROGRAM REVIEWED*: Not Applicable *COPY OF PRESCRIPTION DRUG MONITORING REPORT IN PATIENT CADY: Not Applicable Referrals: Tito Morin MD [Primary Care Provider] - Forms: ED Department Discharge Additional Instructions: You were seen in the emergency room over concern of a 6-7 pound weight gain over the past week. On examination in the ER, no significant edema/swelling was found. Your case was discussed with your PCP, Dr. Tito Morin, who recommended that you can proceed with your weekly infusion. We were notified that your INR was elevated, however, you notified us that the Coumadin clinic already has a plan to adjust your Coumadin. If any other problems, please do not hesitate to return to the ER.
== END 2019-08-07 12:17 | disposition home or self-care (01) ==
LOC: SUPCPDRO 10:43 → JD.ED 10:43
DX: R79.1 Abnormal coagulation profile (principal); E66.9 Obesity, unspecified; E03.9 Hypothyroidism, unspecified; Z88.6 Allergy status to analgesic agent; Z88.1 Allergy status to other antibiotic agents; Z88.5 Allergy status to narcotic agent; Z88.2 Allergy status to sulfonamides; Z91.018 Allergy to other foods; Z91.041 Radiographic dye allergy status; Z91.048 Other nonmedicinal substance allergy status; Z88.8 Allergy status to other drugs, medicaments and biological substances; Z91.011 Allergy to milk products; Z79.890 Hormone replacement therapy; Z79.899 Other long term (current) drug therapy; Z86.711 Personal history of pulmonary embolism
CPT/HCPCS: 99284

== ENCOUNTER 2020-08-19 16:53 | Emergency (ER) | payer MEDICARE ==
[2020-08-19 17:11] VITALS: BP 135/124; PULSE 86
--- NOTE | 2020-08-19 17:52 | EDM.PDOC ---
ED HPI GENERAL MEDICAL PROBLEM - General Chief Complaint: General Stated Complaint: SOB,FEVER AND SORE THROAT BODY ACHES Time Seen by Provider: 08/19/20 17:22 Source of Information: Reports: Patient, RN Notes Reviewed History Limitations: Reports: No Limitations - History of Present Illness INITIAL COMMENTS - FREE TEXT/NARRATIVE: Patient is a 30-year-old female who presents to the ED for evaluation of body chills, body aches, sore throat and worsening shortness of breath. Patient notes that she has multiple comorbidities, but everything seems to be just a little bit worse than her normal baseline. She is also complaining of the loss of her sense of taste. She states this is gradually gotten worse in the last week. She notes that her mother's friend tested positive for Covid yesterday, and she may have had some cross exposure from her mother earlier this week. 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 Patient has not had a temperature and is remains afebrile at 97.0 F. O2 sats are 99% on room air, and she is in no visible respiratory distress. Patient states that she is homebound, and she has not been around anyone that is been known to be sick. - Related Data Allergies Allergy/AdvReac Type Severity Reaction Status Date / Time celecoxib [From Celebrex] Allergy Itching Verified 08/07/19 11:13 cephalexin Allergy Other Verified 08/07/19 11:13 codeine Allergy Rash Verified 08/07/19 11:13 gluten Allergy Other Verified 08/07/19 11:13 Iodinated Contrast Media Allergy Hives Verified 08/07/19 11:13 [Iodinated Contrast Media - IV Dye] lorazepam [From Ativan] Allergy Other Verified 08/07/19 13:18 rituximab [From Rituxan] Allergy Anaphylactic Verified 08/07/19 11:13 Shock Dairy Products AdvReac Severe Diarrhea Verified 08/19/20 17:11 albuterol AdvReac Hyperactivi Verified 08/07/19 11:13 ty hydrocodone AdvReac Nausea Verified 08/07/19 11:13 hydromorphone [From Dilaudid] AdvReac Burning Verified 08/07/19 11:13 morphine AdvReac Burning Verified 08/07/19 11:13 soy AdvReac Abdominal Verified 08/07/19 11:13 Pain Sulfa (Sulfonamide AdvReac Confusion Verified 08/07/19 11:13 Antibiotics) tramadol AdvReac Confusion Verified 08/07/19 11:13 Bandaid Allergy Other Uncoded 05/01/19 14:43 morphine Allergy Anaphylactic Uncoded 05/01/19 14:43 Shock Home Meds: Home Meds Cromolyn Sodium [Nasalcrom] 1 spray NS QID PRN 08/01/18 [History] Hydrocortisone 10 mg PO DAILY 08/01/18 [History] Ascorbic Acid [Vitamin C] 500 mg PO QID 11/04/18 [History] Calcium Carbonate/Vitamin D3 [Calcium 500 mg-Vit D3 600 Unit] 1,000 mg PO DAILY 02/20/19 [History] Cholecalciferol (Vitamin D3) [Vitamin D3] 5,000 unit PO BID 02/20/19 [History] Cromolyn Sodium 400 mg PO TID 02/20/19 [History] Hydrocortisone 5 mg PO DAILY 02/20/19 [History] Imatinib Mesylate 300 mg PO DAILY 02/20/19 [History] Levomefolate Calcium [l-Methylfolate] 15 mg PO DAILY 02/20/19 [History] Midodrine 2.5 mg PO DAILY 02/20/19 [History] Montelukast [Singulair] 10 mg PO BID 02/20/19 [History] Naltrexone 1 mg PO QAM 02/20/19 [History] hydrOXYzine HCL [hydrOXYzine] 25 mg PO QID 02/20/19 [History] Budesonide [Entocort EC] 3 mg PO ASDIRECTED PRN 03/25/19 [History] EPINEPHrine [Auvi-Q] 0.3 mg SUBCUT ASDIRECTED PRN 03/25/19 [History] Ketorolac [Toradol] 15 mg IM ASDIRECTED PRN 03/25/19 [History] Ketotifen [Ketotifen 0.025% Ophth Soln] 2 mg PO TID 03/25/19 [History] Magnesium Glycinate [Magnesium Bisglycinate Chelate] 500 mg PO ASDIRECTED 03/25/19 [History] Naltrexone 4 mg PO BEDTIME 03/25/19 [History] Neuroprotek Low Phenol. 6 tab PO DAILY 03/25/19 [History] Palmitoylethanolamide. 400 mg PO BID 03/25/19 [History] Promethazine [Phenergan] 25 mg PO ASDIRECTED PRN 03/25/19 [History] Sodium Chloride 1 gm PO ASDIRECTED PRN 03/25/19 [History] Sodium Chloride 0.9% [Normal Saline] 1,000 ml IV ASDIRECTED PRN 03/25/19 [History] Thyroid,Pork [SPINNER FIXER Thyroid] 30 mg PO DAILY 03/25/19 [History] diphenhydrAMINE [Benadryl] 25 - 50 mg IM DAILY PRN 03/25/19 [History] predniSONE [Prednisone] 20 - 40 mg PO ASDIRECTED PRN 03/25/19 [History] Pyridostigmine [Mestinon] 60 mg PO TID 05/22/19 [History] Carbidopa/Levodopa [Carbidopa-Levodopa 25-100 Tab] 25 - 100 mg PO BID 08/07/19 [History] Cromoly Sodium Neb Solution 20 mg INH QID 08/07/19 [History] Cromolyn Eye Drops 2 drop EYEBOTH QID 08/07/19 [History] Cyclobenzaprine [Flexeril] 1 - 1.5 tab PO Q12HR PRN 08/07/19 [History] Ondansetron [Zofran] 4 mg PO TID 08/07/19 [History] Past Medical History HEENT History: Reports: Other (See Below) Other HEENT History: tinnitus Cardiovascular History: Reports: Other (See Below) Other Cardiovascular History: mahmood Respiratory History: Reports: PE Gastrointestinal History: Reports: Celiac Disease Genitourinary History: Reports: Other (See Below) Other Genitourinary History: interstitial cystitis Musculoskeletal History: Reports: Other (See Below) Other Musculoskeletal History: scoliosis Neurological History: Reports: Headaches, Chronic, Seizure, Other (See Below) Other Neuro History: autonomic seizures, cfids, cranio-cervical instability Endocrine/Metabolic History: Reports: Hypothyroidism, Obesity/BMI 30+ Hematologic History: Reports: Other (See Below) Other Hematologic History: EDS, mecasts syndrome, small fiber neuropathy, mast cell activation disorder - Infectious Disease History Infectious Disease History: Reports: Other (See Below) (chlamydia) - Past Surgical History GI Surgical History: Reports: Cholecystectomy Social & Family History - Family History Family Medical History: Noncontributory - Tobacco Use Tobacco Use Status *Q: Never Tobacco User - Caffeine Use Caffeine Use: Reports: Coffee - Living Situation & Occupation Living situation: Reports: , with Spouse Occupation: Unemployed ED ROS GENERAL - Review of Systems Review Of Systems: Comprehensive ROS is negative, except as noted in HPI. ED EXAM, GENERAL - Physical Exam Exam: See Below Exam Limited By: No Limitations General Appearance: Alert, WD/WN, No Apparent Distress Respiratory/Chest: No Respiratory Distress, Lungs Clear, Normal Breath Sounds, No Accessory Muscle Use, Chest Non-Tender Cardiovascular: Normal Peripheral Pulses, Regular Rate, Rhythm, No Murmur Peripheral Pulses: 2+: Radial (L), Radial (R) GI/Abdominal: Normal Bowel Sounds, Soft, Non-Tender, No Distention, No Mass Neurological: Alert, Oriented, Normal Cognition Psychiatric: Normal Affect, Normal Mood Skin Exam: Warm, Dry, Intact, Normal Color, No Rash Course - Vital Signs Last Recorded V/S: Last Vital Signs Temp 97.0 F 08/19/20 17:04 Pulse 86 08/19/20 17:04 Resp 16 08/19/20 17:04 BP 135/124 H 08/19/20 17:04 Pulse Ox 98 08/19/20 17:04 - Orders/Labs/Meds Orders: Active Orders 24 hr Category Date Time Status CORONAVIRUS COVID-19 PCR PHL Stat Lab 08/19/20 17:43 Ordered CULTURE STREP A CONFIRMATION [RM] Stat Lab 08/19/20 18:00 Results STREP SCRN A RAPID W CULT CONF [RM] Stat Lab 08/19/20 17:43 Ordered Isolation [COMM] Routine Oth 08/19/20 17:44 Ordered - Re-Assessments/Exams Free Text/Narrative Re-Assessment/Exam: 08/19/20 17:52 Patient presents to the ED for the evaluation of her ongoing illness. We will do a state send out for COVID-19, obtain a strep swab, along with a influenza swab as well for evaluation. Patient is okay with this plan at this time. 08/19/20 18:33 The patient's flu swab and strep swab are negative at today's visit. Patient was discharged home with general recommendations. Departure - Departure Time of Disposition: 18:33 Disposition: Home, Self-Care 01 Condition: Good Clinical Impression: Suspected 2019 novel coronavirus infection - Discharge Information *PRESCRIPTION DRUG MONITORING PROGRAM REVIEWED*: No *COPY OF PRESCRIPTION DRUG MONITORING REPORT IN PATIENT CADY: No Instructions: Contact Precautions, [id number] Referrals: Tito Morin MD [Primary Care Provider] - Forms: ED Department Discharge Additional Instructions: ED HPI GENERAL MEDICAL PROBLEM - General Chief Complaint: General Stated Complaint: SOB,FEVER AND SORE THROAT BODY ACHES Time Seen by Provider: 08/19/20 17:22 Source of Information: Reports: Patient, RN Notes Reviewed History Limitations: Reports: No Limitations - History of Present Illness INITIAL COMMENTS - FREE TEXT/NARRATIVE: Patient is a 30-year-old female who presents to the ED for evaluation of body chills, body aches, sore throat and worsening shortness of breath. Patient notes that she has multiple comorbidities, but everything seems to be just a little bit worse than her normal baseline. She is also complaining of the loss of her sense of taste. She states this is gradually gotten worse in the last week. She notes that her mother's friend tested positive for Covid yesterday, and she may have had some cross exposure from her mother earlier this week. 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 Patient has not had a temperature and is remains afebrile at 97.0 F. O2 sats are 99% on room air, and she is in no visible respiratory distress. Patient states that she is homebound, and she has not been around anyone that is been known to be sick. - Related Data Allergies Allergy/AdvReac Type Severity Reaction Status Date / Time celecoxib [From Celebrex] Allergy Itching Verified 08/07/19 11:13 cephalexin Allergy Other Verified 08/07/19 11:13 codeine Allergy Rash Verified 08/07/19 11:13 gluten Allergy Other Verified 08/07/19 11:13 Iodinated Contrast Media Allergy Hives Verified 08/07/19 11:13 [Iodinated Contrast Media - IV Dye] lorazepam [From Ativan] Allergy Other Verified 08/07/19 13:18 rituximab [From Rituxan] Allergy Anaphylactic Verified 08/07/19 11:13 Shock Dairy Products AdvReac Severe Diarrhea Verified 08/19/20 17:11 albuterol AdvReac Hyperactivi Verified 08/07/19 11:13 ty hydrocodone AdvReac Nausea Verified 08/07/19 11:13 hydromorphone [From Dilaudid] AdvReac Burning Verified 08/07/19 11:13 morphine AdvReac Burning Verified 08/07/19 11:13 soy AdvReac Abdominal Verified 08/07/19 11:13 Pain Sulfa (Sulfonamide AdvReac Confusion Verified 08/07/19 11:13 Antibiotics) tramadol AdvReac Confusion Verified 08/07/19 11:13 Bandaid Allergy Other Uncoded 05/01/19 14:43 morphine Allergy Anaphylactic Uncoded 05/01/19 14:43 Shock Home Meds: Home Meds Cromolyn Sodium [Nasalcrom] 1 spray NS QID PRN 08/01/18 [History] Hydrocortisone 10 mg PO DAILY 08/01/18 [History] Ascorbic Acid [Vitamin C] 500 mg PO QID 11/04/18 [History] Calcium Carbonate/Vitamin D3 [Calcium 500 mg-Vit D3 600 Unit] 1,000 mg PO DAILY 02/20/19 [History] Cholecalciferol (Vitamin D3) [Vitamin D3] 5,000 unit PO BID 02/20/19 [History] Cromolyn Sodium 400 mg PO TID 02/20/19 [History] Hydrocortisone 5 mg PO DAILY 02/20/19 [History] Imatinib Mesylate 300 mg PO DAILY 02/20/19 [History] Levomefolate Calcium [l-Methylfolate] 15 mg PO DAILY 02/20/19 [History] Midodrine 2.5 mg PO DAILY 02/20/19 [History] Montelukast [Singulair] 10 mg PO BID 02/20/19 [History] Naltrexone 1 mg PO QAM 02/20/19 [History] hydrOXYzine HCL [hydrOXYzine] 25 mg PO QID 02/20/19 [History] Budesonide [Entocort EC] 3 mg PO ASDIRECTED PRN 03/25/19 [History] EPINEPHrine [Auvi-Q] 0.3 mg SUBCUT ASDIRECTED PRN 03/25/19 [History] Ketorolac [Toradol] 15 mg IM ASDIRECTED PRN 03/25/19 [History] Ketotifen [Ketotifen 0.025% Ophth Soln] 2 mg PO TID 03/25/19 [History] Magnesium Glycinate [Magnesium Bisglycinate Chelate] 500 mg PO ASDIRECTED 03/25/19 [History] Naltrexone 4 mg PO BEDTIME 03/25/19 [History] Neuroprotek Low Phenol. 6 tab PO DAILY 03/25/19 [History] Palmitoylethanolamide. 400 mg PO BID 03/25/19 [History] Promethazine [Phenergan] 25 mg PO ASDIRECTED PRN 03/25/19 [History] Sodium Chloride 1 gm PO ASDIRECTED PRN 03/25/19 [History] Sodium Chloride 0.9% [Normal Saline] 1,000 ml IV ASDIRECTED PRN 03/25/19 [History] Thyroid,Pork [SPINNER FIXER Thyroid] 30 mg PO DAILY 03/25/19 [History] diphenhydrAMINE [Benadryl] 25 - 50 mg IM DAILY PRN 03/25/19 [History] predniSONE [Prednisone] 20 - 40 mg PO ASDIRECTED PRN 03/25/19 [History] Pyridostigmine [Mestinon] 60 mg PO TID 05/22/19 [History] Carbidopa/Levodopa [Carbidopa-Levodopa 25-100 Tab] 25 - 100 mg PO BID 08/07/19 [History] Cromoly Sodium Neb Solution 20 mg INH QID 08/07/19 [History] Cromolyn Eye Drops 2 drop EYEBOTH QID 08/07/19 [History] Cyclobenzaprine [Flexeril] 1 - 1.5 tab PO Q12HR PRN 08/07/19 [History] Ondansetron [Zofran] 4 mg PO TID 08/07/19 [History] Past Medical History HEENT History: Reports: Other (See Below) Other HEENT History: tinnitus Cardiovascular History: Reports: Other (See Below) Other Cardiovascular History: mahmood Respiratory History: Reports: PE Gastrointestinal History: Reports: Celiac Disease Genitourinary History: Reports: Other (See Below) Other Genitourinary History: interstitial cystitis Musculoskeletal History: Reports: Other (See Below) Other Musculoskeletal History: scoliosis Neurological History: Reports: Headaches, Chronic, Seizure, Other (See Below) Other Neuro History: autonomic seizures, cfids, cranio-cervical instability Endocrine/Metabolic History: Reports: Hypothyroidism, Obesity/BMI 30+ Hematologic History: Reports: Other (See Below) Other Hematologic History: EDS, mecasts syndrome, small fiber neuropathy, mast cell activation disorder - Infectious Disease History Infectious Disease History: Reports: Other (See Below) (chlamydia) - Past Surgical History GI Surgical History: Reports: Cholecystectomy Social & Family History - Family History Family Medical History: Noncontributory - Tobacco Use Tobacco Use Status *Q: Never Tobacco User - Caffeine Use Caffeine Use: Reports: Coffee - Living Situation & Occupation Living situation: Reports: , with Spouse Occupation: Unemployed ED ROS GENERAL - Review of Systems Review Of Systems: Comprehensive ROS is negative, except as noted in HPI. ED EXAM, GENERAL - Physical Exam Exam: See Below Exam Limited By: No Limitations General Appearance: Alert, WD/WN, No Apparent Distress Respiratory/Chest: No Respiratory Distress, Lungs Clear, Normal Breath Sounds, No Accessory Muscle Use, Chest Non-Tender Cardiovascular: Normal Peripheral Pulses, Regular Rate, Rhythm, No Murmur Peripheral Pulses: 2+: Radial (L), Radial (R) GI/Abdominal: Normal Bowel Sounds, Soft, Non-Tender, No Distention, No Mass Neurological: Alert, Oriented, Normal Cognition Psychiatric: Normal Affect, Normal Mood Skin Exam: Warm, Dry, Intact, Normal Color, No Rash Course - Vital Signs Last Recorded V/S: Last Vital Signs Temp 97.0 F 08/19/20 17:04 Pulse 86 08/19/20 17:04 Resp 16 08/19/20 17:04 BP 135/124 H 08/19/20 17:04 Pulse Ox 98 08/19/20 17:04 - Orders/Labs/Meds Orders: Active Orders 24 hr Category Date Time Status CORONAVIRUS COVID-19 PCR PHL Stat Lab 08/19/20 17:43 Ordered CULTURE STREP A CONFIRMATION [RM] Stat Lab 08/19/20 18:00 Results STREP SCRN A RAPID W CULT CONF [RM] Stat Lab 08/19/20 17:43 Ordered Isolation [COMM] Routine Oth 08/19/20 17:44 Ordered - Re-Assessments/Exams Free Text/Narrative Re-Assessment/Exam: 08/19/20 17:52 Patient presents to the ED for the evaluation of her ongoing illness. We will do a state send out for COVID-19, obtain a strep swab, along with a influenza swab as well for evaluation. Patient is okay with this plan at this time. 08/19/20 18:33 The patient's flu swab and strep swab are negative at today's visit. Patient was discharged home with general recommendations. Departure - Departure Time of Disposition: 18:33 Disposition: Home, Self-Care 01 Condition: Good Clinical Impression: Suspected 2019 novel coronavirus infection - Discharge Information *PRESCRIPTION DRUG MONITORING PROGRAM REVIEWED*: No *COPY OF PRESCRIPTION DRUG MONITORING REPORT IN PATIENT CADY: No Instructions: Contact Precautions, [id number] Referrals: Tito Morin MD [Primary Care Provider] - Forms: ED Department Discharge Sepsis Event Note (ED) - Evaluation Sepsis Screening Result: No Definite Risk - Focused Exam Vital Signs: Vital Signs Temp Pulse Resp BP Pulse Ox 08/19/20 17:04 97.0 F 86 16 135/124 H 98 - My Orders Last 24 Hours: My Active Orders 08/19/20 17:43 CORONAVIRUS COVID-19 PCR PHL Stat STREP SCRN A RAPID W CULT CONF [RM] Stat 08/19/20 17:44 Isolation [COMM] Routine 08/19/20 18:00 CULTURE STREP A CONFIRMATION [RM] Stat - Assessment/Plan Last 24 Hours: My Active Orders 08/19/20 17:43 CORONAVIRUS COVID-19 PCR PHL Stat STREP SCRN A RAPID W CULT CONF [RM] Stat 08/19/20 17:44 Isolation [COMM] Routine 08/19/20 18:00 CULTURE STREP A CONFIRMATION [RM] Stat You were seen in the ER today for ongoing and/or worsening respiratory symptoms. Your oxygen levels were great at 99% on room air. Your influenza swab was negative, your strep swab was negative At this time we did test you for COVID-19. We ask that you self-quarantine and limit your exposure to others until you receive your results from the state. You have been given a work note to reflect this. Swabs are sent from this facility on a daily basis, at 2:30 PM, you should expect up to 3-5 business days for positive or negative results. However you may receive results earlier than this. We are doing our best to call as soon as we get results from the [place] de[facility]. Please try to increase your oral fluid intake, and eat multiple small meals throughout the day, to keep yourself healthy. You need to keep yourself nourished in order to fight off this disease. You can try a liquid diet like gatorade/powerade as well to get your electrolytes. You may take 500 mg Tylenol every hours 6 hours for pain/fever relief. Do not exceed 4000 mg Tylenol in a 24-hour time span. However, running a fever is your body's natural response to illness, and it allows the body to develop antibodies to disease, we are recommending trying to limit the use of Tylenol as much as possible to allow your body's natural immune response. Recommend you obtain a pulse oximeter and monitor your oxygen levels at home, you should place the monitor on your finger, and sit in a calm, quiet position for a few minutes and then record the number that is on the screen. If this consistently below 90% on room air without movement, this would be cause for concern to come back to the hospital for further management of your COVID-19 disease. Care Plan Goals: You were seen in the ER today for ongoing and/or worsening respiratory symptoms. Your oxygen levels were great at 99% on room air. Your influenza swab was negative, your strep swab was negative, however this will be sent for culture to make sure that we did not miss it on the initial swab as this is not a perfect test. You will be called in 24 to 48 hours if you should need a course of antibiotics for this. At this time we did test you for COVID-19. We ask that you self-quarantine and limit your exposure to others until you receive your results from the state. You have been given a work note to reflect this. Swabs are sent from this facility on a daily basis, at 2:30 PM, you should expect up to 3-5 business days for positive or negative results. However you may receive results earlier than this. We are doing our best to call as soon as we get results from the [place] [facility]. Please try to increase your oral fluid intake, and eat multiple small meals throughout the day, to keep yourself healthy. You need to keep yourself nourished in order to fight off this disease. You can try a liquid diet like gatorade/powerade as well to get your electrolytes. You may take 500 mg Tylenol every hours 6 hours for pain/fever relief. Do not exceed 4000 mg Tylenol in a 24-hour time span. However, running a fever is your body's natural response to illness, and it allows the body to develop antibodies to disease, we are recommending trying to limit the use of Tylenol as much as possible to allow your body's natural immune response. Recommend you obtain a pulse oximeter and monitor your oxygen levels at home, you should place the monitor on your finger, and sit in a calm, quiet position for a few minutes and then record the number that is on the screen. If this consistently below 90% on room air without movement, this would be cause for concern to come back to the hospital for further management of your COVID-19 disease. Sepsis Event Note (ED) - Evaluation Sepsis Screening Result: No Definite Risk - Focused Exam Vital Signs: Vital Signs Temp Pulse Resp BP Pulse Ox 08/19/20 17:04 97.0 F 86 16 135/124 H 98 - My Orders Last 24 Hours: My Active Orders 08/19/20 17:43 CORONAVIRUS COVID-19 PCR PHL Stat STREP SCRN A RAPID W CULT CONF [RM] Stat 08/19/20 17:44 Isolation [COMM] Routine 08/19/20 18:00 CULTURE STREP A CONFIRMATION [RM] Stat - Assessment/Plan Last 24 Hours: My Active Orders 08/19/20 17:43 CORONAVIRUS COVID-19 PCR PHL Stat STREP SCRN A RAPID W CULT CONF [RM] Stat 08/19/20 17:44 Isolation [COMM] Routine 08/19/20 18:00 CULTURE STREP A CONFIRMATION [RM] Stat
== END 2020-08-19 19:06 | disposition home or self-care (01) ==
LOC: JD.ED 16:53
DX: J02.9 Acute pharyngitis, unspecified (principal); M41.9 Scoliosis, unspecified; E03.9 Hypothyroidism, unspecified; R56.9 Unspecified convulsions; E66.9 Obesity, unspecified; Z68.41 Body mass index [BMI] 40.0-44.9, adult; Z20.828 Contact with and (suspected) exposure to other viral communicable diseases; Z88.8 Allergy status to other drugs, medicaments and biological substances; Z88.5 Allergy status to narcotic agent; Z91.041 Radiographic dye allergy status; Z91.011 Allergy to milk products; Z91.048 Other nonmedicinal substance allergy status; Z88.2 Allergy status to sulfonamides; Z79.899 Other long term (current) drug therapy
CPT/HCPCS: 87081; 87430; 87804; 99284; U0002

== ENCOUNTER 2023-09-02 15:28 | Emergency (ER) | payer MEDICARE, MEDICAID ==
[2023-09-02 18:03] VITALS: BP 150/75; PULSE 76
== END 2023-09-02 17:45 | disposition home or self-care (01) ==
LOC: JD.ED 15:28
DX: R25.2 Cramp and spasm (principal); E03.9 Hypothyroidism, unspecified; E66.9 Obesity, unspecified; Z68.42 Body mass index [BMI] 45.0-49.9, adult; Z88.1 Allergy status to other antibiotic agents; Z88.5 Allergy status to narcotic agent; Z91.018 Allergy to other foods; Z91.041 Radiographic dye allergy status; Z88.8 Allergy status to other drugs, medicaments and biological substances; Z91.011 Allergy to milk products; Z88.2 Allergy status to sulfonamides; Z91.048 Other nonmedicinal substance allergy status; Z79.899 Other long term (current) drug therapy
CPT/HCPCS: 93971-26-RT; 93971-RT; 99282; 99283

== ENCOUNTER 2024-09-26 14:52 | Emergency (ER) | payer MEDICARE, MEDICAID ==
[2024-09-26] MEDS ORDERED: Sodium Chloride 0.9% 10 ML Syringe FLUSH PRN (15:27)
[2024-09-26] MEDS ORDERED: Sodium Chloride 0.9% 1,000 ML IV SCH (15:30)
[2024-09-26 16:01] VITALS: PULSE 139
[2024-09-26 16:04] LABS: APPEARANCE,URINE CLEAR (Clear); BILIRUBIN,URINE NEGATIVE (Negative); COLOR,URINE YELLOW (Yellow); GLUCOSE,URINE NEGATIVE (Negative); KETONES,URINE NEGATIVE (Negative); LEUKOCYTE ESTERASE,URINE NEGATIVE (Negative); NITRITE,URINE NEGATIVE (Negative); OCCULT BLOOD,URINE NEGATIVE (Negative); PROTEIN,URINE NEGATIVE (Negative); UROBILINOGEN,URINE 0.2 (0.2-1.0)
[2024-09-26] MEDS: Hydrocortisone Sodium Succinate 100 MG/2 ML SDV IVPUSH ONE (16:44)
[2024-09-26] MEDS: Sodium Chloride 0.9% 3,000 ML IV SCH (16:44)
[2024-09-26] MEDS: Sodium Chloride 0.9% 10 ML Syringe FLUSH PRN (16:45)
[2024-09-26 16:50] LABS: BASOPHILS PERCENT AUTO 0.3 % (0.0-1.0); EOSINOPHILS ABSOLUTE AUTO 0.1 K/mm3 (0.0-0.4); EOSINOPHILS PERCENT AUTO 1.3 % (0.0-6.0); HEMATOCRIT 42.7 % (37.0-47.0); HEMOGLOBIN 13.9 gm/dl (12.0-16.0); IMMATURE GRAN ABSOLUTE AUTO 0.01 K/mm3 (0.00-0.05); IMMATURE GRAN PERCENT AUTO 0.3 % (0.0-0.4); LYMPHOCYTES ABSOLUTE AUTO 0.5 K/mm3 (1.0-4.8); LYMPHOCYTES PERCENT AUTO 12.8 % (24.0-44.0); MEAN CORPUSCULAR HEMOGLOBIN 30.6 pg (28.0-32.0); MEAN CORPUSCULAR HGB CONC 32.6 g/dl (32.0-36.0); MEAN CORPUSCULAR VOLUME 94.1 fl (83.0-99.0); MEAN PLATELET VOLUME 10.4 fl (9.4-12.3); MONOCYTES ABSOLUTE AUTO 0.8 K/mm3 (0.0-0.8); MONOCYTES PERCENT AUTO 19.5 % (0.0-8.0); NEUTROPHILS ABSOLUTE AUTO 2.6 K/mm3 (1.8-7.7); NEUTROPHILS PERCENT AUTO 65.8 % (41.0-71.0); PLATELET COUNT,PLT 156 K/mm3 (150-400); RED BLOOD CELL COUNT 4.54 M/mm3 (4.10-5.30)
[2024-09-26] MEDS: Cefepime 2 GM in Sodium Chloride 0.9% 50 ML IV ONE (16:54)
[2024-09-26] MEDS: Acetaminophen 325 MG Tab PO ONE (16:55)
[2024-09-26 17:04] LABS: INR 1.01; PROTHROMBIN TIME 10.7 SECONDS (9.7-12.0)
[2024-09-26 17:10] LABS: A/G RATIO 0.7 (1-2); ALBUMIN 2.9 g/dl (3.4-5.0); ANION GAP 14.2 (5-15); BUN/CREATININE RATIO 15.8 (14-18); CALCIUM 7.8 mg/dL (8.5-10.1); CREATININE 1.2 mg/dL (0.55-1.02); EST CRCL DRUG DOSING (CG) 62.42 mL/min; MAGNESIUM 1.5 mg/dL (1.8-2.4); POTASSIUM,K 3.2 mEq/L (3.5-5.1); PROTEIN TOTAL,TP 7.2 g/dl (6.4-8.2)
[2024-09-26] MEDS ORDERED: Magnesium Sulfate (4.06 MEQ/ML) 5 GM/10 ML SDV IV ONE (17:30)
[2024-09-26] MEDS: Aluminum Hydroxide/Magnesium Hydroxide/Simethicone Susp 30 ML Cup PO ONE (18:00)
[2024-09-26 20:38] VITALS: BP 148/94
== END 2024-09-26 19:35 | disposition critical access hospital (66) ==
LOC: JD.ED 14:52
DX: A41.9 Sepsis, unspecified organism (principal); E83.42 Hypomagnesemia; R00.0 Tachycardia, unspecified; E03.9 Hypothyroidism, unspecified; E66.9 Obesity, unspecified; Z68.43 Body mass index [BMI] 50.0-59.9, adult; Z90.49 Acquired absence of other specified parts of digestive tract; Z79.899 Other long term (current) drug therapy; Z79.891 Long term (current) use of opiate analgesic; Z88.5 Allergy status to narcotic agent; Z88.2 Allergy status to sulfonamides; Z88.8 Allergy status to other drugs, medicaments and biological substances; Z91.048 Other nonmedicinal substance allergy status; Z91.011 Allergy to milk products
CPT/HCPCS: 36415; 71045; 80053; 81003; 83605; 83735; 84484; 85025; 85610; 87040; 87428; 93005; 96361; 96365; 96367; 96375; 99285; A9270; C1758; J0692; J1720; J3475; J3490; J7030; 93010; 99291

== ENCOUNTER 2025-03-14 13:42 | Emergency (ER) | payer MEDICARE, MEDICAID ==
[2025-03-14 14:30] LABS: BASOPHILS ABSOLUTE AUTO 0.1 K/mm3 (0.0-0.2); BASOPHILS PERCENT AUTO 0.7 % (0.0-1.0); EOSINOPHILS ABSOLUTE AUTO 0.2 K/mm3 (0.0-0.4); EOSINOPHILS PERCENT AUTO 2.2 % (0.0-6.0); HEMATOCRIT 42.4 % (37.0-47.0); HEMOGLOBIN 13.6 gm/dl (12.0-16.0); IMMATURE GRAN ABSOLUTE AUTO 0.06 K/mm3 (0.00-0.05); IMMATURE GRAN PERCENT AUTO 0.7 % (0.0-0.4); LYMPHOCYTES PERCENT AUTO 12.4 % (24.0-44.0); MEAN CORPUSCULAR HEMOGLOBIN 30.2 pg (28.0-32.0); MEAN CORPUSCULAR HGB CONC 32.1 g/dl (32.0-36.0); MEAN CORPUSCULAR VOLUME 94.2 fl (83.0-99.0); MEAN PLATELET VOLUME 10.5 fl (9.4-12.3); MONOCYTES ABSOLUTE AUTO 0.6 K/mm3 (0.0-0.8); MONOCYTES PERCENT AUTO 7.1 % (0.0-8.0); NEUTROPHILS ABSOLUTE AUTO 6.4 K/mm3 (1.8-7.7); NEUTROPHILS PERCENT AUTO 76.9 % (41.0-71.0); PLATELET COUNT,PLT 197 K/mm3 (150-400); WHITE BLOOD CELL COUNT,WBC 8.36 K/mm3 (3.9-11.3)
[2025-03-14 14:59] LABS: A/G RATIO 0.9 (1-2); ALBUMIN 3.1 g/dl (3.4-5.0); ANION GAP 17.3 (5-15); BILIRUBIN TOTAL 0.6 mg/dL (0.2-1.0); BUN/CREATININE RATIO 10.9 (14-18); CALCIUM 9.1 mg/dL (8.5-10.1); CREATININE 1.1 mg/dL (0.55-1.02); EST CRCL DRUG DOSING (CG) 67.46 mL/min; POTASSIUM,K 4.3 mEq/L (3.5-5.1); PROTEIN TOTAL,TP 6.4 g/dl (6.4-8.2)
[2025-03-14 16:14] VITALS: BP 140/104; PULSE 80
== END 2025-03-14 16:09 | disposition home or self-care (01) ==
LOC: JD.ED 13:42
DX: R56.9 Unspecified convulsions (principal); E66.9 Obesity, unspecified; E03.9 Hypothyroidism, unspecified; Z91.041 Radiographic dye allergy status; Z91.048 Other nonmedicinal substance allergy status; Z88.8 Allergy status to other drugs, medicaments and biological substances; Z88.1 Allergy status to other antibiotic agents; Z88.5 Allergy status to narcotic agent; Z91.011 Allergy to milk products; Z88.2 Allergy status to sulfonamides; Z91.09 Other allergy status, other than to drugs and biological substances; Z91.018 Allergy to other foods; Z79.899 Other long term (current) drug therapy; Z90.49 Acquired absence of other specified parts of digestive tract; Z68.43 Body mass index [BMI] 50.0-59.9, adult
CPT/HCPCS: 36415; 80053; 83735; 85025; 99284

== ENCOUNTER 2025-04-18 13:27 | Emergency (ER) | payer MEDICARE, MEDICAID ==
[2025-04-18 14:11] LABS: BICARBONATE,VENOUS 16.7 meq/L (22-26); O2 SATURATION VENOUS 91.9
[2025-04-18 14:12] LABS: BASE EXCESS VENOUS -6.3 (-4.0-2.0); BASOPHILS PERCENT AUTO 0.3 % (0.0-1.0); EOSINOPHILS ABSOLUTE AUTO 0.1 K/mm3 (0.0-0.4); EOSINOPHILS PERCENT AUTO 1.5 % (0.0-6.0); HEMATOCRIT 44.3 % (37.0-47.0); HEMOGLOBIN 14.7 gm/dl (12.0-16.0); IMMATURE GRAN ABSOLUTE AUTO 0.05 K/mm3 (0.00-0.05); IMMATURE GRAN PERCENT AUTO 0.8 % (0.0-0.4); LYMPHOCYTES PERCENT AUTO 15.3 % (24.0-44.0); MEAN CORPUSCULAR HEMOGLOBIN 31.3 pg (28.0-32.0); MEAN CORPUSCULAR HGB CONC 33.2 g/dl (32.0-36.0); MEAN CORPUSCULAR VOLUME 94.3 fl (83.0-99.0); MEAN PLATELET VOLUME 10.1 fl (9.4-12.3); MONOCYTES ABSOLUTE AUTO 0.6 K/mm3 (0.0-0.8); MONOCYTES PERCENT AUTO 9.3 % (0.0-8.0); NEUTROPHILS ABSOLUTE AUTO 4.8 K/mm3 (1.8-7.7); NEUTROPHILS PERCENT AUTO 72.8 % (41.0-71.0); PLATELET COUNT,PLT 195 K/mm3 (150-400); WHITE BLOOD CELL COUNT,WBC 6.54 K/mm3 (3.9-11.3)
[2025-04-18] MEDS: Dexamethasone 4 MG/ML 5 ML MDV IV ONE (14:40)
[2025-04-18] MEDS: Sodium Chloride 0.9% 1,000 ML IV ONE ×2 (14:40→16:44)
[2025-04-18 14:48] LABS: A/G RATIO 0.6 (1-2); ALANINE AMINOTRANSFERASE,ALT 55 U/L (14-59); ALKALINE PHOSPHATASE 62 U/L (46-116); ANION GAP 15.5 (5-15); ASPARTATE AMNIOTRANSFERASE,AST 39 U/L (15-37); BILIRUBIN TOTAL 0.7 mg/dL (0.2-1.0); BLOOD UREA NITROGEN,BUN 12 mg/dL (7-18); C-REACTIVE PROTEIN <0.05 mg/dL (<0.30); CALCIUM 9.2 mg/dL (8.5-10.1); CARBON DIOXIDE,CO2 20 mEq/L (21-32); CHLORIDE,CL 107 mEq/L (98-107); CREATININE 1.2 mg/dL (0.55-1.02); EST CRCL DRUG DOSING (CG) 71.43 mL/min; ESTIMATED GFR 61 mL/min (>60); GLUCOSE RANDOM 146 mg/dL (70-99); MAGNESIUM 2.1 mg/dL (1.8-2.4); POTASSIUM,K 4.5 mEq/L (3.5-5.1); PROTEIN TOTAL,TP 7.7 g/dl (6.4-8.2); SODIUM,NA 138 mEq/L (136-145); TROPONIN I HIGH SENSITIVITY 9 pg/mL (<=51)
[2025-04-18 14:52] LABS: HCG QUALITATIVE,SERUM NEGATIVE (NEGATIVE)
[2025-04-18 14:55] LABS: PRO B-TYPE NATRIUR PEPT,BNPPRO 138 pg/mL (0-125)
[2025-04-18 14:58] LABS: LACTIC ACID 2.6 mmol/L (0.4-2.0)
[2025-04-18 16:40] LABS: APPEARANCE,URINE CLEAR (Clear); BILIRUBIN,URINE NEGATIVE (Negative); COLOR,URINE YELLOW (Yellow); GLUCOSE,URINE NEGATIVE (Negative); KETONES,URINE NEGATIVE (Negative); LEUKOCYTE ESTERASE,URINE NEGATIVE (Negative); NITRITE,URINE NEGATIVE (Negative); OCCULT BLOOD,URINE TRACE-LYSED (Negative); PROTEIN,URINE NEGATIVE (Negative); UROBILINOGEN,URINE 0.2 (0.2-1.0)
[2025-04-18 16:56] LABS: BACTERIA,URINE FEW /hpf (FEW); EPITHELIAL CELLS,URINE 0-5 /hpf (0-5); MUCUS,URINE FEW /hpf (FEW); RBC,URINE 0-5 /hpf (0-5); WBC,URINE 0-5 /hpf (0-5)
[2025-04-18 17:05] LABS: BARBITURATE SCREEN,URINE NEGATIVE (CUTOFF=200); BENZODIAZEPINES SCREEN,URINE PRESUMPTIVE POSITIVE (CUTOFF=150); BUPRENORPHINE SCREEN,URINE NEGATIVE (CUTOFF=10); METHADONE SCREEN, URINE NEGATIVE (CUTOFF=200); METHAMPHETAMINES SCREEN, URINE NEGATIVE (CUTOFF=500); OXYCODONE SCREEN,URINE NEGATIVE (CUT0FF=100); THC SCREEN,URINE 20 NG/ML NEGATIVE (CUTOFF=50)
[2025-04-18 17:08] LABS: AMPHETAMINES SCREEN, URINE NEGATIVE (CUTOFF=500)
[2025-04-18 19:00] VITALS: BP 118/79; PULSE 91
== END 2025-04-18 18:50 | disposition home or self-care (01) ==
LOC: JD.ED 13:27
DX: R56.9 Unspecified convulsions (principal); Z88.5 Allergy status to narcotic agent; Z91.018 Allergy to other foods; Z88.2 Allergy status to sulfonamides; Z79.899 Other long term (current) drug therapy; Z79.4 Long term (current) use of insulin; Z88.1 Allergy status to other antibiotic agents; Z91.041 Radiographic dye allergy status; Z91.011 Allergy to milk products; Z91.048 Other nonmedicinal substance allergy status; Z88.8 Allergy status to other drugs, medicaments and biological substances
CPT/HCPCS: 36415; 71045; 80053; 80306; 80307; 81001; 82533; 82803; 83605; 83735; 83880; 84443; 84484; 84703; 85025; 85379; 86140; 93005; 96361; 96374; 99285; J1100; J7030; 93010; 99284

== ENCOUNTER 2025-04-21 18:39 | Emergency (ER) | payer MEDICARE, MEDICAID ==
[2025-04-21] MEDS ORDERED: Sodium Chloride 0.9% 10 ML Syringe FLUSH PRN (19:33)
[2025-04-21 19:43] LABS: BASOPHILS ABSOLUTE AUTO 0.0 K/mm3 (0.0-0.2); BASOPHILS PERCENT AUTO 0.5 % (0.0-1.0); EOSINOPHILS ABSOLUTE AUTO 0.1 K/mm3 (0.0-0.4); EOSINOPHILS PERCENT AUTO 1.4 % (0.0-6.0); IMMATURE GRAN ABSOLUTE AUTO 0.06 K/mm3 (0.00-0.05); IMMATURE GRAN PERCENT AUTO 0.9 % (0.0-0.4); LYMPHOCYTES ABSOLUTE AUTO 1.6 K/mm3 (1.0-4.8); LYMPHOCYTES PERCENT AUTO 24.5 % (24.0-44.0); MEAN PLATELET VOLUME 9.8 fl (9.4-12.3); MONOCYTES ABSOLUTE AUTO 0.9 K/mm3 (0.0-0.8); MONOCYTES PERCENT AUTO 14.1 % (0.0-8.0); NEUTROPHILS ABSOLUTE AUTO 3.8 K/mm3 (1.8-7.7); NEUTROPHILS PERCENT AUTO 58.6 % (41.0-71.0); NRBC ABSOLUTE 0.00 (0.00-0.02); NRBC PERCENT 0.0 % (0.0-0.2); PLATELET COUNT,PLT 191 K/mm3 (150-400); RED BLOOD CELL COUNT 4.56 M/mm3 (4.10-5.30); WHITE BLOOD CELL COUNT,WBC 6.46 K/mm3 (3.9-11.3)
[2025-04-21 19:52] LABS: A/G RATIO 0.7 (1-2); ALANINE AMINOTRANSFERASE,ALT 59.0 U/L (14-59); ASPARTATE AMNIOTRANSFERASE,AST 27.0 U/L (15-37); BILIRUBIN TOTAL 0.9 mg/dL (0.2-1.0); BLOOD UREA NITROGEN,BUN 15.0 mg/dL (7-18); CARBON DIOXIDE,CO2 21.0 mEq/L (21-32); CHLORIDE,CL 106.0 mEq/L (98-107); CREATININE 1.0 mg/dL (0.55-1.02); EST CRCL DRUG DOSING (CG) 74.21 mL/min; ESTIMATED GFR 76.0 mL/min (>60); GLUCOSE RANDOM 80.0 mg/dL (70-99); POTASSIUM,K 3.8 mEq/L (3.5-5.1); PROTEIN TOTAL,TP 7.2 g/dl (6.4-8.2); SODIUM,NA 139.0 mEq/L (136-145)
[2025-04-21 20:01] LABS: ETHANOL BLOOD MEDICAL 0.0 gm% (0.00)
[2025-04-21 20:29] LABS: APPEARANCE,URINE CLEAR (Clear); GLUCOSE,URINE NEGATIVE (Negative); OCCULT BLOOD,URINE TRACE-INTACT (Negative)
[2025-04-21 20:36] LABS: BUPRENORPHINE SCREEN,URINE NEGATIVE (CUTOFF=10); METHADONE SCREEN, URINE NEGATIVE (CUTOFF=200); METHAMPHETAMINES SCREEN, URINE NEGATIVE (CUTOFF=500); OXYCODONE SCREEN,URINE NEGATIVE (CUT0FF=100); THC SCREEN,URINE 20 NG/ML NEGATIVE (CUTOFF=50)
[2025-04-21 20:49] LABS: SQUAMOUS EPITHELIAL CELLS,UR 0-5 /hpf (0-5)
[2025-04-21 21:21] LABS: AMPHETAMINES SCREEN, URINE NEGATIVE (CUTOFF=500)
[2025-04-21 23:46] VITALS: BP 154/86; PULSE 69
== END 2025-04-21 22:35 | disposition home or self-care (01) ==
LOC: JD.ED 18:39
DX: R56.9 Unspecified convulsions (principal); E66.9 Obesity, unspecified; Z79.899 Other long term (current) drug therapy; Z88.8 Allergy status to other drugs, medicaments and biological substances; Z88.5 Allergy status to narcotic agent; Z91.041 Radiographic dye allergy status; Z88.2 Allergy status to sulfonamides
CPT/HCPCS: 36415; 70450; 70450-26; 80053; 80306; 80307; 81001; 83735; 84703; 85025; 93005; 99284

== ENCOUNTER 2025-07-08 13:39 | Emergency (ER) | payer MEDICARE, MEDICAID ==
[2025-07-08 14:33] LABS: BASOPHILS ABSOLUTE AUTO 0.0 K/mm3 (0.0-0.2); BASOPHILS PERCENT AUTO 0.5 % (0.0-1.0); EOSINOPHILS ABSOLUTE AUTO 0.0 K/mm3 (0.0-0.4); EOSINOPHILS PERCENT AUTO 0.2 % (0.0-6.0); IMMATURE GRAN ABSOLUTE AUTO 0.13 K/mm3 (0.00-0.05); IMMATURE GRAN PERCENT AUTO 1.5 % (0.0-0.4); LYMPHOCYTES ABSOLUTE AUTO 0.8 K/mm3 (1.0-4.8); LYMPHOCYTES PERCENT AUTO 9.2 % (24.0-44.0); MEAN PLATELET VOLUME 9.8 fl (9.4-12.3); MONOCYTES ABSOLUTE AUTO 0.3 K/mm3 (0.0-0.8); MONOCYTES PERCENT AUTO 2.9 % (0.0-8.0); NEUTROPHILS ABSOLUTE AUTO 7.4 K/mm3 (1.8-7.7); NEUTROPHILS PERCENT AUTO 85.7 % (41.0-71.0); NRBC ABSOLUTE 0.02 (0.00-0.02); NRBC PERCENT 0.2 % (0.0-0.2); PLATELET COUNT,PLT 214 K/mm3 (150-400); RED BLOOD CELL COUNT 4.54 M/mm3 (4.10-5.30); WHITE BLOOD CELL COUNT,WBC 8.67 K/mm3 (3.9-11.3)
[2025-07-08 15:00] LABS: INR 0.97
[2025-07-08 15:02] LABS: PTT,PARTIAL THROMBOPLSTIN TIME 21.7 SECONDS (21.7-31.4)
[2025-07-08 15:07] LABS: A/G RATIO 0.9 (1-2); ALANINE AMINOTRANSFERASE,ALT 44.0 U/L (14-59); ASPARTATE AMNIOTRANSFERASE,AST 44.0 U/L (15-37); BILIRUBIN TOTAL 0.6 mg/dL (0.2-1.0); BLOOD UREA NITROGEN,BUN 13.0 mg/dL (7-18); CARBON DIOXIDE,CO2 19.0 mEq/L (21-32); CHLORIDE,CL 109.0 mEq/L (98-107); CREATININE 1.1 mg/dL (0.55-1.02); EST CRCL DRUG DOSING (CG) 67.46 mL/min; ESTIMATED GFR 68.0 mL/min (>60); GLUCOSE RANDOM 159.0 mg/dL (70-99); POTASSIUM,K 4.4 mEq/L (3.5-5.1); PROTEIN TOTAL,TP 6.5 g/dl (6.4-8.2); SODIUM,NA 140.0 mEq/L (136-145)
[2025-07-08 21:31] VITALS: BP 145/86; PULSE 89
== END 2025-07-08 16:45 | disposition home or self-care (01) ==
LOC: JD.ED 13:39
DX: M54.50 Low back pain, unspecified (principal); R10.9 Unspecified abdominal pain; E03.9 Hypothyroidism, unspecified; Z88.8 Allergy status to other drugs, medicaments and biological substances; Z91.018 Allergy to other foods; Z88.2 Allergy status to sulfonamides; Z91.041 Radiographic dye allergy status; Z79.899 Other long term (current) drug therapy; Z88.1 Allergy status to other antibiotic agents; Z88.5 Allergy status to narcotic agent; Z91.048 Other nonmedicinal substance allergy status; Z79.01 Long term (current) use of anticoagulants; Z90.49 Acquired absence of other specified parts of digestive tract
CPT/HCPCS: 36415; 74176; 74176-26; 80053; 84703; 85025; 85610; 85730; 99285

== ENCOUNTER 2025-07-24 21:17 | Emergency (ER) | payer MEDICARE, MEDICAID ==
[2025-07-24 22:03] VITALS: PULSE 78
[2025-07-24 22:04] LABS: BASOPHILS ABSOLUTE AUTO 0.0 K/mm3 (0.0-0.2); BASOPHILS PERCENT AUTO 0.3 % (0.0-1.0); EOSINOPHILS ABSOLUTE AUTO 0.0 K/mm3 (0.0-0.4); EOSINOPHILS PERCENT AUTO 0.6 % (0.0-6.0); IMMATURE GRAN ABSOLUTE AUTO 0.10 K/mm3 (0.00-0.05); IMMATURE GRAN PERCENT AUTO 1.4 % (0.0-0.4); LYMPHOCYTES ABSOLUTE AUTO 1.7 K/mm3 (1.0-4.8); LYMPHOCYTES PERCENT AUTO 24.4 % (24.0-44.0); MEAN PLATELET VOLUME 10.0 fl (9.4-12.3); MONOCYTES ABSOLUTE AUTO 0.9 K/mm3 (0.0-0.8); MONOCYTES PERCENT AUTO 12.4 % (0.0-8.0); NEUTROPHILS ABSOLUTE AUTO 4.3 K/mm3 (1.8-7.7); NEUTROPHILS PERCENT AUTO 60.9 % (41.0-71.0); NRBC ABSOLUTE 0.00 (0.00-0.02); NRBC PERCENT 0.0 % (0.0-0.2); PLATELET COUNT,PLT 165 K/mm3 (150-400); RED BLOOD CELL COUNT 4.21 M/mm3 (4.10-5.30); WHITE BLOOD CELL COUNT,WBC 7.08 K/mm3 (3.9-11.3)
[2025-07-24 22:26] LABS: A/G RATIO 0.8 (1-2); ALANINE AMINOTRANSFERASE,ALT 30.0 U/L (14-59); ASPARTATE AMNIOTRANSFERASE,AST 30.0 U/L (15-37); BILIRUBIN TOTAL 0.7 mg/dL (0.2-1.0); BLOOD UREA NITROGEN,BUN 16.0 mg/dL (7-18); CARBON DIOXIDE,CO2 23.0 mEq/L (21-32); CHLORIDE,CL 111.0 mEq/L (98-107); CREATININE 1.0 mg/dL (0.55-1.02); EST CRCL DRUG DOSING (CG) 74.21 mL/min; ESTIMATED GFR 76.0 mL/min (>60); GLUCOSE RANDOM 88.0 mg/dL (70-99); POTASSIUM,K 3.7 mEq/L (3.5-5.1); PROTEIN TOTAL,TP 6.2 g/dl (6.4-8.2); SODIUM,NA 142.0 mEq/L (136-145)
[2025-07-24] MEDS: LORazepam 2 MG/ML SDV ONE ×2 (23:06)
[2025-07-24] MEDS: LORazepam 2 MG/ML SDV IVPUSH ONE (23:13)
[2025-07-24] MEDS: Dexamethasone 4 MG/ML 5 ML MDV IV ONE (23:14)
[2025-07-25 00:38] LABS: APPEARANCE,URINE CLEAR (Clear); GLUCOSE,URINE NEGATIVE (Negative); OCCULT BLOOD,URINE NEGATIVE (Negative)
[2025-07-25 00:48] LABS: BUPRENORPHINE SCREEN,URINE NEGATIVE (CUTOFF=10); METHADONE SCREEN, URINE NEGATIVE (CUTOFF=200); METHAMPHETAMINES SCREEN, URINE NEGATIVE (CUTOFF=500); OXYCODONE SCREEN,URINE NEGATIVE (CUT0FF=100); THC SCREEN,URINE 20 NG/ML NEGATIVE (CUTOFF=50)
[2025-07-25 00:56] LABS: AMPHETAMINES SCREEN, URINE NEGATIVE (CUTOFF=500)
[2025-07-25 05:11] VITALS: BP 158/93
== END 2025-07-25 03:20 ==
LOC: JD.ED 21:17
DX: R56.9 Unspecified convulsions (principal); E03.9 Hypothyroidism, unspecified; E66.9 Obesity, unspecified; Z68.43 Body mass index [BMI] 50.0-59.9, adult; Z90.49 Acquired absence of other specified parts of digestive tract; Z88.5 Allergy status to narcotic agent; Z88.2 Allergy status to sulfonamides; Z88.6 Allergy status to analgesic agent; Z88.8 Allergy status to other drugs, medicaments and biological substances; Z91.018 Allergy to other foods; Z91.041 Radiographic dye allergy status; Z79.01 Long term (current) use of anticoagulants; Z79.899 Other long term (current) drug therapy
CPT/HCPCS: 36415; 80053; 80306; 81003; 81025; 83735; 85025; 93005; 96374; 96375; 99284; J1100; J2060; J7030; 93010